=== PATIENT | male | born 1965 | race Caucasian/White ===

== ENCOUNTER 2016-11-06 09:36 | Inpatient (IN) | payer OTHER ==
[2016-11-06] MEDS ORDERED: SODIUM CHLORIDE 0.9% 1,000 ML IV STA ×2 (09:56)
--- NOTE | 2016-11-06 09:59 | ED ---
General Adult HPI - General Source: EMS, RN notes reviewed Mode of arrival: EMS Limitations: no limitations <Leandro Alvares - Last Filed: 11/06/16 10:04> <Hola Granda - Last Filed: 11/06/16 12:44> - General Chief complaint: Seizure Stated complaint: Chest Pain Time Seen by Provider: 11/06/16 09:50 - History of Present Illness Initial comments: Patient's a 21-year-old male significant past medical history for diabetes, hyperlipidemia, who presents emergency room today by EMS, the chief complaint of a seizure that occurred approximate one hour ago. Patient does admit that he was sitting watching TV. He states that he knows his was yelling at him staying over top of him. Per EMS she describes a tonic-clonic type seizure. EMS states he was somewhat postictal on arrival. Patient does admit that he remembers his standing over him asking him what happened and telling them that he had a seizure. Patient denies any other complaints at this time. Does admit to being a daily smoker of greater than pack per day. Patient denies any recent fever, chills, shortness of breath, chest pain, back pain, abdominal pain, nausea or vomiting, numbness or tingling, dysuria or hematuria, constipation or diarrhea, headaches or visual changes, or any other complaints. (Leandro Alvares) - Related Data Home Medications Medication Instructions Recorded Confirmed Aspirin EC [Ecotrin Low Dose] 81 mg PO DAILY 11/06/16 11/06/16 Atorvastatin [Lipitor] 20 mg PO HS 11/06/16 11/06/16 Ibuprofen [Motrin] 200 - 400 mg PO Q6HR PRN 11/06/16 11/06/16 metFORMIN HCL [Glucophage] 500 mg PO BID 11/06/16 11/06/16 Allergies Allergy/AdvReac Type Severity Reaction Status Date / Time No Known Allergies Allergy Verified 11/06/16 10:45 Review of Systems ROS Other: All systems not noted in ROS Statement are negative. <Leandro Alvares - Last Filed: 11/06/16 10:04> ROS Other: All systems not noted in ROS Statement are negative. <Hola Granda - Last Filed: 11/06/16 12:44> ROS Statement: Those systems with pertinent positive or pertinent negative responses have been documented in the HPI. Past Medical History Past Medical History: Coronary Artery Disease (CAD), Diabetes Mellitus, Hyperlipidemia History of Any Multi-Drug Resistant Organisms: None Reported Past Surgical History: Heart Catheterization With Stent Past Psychological History: No Psychological Hx Reported Smoking Status: Current every day smoker Past Alcohol Use History: None Reported Past Drug Use History: Marijuana <Leandro Alvares - Last Filed: 11/06/16 10:04> General Exam Limitations: no limitations <Leandro Alvares - Last Filed: 11/06/16 10:04> <Hola Granda - Last Filed: 11/06/16 12:44> - General Exam Comments Initial Comments: General: The patient is awake and alert, in no distress, and does not appear acutely ill. Eye: Pupils are equal, round and reactive to light, extra-ocular movements are intact. No nystagmus. There is normal conjunctiva bilaterally. No signs of icterus. Ears, nose, mouth and throat: There are moist mucous membranes and no oral lesions. Neck: The neck is supple, there is no tenderness or JVD. Cardiovascular: Tachycardic. No murmur, rub or gallop is appreciated. Respiratory: Lungs are clear to auscultation, respirations are non-labored, breath sounds are equal. No wheezes, stridor, rales, or rhonchi. Gastrointestinal: Soft, non-distended, non-tender abdomen without masses or organomegaly noted. There is no rebound or guarding present. No CVA tenderness. Bowel sounds are unremarkable. Musculoskeletal: Normal ROM, no tenderness. Strength 5/5. Sensation intact. Pulses equal bilaterally 2+. Neurological: A&O x 3. CN II-XII intact, There are no obvious motor or sensory deficits. Coordination appears grossly intact. Speech is normal. Skin: Skin is warm and dry and no rashes or lesions are noted. Psychiatric: Cooperative, appropriate mood & affect, normal judgment. (Leandro Alvares) EKG Findings - EKG Comments: EKG Findings:: EKG performed at 0939: Shows sinus tachycardia to 127 bpm. AR interval 142. QRS 86. QT/QTC 322/467. No acute ST changes. <Leandro Alvares - Last Filed: 11/06/16 10:04> Medical Decision Making <Leandro Alvares - Last Filed: 11/06/16 10:04> - Lab Data Result diagrams: 11/06/16 09:52 11/06/16 09:52 - Radiology Data Radiology results: report reviewed (Computed tomography scan the brain shows no acute intercranial hemorrhage. Evidence of multiple infarcts since previous CT. Computed tomography scan of the chest shows no evidence of pulmonary embolism. There is groundglass opacities, consider pulmonary edema.), image reviewed (Chest x-ray shows some vascular congestion.) <Hola Granda - Last Filed: 11/06/16 12:44> - Medical Decision Making Patient was reevaluated by myself, Dr. Granda. Patient is resting comfortably in bed and has no complaints. Heart rate and pulse ox have improved. Heart rate 88. Pulse ox 95%. Patient and family updated on results and plan. Case discussed in detail with Dr. Hudson, who will admit for Dr. mireles. Consult for pulmonary Dr. Barnett and neurology. Echo. No consult for cardiology at this time. (Hola Granda) - Lab Data Lab Results 11/06/16 11/06/16 11/06/16 Range/Units 09:52 09:52 09:52 WBC 13.7 H (3.8-10.6) k/uL RBC 5.55 (4.30-5.90) m/uL Hgb 16.7 (13.0-17.5) gm/dL Hct 51.7 (39.0-53.0) % MCV 93.2 (80.0-100.0) fL MCH 30.0 (25.0-35.0) pg MCHC 32.2 (31.0-37.0) g/dL RDW 13.3 (11.5-15.5) % Plt Count 261 (150-450) k/uL Neutrophils % 72 % Lymphocytes % 20 % Monocytes % 4 % Eosinophils % 2 % Basophils % 1 % Neutrophils # 10.0 H (1.3-7.7) k/uL Lymphocytes # 2.7 (1.0-4.8) k/uL Monocytes # 0.5 (0-1.0) k/uL Eosinophils # 0.2 (0-0.7) k/uL Basophils # 0.1 (0-0.2) k/uL PT (9.0-12.0) sec INR (<1.1) APTT (22.0-30.0) sec D-Dimer (<0.60) mg/L FEU Sodium 141 (137-145) mmol/L Potassium 4.0 (3.5-5.1) mmol/L Chloride 106 (98-107) mmol/L Carbon Dioxide 18 L (22-30) mmol/L Anion Gap 17 mmol/L BUN 9 (9-20) mg/dL Creatinine 0.76 (0.66-1.25) mg/dL Est GFR (MDRD) Af Amer >60 (>60 ml/min/1.73 sqM) Est GFR (MDRD) Non-Af >60 (>60 ml/min/1.73 sqM) Glucose 266 H (74-99) mg/dL Calcium 9.4 (8.4-10.2) mg/dL Magnesium 1.9 (1.6-2.3) mg/dL Total Bilirubin 0.5 (0.2-1.3) mg/dL AST 33 (17-59) U/L ALT 31 (21-72) U/L Alkaline Phosphatase 101 (38-126) U/L Total Creatine Kinase 114 (55-170) U/L CK-MB (CK-2) 1.6 (0.0-2.4) ng/mL CK-MB (CK-2) Rel Index 1.4 Troponin I 0.028 (0.000-0.034) ng/mL NT-Pro-B Natriuret Pep pg/mL Total Protein 7.8 (6.3-8.2) g/dL Albumin 4.2 (3.5-5.0) g/dL Urine Color Urine Appearance (Clear) Urine pH (5.0-8.0) Ur Specific [place] (1.001-1.035) Urine Protein (Negative) Urine Glucose (UA) (Negative) Urine Ketones (Negative) Urine Blood (Negative) Urine Nitrite (Negative) Urine Bilirubin (Negative) Urine Urobilinogen (<2.0) mg/dL Ur Leukocyte Esterase (Negative) Urine RBC (0-5) /hpf Urine WBC (0-5) /hpf Urine Mucus (None) /hpf 11/06/16 11/06/16 11/06/16 Range/Units 09:52 11:34 12:08 WBC (3.8-10.6) k/uL RBC (4.30-5.90) m/uL Hgb (13.0-17.5) gm/dL Hct (39.0-53.0) % MCV (80.0-100.0) fL MCH (25.0-35.0) pg MCHC (31.0-37.0) g/dL RDW (11.5-15.5) % Plt Count (150-450) k/uL Neutrophils % % Lymphocytes % % Monocytes % % Eosinophils % % Basophils % % Neutrophils # (1.3-7.7) k/uL Lymphocytes # (1.0-4.8) k/uL Monocytes # (0-1.0) k/uL Eosinophils # (0-0.7) k/uL Basophils # (0-0.2) k/uL PT 10.5 (9.0-12.0) sec INR 1.0 (<1.1) APTT 20.8 L (22.0-30.0) sec D-Dimer 15.04 H (<0.60) mg/L FEU Sodium (137-145) mmol/L Potassium (3.5-5.1) mmol/L Chloride (98-107) mmol/L Carbon Dioxide (22-30) mmol/L Anion Gap mmol/L BUN (9-20) mg/dL Creatinine (0.66-1.25) mg/dL Est GFR (MDRD) Af Amer (>60 ml/min/1.73 sqM) Est GFR (MDRD) Non-Af (>60 ml/min/1.73 sqM) Glucose (74-99) mg/dL Calcium (8.4-10.2) mg/dL Magnesium (1.6-2.3) mg/dL Total Bilirubin (0.2-1.3) mg/dL AST (17-59) U/L ALT (21-72) U/L Alkaline Phosphatase (38-126) U/L Total Creatine Kinase (55-170) U/L CK-MB (CK-2) (0.0-2.4) ng/mL CK-MB (CK-2) Rel Index Troponin I (0.000-0.034) ng/mL NT-Pro-B Natriuret Pep 71 pg/mL Total Protein (6.3-8.2) g/dL Albumin (3.5-5.0) g/dL Urine Color Yellow Urine Appearance Clear (Clear) Urine pH 5.5 (5.0-8.0) Ur Specific [place] 1.010 (1.001-1.035) Urine Protein 2+ H (Negative) Urine Glucose (UA) 2+ H (Negative) Urine Ketones Trace H (Negative) Urine Blood Trace H (Negative) Urine Nitrite Negative (Negative) Urine Bilirubin Negative (Negative) Urine Urobilinogen <2.0 (<2.0) mg/dL Ur Leukocyte Esterase Negative (Negative) Urine RBC 1 (0-5) /hpf Urine WBC 1 (0-5) /hpf Urine Mucus Rare H (None) /hpf Disposition <Leandro Alvares - Last Filed: 11/06/16 10:04> Time of Disposition: 12:22 <Hola Granda - Last Filed: 11/06/16 12:44> Clinical Impression: New onset seizure Disposition: ADMITTED IP TO THIS HOSP
[2016-11-06 10:52] LABS: Basophils # (A) 0.1 k/uL (0-0.2); Basophils % (A) 1 %; CH 30.5; CHCM 32.9; Eosinophils # (A) 0.2 k/uL (0-0.7); Eosinophils % (A) 2 %; HCT 51.7 % (39.0-53.0); HDW 2.34; HGB 16.7 gm/dL (13.0-17.5); Luc # (Auto) 0.19; Luc % (Auto) 1; Lymphocytes # (A) 2.7 k/uL (1.0-4.8); Lymphocytes % (A) 20 %; MCHC 32.2 g/dL (31.0-37.0); MCV 93.2 fL (80.0-100.0); Mean Platelet Volume 8.3; Monocytes # (A) 0.5 k/uL (0-1.0); Monocytes % (A) 4 %; Neutrophils % (A) 72 %; RBC 5.55 m/uL (4.30-5.90); RDW 13.3 % (11.5-15.5); WBC 13.7 k/uL (3.8-10.6); WBC (Perox) 13.11
--- NOTE | 2016-11-06 10:52 | CT ---
EXAMINATION TYPE: CT brain wo con DATE OF EXAM: 11/06/2016 10:34 AM COMPARISON: Prior head CT February HISTORY: Seizure activity CT DLP: 1047.10 mGycm Automated exposure control for dose reduction was used. FINDINGS: There is no acute intracranial hemorrhage, mass effect, or midline shift identified. The ventricles and sulci are within normal limits in size. Cerebral vascular calcifications are present. Cortical at rophy is present. There is evidence of interval encephalomalacia in the right occipital lobe, ex vacu o phenomenon present in the occipital horn of the right lateral ventricle. White matter demyelination changes are present. Right and left frontoparietal region show some questionable encephalomalacia is developed in the interval, right temporal lobe shows interval encephalomalacia. The globes are intac t and the visualized sinuses are remarkable for inflammatory change within the sphenoid, ethmoid air cells, bilateral maxillary sinus, mastoids are well aerated.. Cephalohematoma over the posterior jostin etal region. IMPRESSION: No acute intracranial hemorrhage, mass effect, or midline shift is seen. Evidence of chronic small ve ssel ischemia. Multiple infarcts have occurred in the interval from last head CT, correlate to exclud e an embolic phenomenon, MRI may be of benefit
--- NOTE | 2016-11-06 11:00 | XR ---
EXAMINATION TYPE: XR chest 2V DATE OF EXAM: 11/06/2016 10:39 AM COMPARISON: NONE HISTORY: Shortness of breath, heart attack TECHNIQUE: Frontal and lateral views of the chest are obtained on 3 images. FINDINGS: Interstitium is increased. Heart size is within normal limits. No pneumothorax or pleural effusion. Scattered areas of airspace disease present bilaterally. IMPRESSION: Findings may represent pulmonary edema, correlate. Follow-up recommended.
[2016-11-06 11:01] LABS: Prothrombin Time 10.5 sec (9.0-12.0)
[2016-11-06 11:02] LABS: ALT 31 U/L (21-72); AST 33 U/L (17-59); Alkaline Phosphatase 101 U/L (38-126); Anion Gap 17 mmol/L; Blood Urea Nitrogen 9 mg/dL (9-20); Calcium 9.4 mg/dL (8.4-10.2); Carbon Dioxide 18 mmol/L (22-30); Chloride 106 mmol/L (98-107); Glucose 266 mg/dL (74-99); Magnesium 1.9 mg/dL (1.6-2.3); Non-African American GFR(MDRD) >60 (>60 ml/min/1.73 sqM); Sodium 141 mmol/L (137-145); Total Bilirubin 0.5 mg/dL (0.2-1.3); Total Protein 7.8 g/dL (6.3-8.2)
[2016-11-06 11:23] LABS: Partial Thromboplastin Time 20.8 sec (22.0-30.0)
[2016-11-06] MEDS ORDERED: RX INFO: IV CONTRAST WAS GIVEN 1 EACH MISC MISCELLANE PRN (11:29)
[2016-11-06 11:48] LABS: Creatine Kinase MB 1.6 ng/mL (0.0-2.4); Troponin I 0.028 ng/mL (0.000-0.034)
--- NOTE | 2016-11-06 12:14 | CT ---
CT CHEST FOR PULMONARY EMBOLISM. EXAMINATION TYPE: CT angio chest DATE OF EXAM: 11/06/2016 12:06 PM INDICATION: Chest pain. PE. CT DLP: 375.30 mGycm, Automated exposure control for dose reduction was used. CONTRAST: Patient injected with 100 ml mL of Omnipaque 350. COMPARISON: NONE TECHNIQUE: CT of the chest is performed on a spiral scan at 2 mm thick sections. Study is performed with intravenous contrast timed for evaluation for pulmonary embolism. This will limit additional po rtions of the evaluation. 3-D MIP images reconstructed by the technologist are reviewed on the compu ter in the coronal and sagittal planes. FINDINGS: No persistent filling defects are evident to suggest an acute pulmonary embolism. No mediastinal or hilar adenopathy enlarged by CT criteria is evident. Some nonenlarged right hilar a nd subcarinal adenopathy is present. The ascending aorta diameter at the level of the main pulmonary artery is 4.3 cm. The main pulmonary artery diameter at the bifurcation is 3.3 cm. Groundglass opacities are in the upper lung diallo. Some pulmonary edema may be present. Infiltrates in the superior segment lower lobe suggestive for some pulmonary edema. Limited CT section through the upper abdomen are unremarkable. IMPRESSIONS: 1. Diffuse groundglass opacities suggestive for mild pulmonary edema. 2. No suspicious pulmonary emboli.
[2016-11-06 12:20] LABS: Appearance,Urine Clear (Clear); Bilirubin,Urine Negative (Negative); Glucose,Urine (UA) 2+ (Negative); Ketones,Urine Trace (Negative); Leukocyte Esterase,Urine Negative (Negative); Mucus,Urine Rare /hpf; Nitrite,Urine Negative (Negative); PH, Urine 5.5 (5.0-8.0); Particle Count 2113; Protein,Urine 2+ (Negative); RBC,Urine 1 /hpf (0-5); UA Billing (MACRO vs. MICRO) MICRO; Urobilinogen,Urine <2.0 mg/dL (<2.0); WBC,Urine 1 /hpf (0-5)
[2016-11-06] MEDS ORDERED: LORazepam 2 MG/ML SYRINGE IV PRN (12:23)
[2016-11-06] MEDS ORDERED: NALOXONE 0.4 MG/ML 1 ML VIAL IV PRN (12:23)
[2016-11-06] MEDS ORDERED: PHENYTOIN SODIUM INJ 1,000 MG in SODIUM CHLORIDE 0.9% 100 ML IVPB STA (12:31)
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
[2016-11-06 16:54] LABS: Glucose,Whole Blood 172 mg/dL (75-99)
[2016-11-06] MEDS: PHENYTOIN SODIUM EXTENDED 100 MG CAP PO SCH ×2 (17:20→20:57)
--- NOTE | 2016-11-06 17:41 | P.HPIM ---
History of Present Illness H&P Date: 11/06/16 Chief Complaint: New onset seizure John Da Silva is a 51 year old male who presented to [facility] after having a seizure at home. Patient's is at bedside and she states that he was laying on the couch when he started having significant stiffness in his extremities and repetitive movements of his head, this episode lasted 4-5 minutes, patient's called EMS, after 5 minutes he was able to open his eyes he was confused, he states that he never had any seizures before. Patient states that 12 years ago he had a stroke with left sided weakness his symptoms has resolved since then. He also states that he had a myocardial infarction in 2010 he had severe pain in the chest he called EMS and was brought in to [facility] he underwent angioplasty and stent placement of the LAD Patient continues to smoke, he has known history of diabetes mellitus and hyperlipidemia Past Medical History Past Medical History: Coronary Artery Disease (CAD), Diabetes Mellitus, Hyperlipidemia History of Any Multi-Drug Resistant Organisms: None Reported Past Surgical History: Heart Catheterization With Stent Date of Last Stent Placement:: 2003 Past Psychological History: No Psychological Hx Reported Smoking Status: Current every day smoker Past Alcohol Use History: None Reported Past Drug Use History: Marijuana Medications and Allergies Home Medications Medication Instructions Recorded Confirmed Type Aspirin EC [Ecotrin Low Dose] 81 mg PO DAILY 11/06/16 11/06/16 History Atorvastatin [Lipitor] 20 mg PO HS 11/06/16 11/06/16 History Ibuprofen [Motrin] 200 - 400 mg PO Q6HR PRN 11/06/16 11/06/16 History metFORMIN HCL [Glucophage] 500 mg PO BID 11/06/16 11/06/16 History Allergies Allergy/AdvReac Type Severity Reaction Status Date / Time No Known Allergies Allergy Verified 11/06/16 10:45 Physical Exam Vitals: Vital Signs Temp Pulse Pulse Resp BP BP Pulse Ox 11/06/16 16:00 90 16 107/67 92 L 11/06/16 13:40 98.1 F 92 16 108/70 11/06/16 12:55 98.5 F 93 18 104/62 95 Intake and Output 11/06/16 11/06/16 11/06/16 06:59 14:59 22:59 Intake Total 200 Balance 200 Intake: Intake, IV Titration 200 Amount Sodium Chloride 0.9% 1, 200 000 ml @ 100 mls/hr IV . Q10H STA Rx#:[id number] Other: Weight 86.183 kg Patient Weight 11/07/16 06:59 Weight 86.183 kg In general patient is alert and oriented 3 in no apparent distress HEENT head normocephalic and atraumatic Neck is supple no JVD no goiter no lymphadenopathy Chest exam reveals a few scattered crackles no wheezing Cardiac exam reveals regular heart sounds no gallops no murmurs Abdomen is soft nontender no organomegaly was normal bowel sounds Extremity exam reveals no edema no cyanosis or clubbing Neurological examination reveals no gross focal deficit Results CBC & Chem 7: 11/06/16 09:52 11/06/16 09:52 Labs: Abnormal Lab Results - Last 24 Hours (Table) 11/06/16 Range/Units 16:42 POC Glucose (mg/dL) 172 H (75-99) mg/dL Thrombosis Risk Factor Assmnt - Choose All That Apply Each Factor Represents 1 point: Age 41-60 years Thrombosis Risk Factor Assessment Total Risk Factor Score: 1 Thrombosis Risk Factor Assessment Level: Low Risk Assessment and Plan Plan: #1 new onset seizure, patient was started on IV Dilantin in the emergency room consultation for neurology was requested #2 previous history of stroke 12 years ago #3 previous history of coronary artery disease with myocardial infarction in 2010 #4 underlying history of diabetes mellitus type 2 with check hemoglobin A1c #5 underlying history of hyperlipidemia continue statin and check lipid profile #6 seizure precautions #7 for DVT prophylaxis patient will be given Lovenox for GI prophylaxis with give Protonix #8 tobacco abuse counseled in length in regards to smoking cessation counseling more than 10 minutes patient was started on nicotine patch Will follow closely
--- NOTE | 2016-11-06 17:49 | US ---
EXAMINATION TYPE: US carotid duplex BILAT DATE OF EXAM: 11/06/2016 4:34 PM COMPARISON: CT 2017 CLINICAL HISTORY: Multiple strokes. Confusion; abnormal ct EXAM MEASUREMENTS: RIGHT: Peak Systolic Velocity (PSV) cm/sec ----- Right CCA: 42.7 ----- Right ICA: 71.3 ----- Right ECA: 169.4 ICA/CCA ratio: 1.7 RIGHT: End Diastole cm/sec ----- Right CCA: 17.4 ----- Right ICA: 28.5 ----- Right ECA: 0.0 LEFT: Peak Systolic Velocity (PSV) cm/sec ----- Left CCA: 63.6 ----- Left ICA: 89.2 ----- Left ECA: 124.2 ICA/CCA ratio: 1.4 LEFT: End Diastole cm/sec ----- Left CCA: 24.1 ----- Left ICA: 40.0 ----- Left ECA: 33.8 VERTEBRALS (direction of flow): Right Vertebral: Antegrade Left Vertebral: occluded 1. Bilateral intimal thickening; irregular soft plaque within bilateral bulbs. 2. No elevated velocities in either ICA. 3. No significant stenosis. 4. Occluded left vertebral. There is some turbulent flow on the right. IMPRESSION: 1. No flow-limiting stenosis within the internal carotid arteries. 2. Coronary artery. 3. Bilateral atheromatous plaquing and intimal thickening. Criteria for Assigning % of Stenosis / Diameter reduction (Estimation based on the indirect measurements of the internal carotid artery velocities (ICA PSV). 1. Normal (no stenosis)=ICA PSV < 125 cm/s: ratio < 2.0: ICA EDV<40 cm/s. 2. Less than 50% stenosis=ICA PSV < 125 cm/s: ratio < 2.0: ICA EDV<40 cm/s. 3. 50 to 69% stenosis=ICA PSV of 125 to 230 cm/s: ration 2.0 ? 4.0: ICA EDV 40-100 cm/s. 4. Greater than 70% stenosis to near occlusion= ICA PSV > 230 cm/s: ratio > 4.0: ICA EDV > 100 cm/s. 5. Near occlusion= ICA PSV velocities may be low or undetectable: variable ratio and ICA EDV. 6. Total occlusion=unable to detect flow.
[2016-11-06 19:40] LABS: Creatine Kinase MB 5.4 ng/mL (0.0-2.4)
[2016-11-06 19:41] LABS: Troponin I 0.999 ng/mL (0.000-0.034)
[2016-11-06] MEDS: SODIUM CHLORIDE 0.9% 1,000 ML IV SCH (19:43)
[2016-11-06 21:11] LABS: Glucose,Whole Blood 143 mg/dL (75-99)
[2016-11-06] MEDS: NICOTINE 21MG/24HR PATCH TRANSDERM SCH (22:17)
[2016-11-07] MEDS: FUROSEMIDE 10 MG/ML 2 ML VIAL IV SCH ×3 (00:05→20:20)
[2016-11-07] MEDS: PIPERACILLIN-TAZOBACTAM 3.375 GM in DEXTROSE/WATER 1 50ML.BAG IVPB SCH ×2 (00:06→08:50)
[2016-11-07 00:51] LABS: Creatine Kinase MB 5.9 ng/mL (0.0-2.4); Troponin I 1.01 ng/mL (0.000-0.034)
[2016-11-07] MEDS: HYDROcodone/APAP 5-325MG 1 EACH TAB PO PRN ×3 (01:42→20:19)
[2016-11-07] MEDS: MELATONIN 5 MG TABLET PO SCH ×2 (02:15→22:11)
[2016-11-07 06:25] LABS: Glucose,Whole Blood 168 mg/dL (75-99)
[2016-11-07] MEDS: INSULIN LISPRO (humaLOG) 300 UNIT/3 ML VIAL SQ SCH ×4 (06:51→20:59)
[2016-11-07 07:17] LABS: Basophils # (A) 0.1 k/uL (0-0.2); Basophils % (A) 0 %; CH 30.8; CHCM 33.8; Eosinophils # (A) 0.2 k/uL (0-0.7); Eosinophils % (A) 1 %; HCT 45.2 % (39.0-53.0); HGB 14.9 gm/dL (13.0-17.5); Luc # (Auto) 0.32; Luc % (Auto) 2; Lymphocytes % (A) 25 %; MCH 30.2 pg (25.0-35.0); MCHC 32.9 g/dL (31.0-37.0); MCV 91.7 fL (80.0-100.0); Monocytes # (A) 1.1 k/uL (0-1.0); Monocytes % (A) 7 %; Neutrophils # (A) 10.4 k/uL (1.3-7.7); Neutrophils % (A) 65 %; RBC 4.94 m/uL (4.30-5.90); RDW 13.5 % (11.5-15.5); WBC (Perox) 16.91
[2016-11-07 07:35] LABS: ALT 36 U/L (21-72); AST 36 U/L (17-59); Alkaline Phosphatase 86 U/L (38-126); Anion Gap 12 mmol/L; Blood Urea Nitrogen 8 mg/dL (9-20); Calcium 9.5 mg/dL (8.4-10.2); Carbon Dioxide 23 mmol/L (22-30); Chloride 105 mmol/L (98-107); Cholesterol 133 mg/dL (<200); Glucose 164 mg/dL (74-99); HDL Cholesterol 48 mg/dL (40-60); Non-African American GFR(MDRD) >60 (>60 ml/min/1.73 sqM); Sodium 140 mmol/L (137-145); Total Bilirubin 0.9 mg/dL (0.2-1.3); Total Protein 7.2 g/dL (6.3-8.2); Triglycerides 110 mg/dL (<150)
--- NOTE | 2016-11-07 07:51 | XR ---
EXAMINATION TYPE: XR chest 1V portable DATE OF EXAM: 11/07/2016 7:21 AM COMPARISON: 11/06/2016 HISTORY: History of congestive heart failure with concern for aspiration pneumonia TECHNIQUE: Single frontal view of the chest is obtained. FINDINGS: There is no focal air space opacity, pleural effusion, or pneumothorax seen. The previousl y seen interstitial prominence has resolved. The cardiac silhouette size is within normal limits. T he osseous structures are intact. The right costophrenic angle is now deeper on this examination than the prior, likely an incidental finding although reevaluation is recommended. IMPRESSION: 1. Resolved interstitial prominence. 2. No focal consolidation to correspond to the patient's provided history of aspiration pneumonia. 3. Right costophrenic angle is now deeper than on the prior examinations, likely an incidental findin g, although expiratory chest radiograph could be performed if there is clinical suspicion for pneumot horax.
[2016-11-07] MEDS: PHENYTOIN SODIUM EXTENDED 100 MG CAP PO SCH ×3 (08:50→20:19)
[2016-11-07] MEDS: NICOTINE 21MG/24HR PATCH TRANSDERM SCH (08:50)
[2016-11-07] MEDS ORDERED: NITROGLYCERIN SL TABS 0.4 MG TAB SUBLINGUAL PRN ×2 (09:26→13:41)
[2016-11-07] MEDS ORDERED: HEPARIN SODIUM,PORCINE 5,000 UNIT/ML 1 ML VIAL IV ONE (09:27)
[2016-11-07] MEDS ORDERED: HEPARIN SODIUM,PORCINE 5,000 UNIT/ML 1 ML VIAL IV PRN (09:27)
[2016-11-07 09:47] LABS: Appearance,Urine Clear (Clear); Bilirubin,Urine Negative (Negative); Glucose,Urine (UA) Negative (Negative); Ketones,Urine Negative (Negative); Leukocyte Esterase,Urine Negative (Negative); Nitrite,Urine Negative (Negative); Protein,Urine Negative (Negative); Specific Gravity,Urine 1.007 (1.001-1.035); UA Billing (MACRO vs. MICRO) CHEM; Urobilinogen,Urine <2.0 mg/dL (<2.0)
--- NOTE | 2016-11-07 10:06 | P.CRDCN ---
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 The patient was at home with his when he suddenly lost his consciousness. He was brought to the emergency room by ambulance. In the ER he was in acute respiratory distress and he felt better after he was given Lasix IV. Earlier today he was experiencing upper back discomfort. The EKG showed sinus rhythm with ST elevation in aVR and diffuse ST segment depression finding consistent and concerning for proximal LAD disease. The cardiac enzymes were checked and came in to be abnormal and consistent with acute [place]. I am concerned about severe CAD. The patient was ruled in for acute non-STEMI. I recommended proceeding with heart catheterization. I would start the patient on aspirin, metoprolol, and statin. I will obtain an echocardiogram was Doppler. Past Medical History Past Medical History: Coronary Artery Disease (CAD), Diabetes Mellitus, Hyperlipidemia History of Any Multi-Drug Resistant Organisms: None Reported Past Surgical History: Heart Catheterization With Stent Date of Last Stent Placement:: 2003 Past Psychological History: No Psychological Hx Reported Smoking Status: Current every day smoker Past Alcohol Use History: None Reported Past Drug Use History: Marijuana Medications and Allergies Home Medications Medication Instructions Recorded Confirmed Type Aspirin EC [Ecotrin Low Dose] 81 mg PO DAILY 11/06/16 11/06/16 History Atorvastatin [Lipitor] 20 mg PO HS 11/06/16 11/06/16 History Ibuprofen [Motrin] 200 - 400 mg PO Q6HR PRN 11/06/16 11/06/16 History metFORMIN HCL [Glucophage] 500 mg PO BID 11/06/16 11/06/16 History Allergies Allergy/AdvReac Type Severity Reaction Status Date / Time No Known Allergies Allergy Verified 11/06/16 10:45 Physical Exam Vitals: Vital Signs Temp Pulse Pulse Resp BP BP Pulse Ox 11/07/16 08:00 98.7 F 85 16 133/78 94 L 11/07/16 04:00 97.8 F 87 17 132/82 93 L 11/07/16 00:00 98.9 F 97 16 119/76 96 05/06/17 20:00 99.3 F 93 17 102/59 94 L 11/06/16 16:00 90 16 107/67 92 L 11/06/16 13:40 98.1 F 92 16 108/70 11/06/16 12:55 98.5 F 93 18 104/62 95 Intake and Output 11/06/16 11/07/16 11/07/16 22:59 06:59 14:59 Intake Total 460 250 Output Total 820 400 Balance -360 -150 Intake: IV 250 Piperacillin-Tazobactam 3 50 .375 gm In Dextrose/Water 1 50ml.bag @ 12.5 mls/hr IVPB Q8HR ANJEL Rx#: [id number] Sodium Chloride 0.9% 1, 200 000 ml @ 20 mls/hr IV . Q24H ANJEL Rx#:[id number] Intake, IV Titration 200 Amount Sodium Chloride 0.9% 1, 200 000 ml @ 100 mls/hr IV . Q10H STA Rx#:[id number] Oral 260 Output: Urine 820 400 Other: Voiding Method Urinal Urinal # Voids 1 1 Weight 83.1 kg - Constitutional General appearance: no acute distress - Respiratory Respiratory: bilateral: CTA - Cardiovascular Rhythm: regular Heart sounds: normal: S1, S2 Results 11/07/16 06:20 11/07/16 06:20 Cardiac Enzymes 11/06/16 11/07/16 11/07/16 Range/Units 18:00 00:00 06:20 AST 36 (17-59) U/L CK-MB (CK-2) 5.4 H* 5.9 H* (0.0-2.4) ng/mL Troponin I 0.999 H* 1.010 H* (0.000-0.034) ng/mL Lipids 11/07/16 Range/Units 06:20 Triglycerides 110 (<150) mg/dL Cholesterol 133 (<200) mg/dL HDL Cholesterol 48 (40-60) mg/dL CBC 11/07/16 Range/Units 06:20 WBC 16.0 H (3.8-10.6) k/uL RBC 4.94 (4.30-5.90) m/uL Hgb 14.9 (13.0-17.5) gm/dL Hct 45.2 (39.0-53.0) % Plt Count 229 (150-450) k/uL Comprehensive Metabolic Panel 11/07/16 Range/Units 06:20 Sodium 140 (137-145) mmol/L Potassium 4.0 (3.5-5.1) mmol/L Chloride 105 (98-107) mmol/L Carbon Dioxide 23 (22-30) mmol/L BUN 8 L (9-20) mg/dL Creatinine 0.70 (0.66-1.25) mg/dL Glucose 164 H (74-99) mg/dL Calcium 9.5 (8.4-10.2) mg/dL AST 36 (17-59) U/L ALT 36 (21-72) U/L Alkaline Phosphatase 86 (38-126) U/L Total Protein 7.2 (6.3-8.2) g/dL Albumin 4.0 (3.5-5.0) g/dL Current Medications Generic Name Dose Route Start Last Admin Trade Name Freq PRN Reason Stop Dose Admin Hydrocodone Bitart/Acetaminophen 1 each 11/07/16 01:28 11/07/16 06:54 Brenham 5-325 PO 1 each Q6HR PRN Administration Pain Aspirin 325 mg 11/08/16 09:00 Aspirin PO DAILY [facility] Atorvastatin Calcium 80 mg 11/07/16 21:00 Lipitor PO HS ANJEL Furosemide 20 mg 11/06/16 22:30 11/07/16 08:50 Lasix IV 20 mg Q12HR ANJEL Administration Heparin Sodium (Porcine) 0 unit 11/07/16 09:27 Heparin IV PER PROTOCOL PRN Low PTT Protocol Sodium Chloride 1,000 mls @ 20 mls/hr 11/06/16 12:30 11/06/16 19:43 Saline 0.9% IV Not Given .Q24H ANJEL Heparin Sodium/Dextrose 25,000 500 mls @ 19.94 mls/hr 11/07/16 09:30 unit/ IV Solution IV .Q24H [facility] Protocol 12 UNITS/KG/HR Insulin Human Lispro 0 unit 11/07/16 07:30 11/07/16 06:51 Humalog SQ 2 unit ACHS ANJEL Administration Protocol Lorazepam 0.5 mg 11/06/16 12:23 11/07/16 08:57 Ativan IV 0.5 mg Q6HR PRN Administration Anxiety Melatonin 5 mg 11/07/16 02:00 11/07/16 02:15 Melatonin PO 5 mg HS ANJEL Administration Metoprolol Tartrate 12.5 mg 11/07/16 21:00 Lopressor PO BID ANJEL Miscellaneous Information 1 each 11/06/16 11:29 Rx Info: Iv Contrast Was Given MISCELLANE 11/08/16 11:29 DAILY PRN Per Protocol Naloxone HCl 0.2 mg 11/06/16 12:23 Narcan IV Q2M PRN Opioid Reversal Nicotine 1 patch 11/06/16 22:30 11/07/16 08:50 Habitrol 21mg/24hr Patch TRANSDERM 1 patch DAILY ANJEL Administration Nitroglycerin 0.4 mg 11/07/16 09:26 Nitrostat SUBLINGUAL Q5M PRN Chest Pain Phenytoin Sodium 100 mg 11/06/16 16:00 11/07/16 08:50 Dilantin PO 100 mg TID ANJEL Administration Intake and Output 11/06/16 11/07/16 11/07/16 22:59 06:59 14:59 Intake Total 460 250 Output Total 820 400 Balance -360 -150 Intake: IV 250 Piperacillin-Tazobactam 3 50 .375 gm In Dextrose/Water 1 50ml.bag @ 12.5 mls/hr IVPB Q8HR ANJEL Rx#: [id number] Sodium Chloride 0.9% 1, 200 000 ml @ 20 mls/hr IV . Q24H ANJEL Rx#:[id number] Intake, IV Titration 200 Amount Sodium Chloride 0.9% 1, 200 000 ml @ 100 mls/hr IV . Q10H STA Rx#:[id number] Oral 260 Output: Urine 820 400 Other: Voiding Method Urinal Urinal # Voids 1 1 Weight 83.1 kg 11/07/16 06:20 11/07/16 06:20 Assessment and Plan Plan: Assessment #1 acute non-ST #2 CAD and prior LAD stenting #3 significant history of smoking Plan #1 proceeding with heart catheterization #2 start aspirin, statin, and metoprolol #3 an echocardiogram was Doppler #4 follow-up with the patient
--- NOTE | 2016-11-07 10:31 | P.PN ---
Subjective Principal diagnosis: New onset seizure Patient is a 51-year-old male with previous history of coronary artery disease, acute [place] and stent placement 12 years ago also previous history of stroke or presented to [facility] emergency room with what appears to be a seizures that lasted 4-5 minutes per his 's description he was evaluated in emergency room and was started on IV Dilantin and was admitted to telemetry floor. Troponin was elevated on presentation patient was denying any history of chest pain. Cardiology consultation was requested troponin is slightly more elevated today and patient had some EKG changes patient is still denying any chest pain however due to EKG changes and elevated troponin level decision was made to proceed with cardiac catheterization today. On review of systems patient is alert and oriented 3 he denies any complaints at this time no new seizure activity since admission there is no fever or chills no headache no dizziness no chest pain or shortness of breath no cough no nausea or vomiting no abdominal pain no diarrhea or constipation and no urinary symptoms Objective - Vital Signs Vital signs: Vital Signs Temp 98.7 F 11/07/16 08:00 Pulse 85 11/07/16 08:00 Resp 16 11/07/16 08:00 BP 133/78 11/07/16 08:00 Pulse Ox 94 L 11/07/16 08:00 Intake & Output 11/06/16 11/07/16 11/07/16 18:59 06:59 18:59 Intake Total 460 250 Output Total 1220 Balance 460 -970 Weight 86.183 kg 83.1 kg Intake: IV 250 Piperacillin-Tazobactam 3 50 .375 gm In Dextrose/Water 1 50ml.bag @ 12.5 mls/hr IVPB Q8HR ANJEL Rx#: [id number] Sodium Chloride 0.9% 1, 200 000 ml @ 20 mls/hr IV . Q24H ANJEL Rx#:[id number] Intake, IV Titration 200 Amount Sodium Chloride 0.9% 1, 200 000 ml @ 100 mls/hr IV . Q10H STA Rx#:[id number] Oral 260 Output: Urine 1220 Other: Voiding Method Urinal # Voids 1 - Exam HEENT head normocephalic and atraumatic Neck is supple no JVD no goiter no lymphadenopathy Chest exam reveals clear respiratory sounds no crackles no wheezing Cardiac exam reveals regular heart sounds S1 and S2 no gallops no murmurs Abdomen is soft nontender no organomegaly with normal bowel sounds Extremity exam reveals no edema no cyanosis or clubbing - Labs CBC & Chem 7: 11/07/16 06:20 11/07/16 06:20 Labs: Abnormal Lab Results - Last 24 Hours (Table) 11/06/16 11/06/16 11/06/16 Range/Units 16:42 18:00 21:08 WBC (3.8-10.6) k/uL Neutrophils # (1.3-7.7) k/uL Monocytes # (0-1.0) k/uL BUN (9-20) mg/dL Glucose (74-99) mg/dL POC Glucose (mg/dL) 172 H 143 H (75-99) mg/dL Total Creatine Kinase 314 H (55-170) U/L CK-MB (CK-2) 5.4 H* (0.0-2.4) ng/mL Troponin I 0.999 H* (0.000-0.034) ng/mL 11/07/16 11/07/16 11/07/16 Range/Units 00:00 06:20 06:20 WBC 16.0 H (3.8-10.6) k/uL Neutrophils # 10.4 H (1.3-7.7) k/uL Monocytes # 1.1 H (0-1.0) k/uL BUN 8 L (9-20) mg/dL Glucose 164 H (74-99) mg/dL POC Glucose (mg/dL) (75-99) mg/dL Total Creatine Kinase 393 H (55-170) U/L CK-MB (CK-2) 5.9 H* (0.0-2.4) ng/mL Troponin I 1.010 H* (0.000-0.034) ng/mL 11/07/16 Range/Units 06:23 WBC (3.8-10.6) k/uL Neutrophils # (1.3-7.7) k/uL Monocytes # (0-1.0) k/uL BUN (9-20) mg/dL Glucose (74-99) mg/dL POC Glucose (mg/dL) 168 H (75-99) mg/dL Total Creatine Kinase (55-170) U/L CK-MB (CK-2) (0.0-2.4) ng/mL Troponin I (0.000-0.034) ng/mL Assessment and Plan Plan: #1 new onset seizure, patient was started on IV Dilantin in the emergency room consultation for neurology was requested #2 previous history of stroke 12 years ago #3 previous history of coronary artery disease with myocardial infarction in 2010 #4 underlying history of diabetes mellitus type 2 with check hemoglobin A1c #5 underlying history of hyperlipidemia continue statin and check lipid profile #6 EKG changes and elevated troponin levels patient was evaluated by cardiology and plan is to proceed was cardiac catheterization today #7 for DVT prophylaxis patient will be given Lovenox for GI prophylaxis with give Protonix #8 tobacco abuse counseled in length in regards to smoking cessation counseling more than 10 minutes patient was started on nicotine patch Will follow closely
[2016-11-07 10:33] LABS: Basophils # (A) 0.1 k/uL (0-0.2); Basophils % (A) 1 %; CH 30.8; CHCM 33.8; Eosinophils # (A) 0.2 k/uL (0-0.7); Eosinophils % (A) 2 %; HCT 44.8 % (39.0-53.0); Luc % (Auto) 2; Lymphocytes # (A) 3.5 k/uL (1.0-4.8); Lymphocytes % (A) 26 %; MCH 30.6 pg (25.0-35.0); MCHC 33.4 g/dL (31.0-37.0); MCV 91.6 fL (80.0-100.0); Mean Platelet Volume 7.9; Monocytes # (A) 0.7 k/uL (0-1.0); Monocytes % (A) 5 %; Neutrophils % (A) 66 %; RBC 4.89 m/uL (4.30-5.90); RDW 13.4 % (11.5-15.5); WBC 13.7 k/uL (3.8-10.6); WBC (Perox) 13.62
--- NOTE | 2016-11-07 10:38 | P.CNPUL ---
History of Present Illness Consult date: 11/07/16 Requesting physician: Wu Hudson Reason for consult: other (Abnormal chest x-ray suggestive of congestive heart failure) Chief complaint: Seizure episode. History of present illness: This is a 51-year-old white male with history of multiple medical problems including diabetes, hyperlipidemia, coronary artery disease and previous stent placement, patient was brought into the ER after an episode of tonic clonic contractions suggestive of a grand mal seizure. This was witnessed by his while he was sitting and watching television. Patient was brought into the ER, and he was post ictal on arrival. Chest x-ray on admission showed evidence of interstitial edema. No history to suggest aspiration. However that was definitely in the differential based on the chest x-ray. Last night I reviewed the chest x-ray, and I recommended diuretics, I also recommended empiric antibiotics in the form of Zosyn. Today's chest x-ray showed a significant and dramatic improvement over the last 12 hours. Hence I will go ahead and discontinue antibiotics, I recommended keeping diuretics on board, and I discussed his condition with the seismographer who was consulted mostly because of his abnormal troponin and his underlying history of coronary artery disease. At the time of my evaluation today, patient is relatively asymptomatic, he would like to be discharged home, denies any cough no wheezing no shortness of breath no chest pain. EKG showed sinus rhythm with ST elevation in aVR and diffuse ST segment depression suggestive of proximal LAD disease. And considering his abnormal troponin, patient is being considered for possible cardiac catheterization. In the meantime he was started on aspirin and metoprolol and statins. Echocardiogram is pending. Review of Systems 14 point review of systems were obtained, please refer to pertinent positives and negatives as per HPI. Presently, the patient denies any headaches, no blurred vision, no dizziness. No shortness of breath no cough no wheezing. No chest pain no palpitations. No nausea no vomiting no abdominal pain no melena no hematemesis no dysuria frequency or urgency. Patient has some vague back pain. Past Medical History Past Medical History: Coronary Artery Disease (CAD), Diabetes Mellitus, Hyperlipidemia History of Any Multi-Drug Resistant Organisms: None Reported Past Surgical History: Heart Catheterization With Stent Date of Last Stent Placement:: 2003 Past Psychological History: No Psychological Hx Reported Smoking Status: Current every day smoker Past Alcohol Use History: None Reported Past Drug Use History: Marijuana Medications and Allergies Home Medications Medication Instructions Recorded Confirmed Type Aspirin EC [Ecotrin Low Dose] 81 mg PO DAILY 11/06/16 11/06/16 History Atorvastatin [Lipitor] 20 mg PO HS 11/06/16 11/06/16 History Ibuprofen [Motrin] 200 - 400 mg PO Q6HR PRN 11/06/16 11/06/16 History metFORMIN HCL [Glucophage] 500 mg PO BID 11/06/16 11/06/16 History Allergies Allergy/AdvReac Type Severity Reaction Status Date / Time No Known Allergies Allergy Verified 11/06/16 10:45 Physical Exam Vitals: Vital Signs Temp Pulse Pulse Resp BP BP Pulse Ox 11/07/16 08:00 98.7 F 85 16 133/78 94 L 11/07/16 04:00 97.8 F 87 17 132/82 93 L 11/07/16 00:00 98.9 F 97 16 119/76 96 11/06/16 20:00 99.3 F 93 17 102/59 94 L 11/06/16 16:00 90 16 107/67 92 L 11/06/16 13:40 98.1 F 92 16 108/70 11/06/16 12:55 98.5 F 93 18 104/62 95 Intake and Output 11/06/16 11/07/16 11/07/16 22:59 06:59 14:59 Intake Total 460 250 Output Total 820 400 Balance -360 -150 Intake: IV 250 Piperacillin-Tazobactam 3 50 .375 gm In Dextrose/Water 1 50ml.bag @ 12.5 mls/hr IVPB Q8HR ANJEL Rx#: [id number] Sodium Chloride 0.9% 1, 200 000 ml @ 20 mls/hr IV . Q24H ANJEL Rx#:[id number] Intake, IV Titration 200 Amount Sodium Chloride 0.9% 1, 200 000 ml @ 100 mls/hr IV . Q10H STA Rx#:[id number] Oral 260 Output: Urine 820 400 Other: Voiding Method Urinal Urinal # Voids 1 1 Weight 83.1 kg Physical Exam: Revealed a 51-year-old white male in no distress. HEENT:[Neck is supple.] [No neck masses.] [No thyromegaly.] [No JVD.] Chest: [Clear throughout, no crackles, no rhonchi, no wheezes.] Cardiac Exam: [Normal S1 and S2, no S3 gallop, no murmur.] Abdomen: [Soft, nontender, no megaly, no rebound, no guarding, normal bowel sounds.] Extremities: [No clubbing, no edema, no cyanosis.] Neurological Exam: [No focal neurologic deficit.] Results - Laboratory Findings CBC and BMP: 11/07/16 06:20 11/07/16 06:20 PT/INR, D-dimer PT 10.5 sec (9.0-12.0) 11/06/16 09:52 INR 1.0 (<1.1) 11/06/16 09:52 D-Dimer 15.04 mg/L FEU (<0.60) H 11/06/16 09:52 Abnormal lab findings: Abnormal Labs 11/06/16 11/06/16 11/06/16 16:42 18:00 21:08 WBC Neutrophils # Monocytes # BUN Glucose POC Glucose (mg/dL) 172 H 143 H Total Creatine Kinase 314 H CK-MB (CK-2) 5.4 H* Troponin I 0.999 H* 11/07/16 11/07/16 11/07/16 00:00 06:20 06:20 WBC 16.0 H Neutrophils # 10.4 H Monocytes # 1.1 H BUN 8 L Glucose 164 H POC Glucose (mg/dL) Total Creatine Kinase 393 H CK-MB (CK-2) 5.9 H* Troponin I 1.010 H* 11/07/16 06:23 WBC Neutrophils # Monocytes # BUN Glucose POC Glucose (mg/dL) 168 H Total Creatine Kinase CK-MB (CK-2) Troponin I - Diagnostic Findings Chest x-ray: image reviewed (Significant improvement of his interstitial edema and pulmonary vasculature prominence overnight.) Assessment and Plan Plan: Impression: 1 acute non-ST elevation myocardial infarction 2 acute pulmonary edema, resolved 3 acute new onset grand mal seizure, remote history of head trauma as a child. But no history of documented seizures in the past. Patient was loaded with Dilantin in the ER, and a neurological consultation was initiated. 4 history of documented coronary artery disease and previous stent placement 5 history of type 2 diabetes 6 history of dyslipidemia. 7 history of tobacco dependence syndrome, counseled regarding smoking cessation. Recommendation: Continue present treatment plan, continue seizure precautions, GI and DVT prophylaxis, diuretics, patient is scheduled to have cardiac catheterization, and we'll continue to follow. Discussed the patient's condition with the seismographer on the case. Time with Patient: Greater than 30
[2016-11-07 10:48] LABS: INR 1.1 (<1.1)
[2016-11-07 10:49] LABS: Partial Thromboplastin Time 23.8 sec (22.0-30.0); Prothrombin Time 11.2 sec (9.0-12.0)
[2016-11-07] MEDS ORDERED: VERAPAMIL 2.5 MG/ML 2 ML AMP ONE (11:46)
[2016-11-07] MEDS ORDERED: ASPIRIN 325 MG TAB ONE (11:47)
[2016-11-07] MEDS ORDERED: LIDOCAINE 2% INJ 20 MG/ML (20 ML MDV) ONE (11:47)
[2016-11-07] MEDS ORDERED: HEPARIN SODIUM 1,000 UNIT/ML VIAL ONE (11:54)
[2016-11-07] MEDS ORDERED: MIDAZOLAM 2 MG/2 ML VIAL ONE ×2 (11:54→12:48)
[2016-11-07] MEDS ORDERED: ASPIRIN 325 MG TAB PO ONE (11:58)
[2016-11-07] MEDS ORDERED: SODIUM CHLORIDE 0.9% 250 ML IV ONE (11:59)
[2016-11-07] MEDS ORDERED: IV FLUID CONTINUATION 1,000 ML IV ONE (11:59)
[2016-11-07] MEDS ORDERED: LIDOCAINE 2% INJ 20 MG/ML SQ ONE ×2 (12:22→12:24)
[2016-11-07] MEDS ORDERED: METOPROLOL TARTRATE 5 MG/5 ML VIAL IVP ONE ×2 (12:23→12:25)
[2016-11-07] MEDS: MIDAZOLAM 2 MG/2 ML VIAL IV ONE ×5 (12:24→13:26)
[2016-11-07] MEDS ORDERED: VERAPAMIL SYRINGE (5 MG/10 ML) INTRAARTER ONE (12:24)
[2016-11-07] MEDS: VERAPAMIL SYRINGE (5 MG/10 ML) INTRAARTER ONE ×2 (12:25→13:34)
[2016-11-07] MEDS ORDERED: BIVALIRUDIN BOLUS 250 MG/50 ML IV ONE (12:35)
[2016-11-07] MEDS ORDERED: BIVALIRUDIN 250 MG in SODIUM CHLORIDE 0.9% 50 ML IV ONE (12:36)
[2016-11-07] MEDS ORDERED: IOHEXOL 350 MG/ML 125ML BOTTLE INJ ONE (13:31)
[2016-11-07] MEDS ORDERED: ATROPINE SULFATE 0.1 MG/ML 10ML SYRINGE IV PRN (13:41)
[2016-11-07] MEDS ORDERED: RX INFO: IV CONTRAST WAS GIVEN 1 EACH MISC MISCELLANE PRN (13:41)
[2016-11-07] MEDS ORDERED: MAG HYDROX/AL HYDROX/SIMETH 30 ML CUP PO PRN (13:41)
[2016-11-07] MEDS ORDERED: SODIUM CHLORIDE 0.9% 1,000 ML IV SCH (13:45)
--- NOTE | 2016-11-07 14:28 | CC ---
DATE OF SERVICE: November 07, 2016. Performing physician: Gurmeet Garcia, signal engineer. PROCEDURE PERFORMED: 1. Selective right and left coronary angiogram. 2. Left heart catheterization. 3. Left ventriculography. 4. Attempted balloon angioplasty of the LAD. INDICATION: This is a pleasant 51-year-old gentleman with a past medical history significant for coronary artery disease and prior stenting of the LAD in 2003 was admitted to the hospital with seizure episode. He was ruled in for acute [id number] myocardial infarction with significantly abnormal troponin and EKG changes consistent with ischemia. He was brought today to undergo a heart catheterization. Approach: Right radial artery. COMPLICATIONS: None. Level of sedation: Moderate with sedation length of 58 minutes. PROCEDURE DESCRIPTION: After obtaining an informed consent, the patient was brought to the cardiac slab conditioner supervisor. Right radial artery was cannulated using micropuncture technique. The micropuncture wire passed easily, then I placed a 6 Bengali sheath in the right radial artery. Subsequently I gave the patient 2 mg of verapamil IA. I did not give any heparin because I was planning to do an intervention. I did selective right and left coronary angiogram using JR4 catheter for the right coronary artery and JL 3.5 guiding catheter for the left coronary system. I did left heart catheterization and then LV gram using a 5 Bengali pigtail catheter. After that, I did attempt balloon angioplasty of the LAD. Please see separate paragraph for that. SELECTIVE CORONARY ANGIOGRAM: 1. The right coronary artery is a large-caliber vessel and it is a dominant vessel. The proximal RCA appeared to have mild disease only. The mid RCA appeared to have intermediate disease in the range of 50%. The RCA distally appeared to be diffusely diseased up to about 70% to 80%. It bifurcates into PDA and PLV branches. The PDA and PLV branches are angiographically normal. Left to right collaterals filling the distal LAD was seen during injecting the RCA. 2. The left main has mild disease only, it bifurcates into the left circumflex and left anterior descending artery. 3. The left circumflex is a large-caliber vessel and it is a nondominant vessel. The proximal circumflex appeared to have mild disease only. The mid circumflex is normal and gives rise into a large first OM branch, which has mild disease in the proximal portion. Then the circ continues after that as a small-caliber vessel in the AV groove. 4. The LAD, the ostial LAD appeared to have a lesion in the range of 70%. The very proximal LAD is occluded with in-stent occlusion. HEMODYNAMICS: The left ventricular end-diastolic pressure was 20 mmHg and no gradient was seen across the aortic valve. Left ventriculography was performed in the RIVERA projection and using a power injection. The left ventricular systolic function is severely impaired with an ejection fraction of about 20% to 25% with dilated LV and anterior, apical, and inferoapical hypokinesia. The only part of the heart roberto seems to be the basal inferior wall. PCI of the LAD: Anticoagulation was initiated using Angiomax. Subsequently, I did engage the LAD using JL 3.5 guiding catheter. I an attempted crossing the total occlusion of the proximal LAD using a whisper wire, choice PT wire, a run-through wire, filter XT wire, and ( ) wire and I was unable to cross that. Occlusion, seems to be chronic more than acute. At that point, the procedure was completed. CONCLUSION: 1. Severe two vessel coronary artery disease. 2. Severe disease involving the distal dominant right coronary artery. 3. 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 4. Mild disease involving the left circumflex coronary artery. 5. Severely impaired left ventricular function with an ejection fraction of 20% to 25%. POSTPROCEDURE MANAGEMENT: 1. At this point I would maximize medical treatment. 2. ( ) study as an outpatient using either MRI or thallium will be performed to assess the ( ) of the anterior wall. 3. Will continue following up with the patient.
[2016-11-07] MEDS ORDERED: PHENYTOIN SODIUM EXTENDED 100 MG CAP PO STA (15:23)
[2016-11-07 17:20] LABS: Glucose,Whole Blood 181 mg/dL (75-99)
[2016-11-07] MEDS: HEPARIN SODIUM,PORCINE/D5W PMX 25,000 UNIT in DEXTROSE/WATER 1 500ML.BAG IV SCH ×2 (17:23→21:31)
--- NOTE | 2016-11-07 17:32 | ECHOF ---
Referral Reason:r/o chf MEASUREMENTS -------- HEIGHT: 177.8 cm WEIGHT: 86.2 kg BP: 137/86 RVIDd: 3.3 cm (< 3.3) IVSd: 1.5 cm (0.6 - 1.1) LVIDd: 5.5 cm (3.9 - 5.3) LVPWd: 1.2 cm (0.6 - 1.1) IVSs: 1.7 cm LVIDs: 4.9 cm LVPWs: 1.2 cm LA Diam: 3.8 cm (2.7 - 3.8) LAESV Index (A-L): 25.40 ml/m Ao Diam: 3.7 cm (2.0 - 3.7) AV Cusp: 2.0 cm (1.5 - 2.6) MV EXCURSION: 20.477 mm (> 18.000) MV EF SLOPE: 145 mm/s (70 - 150) EPSS: 0.8 cm MV E Lupillo: 0.84 m/s MV DecT: 195 ms MV A Lpuillo: 0.69 m/s MV E/A Ratio: 1.23 RAP: 5.00 mmHg RVSP: 37.75 mmHg FINDINGS -------- This was a technically good study. The left ventricular size is normal. There is moderate concentric left ventricular hypertrophy. Overall left ventricular systolic function is severely impaired with, an EF between 25 - 30 %. The right ventricle is mildly enlarged. Normal LA size by volume 22+/-6 ml/m2. The right atrium is normal in size. Aortic valve is trileaflet and is mildly thickened. There is trace to mild mitral regurgitation. Mild tricuspid regurgitation present. There is mild pulmonary hypertension. Trace/mild (physiologic) pulmonic regurgitation. The aortic root is dilated measuring 3.7cm. Normal inferior vena cava with normal inspiratory collapse consistent with estimated right atrial pressure of 5 mmHg. The pericardium is normal. CONCLUSIONS -------- 1. This was a technically good study. 2. There is mild pulmonary hypertension. 3. Trace/mild (physiologic) pulmonic regurgitation. 4. The aortic root is dilated measuring 3.7cm. 5. The pericardium is normal. 6. The left ventricular size is normal. 7. There is moderate concentric left ventricular hypertrophy. 8. Overall left ventricular systolic function is severely impaired with, an EF between 25 - 30 %. 9. The right ventricle is mildly enlarged. 10. Normal LA size by volume 22+/-6 ml/m2. 11. Aortic valve is trileaflet and is mildly thickened. 12. There is trace to mild mitral regurgitation. 13. Mild tricuspid regurgitation present. MANAGER PRODUCTION: Ainsley Brennan RDCS
[2016-11-07] MEDS: SODIUM CHLORIDE 0.9% 1,000 ML IV SCH (19:27)
[2016-11-07] MEDS ORDERED: MAGNESIUM HYDROXIDE 2,400 MG/10 ML CUP PO PRN (19:46)
[2016-11-07] MEDS: METOPROLOL TARTRATE 12.5 MG TAB PO SCH (20:19)
[2016-11-07] MEDS: ATORVASTATIN 80 MG TAB PO SCH (20:20)
[2016-11-07] MEDS ORDERED: MELATONIN 5 MG TABLET PO SCH (21:00)
[2016-11-07 21:09] LABS: Glucose,Whole Blood 139 mg/dL (75-99)
[2016-11-07] MEDS: ZOLPIDEM 5 MG TAB PO PRN (22:11)
[2016-11-08 03:33] LABS: Basophils # (A) 0.1 k/uL (0-0.2); Basophils % (A) 1 %; CH 30.6; CHCM 33.5; Eosinophils # (A) 0.2 k/uL (0-0.7); Eosinophils % (A) 2 %; HCT 43.3 % (39.0-53.0); HDW 2.24; HGB 14.5 gm/dL (13.0-17.5); Luc % (Auto) 2; Lymphocytes # (A) 2.8 k/uL (1.0-4.8); Lymphocytes % (A) 21 %; MCH 30.7 pg (25.0-35.0); MCHC 33.5 g/dL (31.0-37.0); MCV 91.8 fL (80.0-100.0); Monocytes # (A) 0.9 k/uL (0-1.0); Monocytes % (A) 7 %; Neutrophils # (A) 8.6 k/uL (1.3-7.7); Neutrophils % (A) 67 %; RBC 4.72 m/uL (4.30-5.90); RDW 13.3 % (11.5-15.5); WBC 12.9 k/uL (3.8-10.6); WBC (Perox) 12.36
[2016-11-08 03:52] LABS: ALT 39 U/L (21-72); AST 55 U/L (17-59); Alkaline Phosphatase 86 U/L (38-126); Anion Gap 9 mmol/L; Blood Urea Nitrogen 10 mg/dL (9-20); Calcium 9.3 mg/dL (8.4-10.2); Carbon Dioxide 26 mmol/L (22-30); Chloride 103 mmol/L (98-107); Glucose 184 mg/dL (74-99); Non-African American GFR(MDRD) >60 (>60 ml/min/1.73 sqM); Sodium 138 mmol/L (137-145); Total Bilirubin 0.9 mg/dL (0.2-1.3)
[2016-11-08 06:50] LABS: Glucose,Whole Blood 192 mg/dL (75-99)
[2016-11-08] MEDS: INSULIN LISPRO (humaLOG) 300 UNIT/3 ML VIAL SQ SCH ×4 (06:52→20:58)
[2016-11-08] MEDS: NICOTINE 21MG/24HR PATCH TRANSDERM SCH (07:49)
[2016-11-08] MEDS: ASPIRIN 325 MG TAB PO SCH (07:49)
[2016-11-08] MEDS: METOPROLOL TARTRATE 12.5 MG TAB PO SCH ×3 (07:49→21:59)
[2016-11-08] MEDS: PHENYTOIN SODIUM EXTENDED 100 MG CAP PO SCH ×4 (07:50→21:58)
[2016-11-08] MEDS: FUROSEMIDE 10 MG/ML 2 ML VIAL IV SCH (07:57)
[2016-11-08 11:32] LABS: Glucose,Whole Blood 173 mg/dL (75-99)
--- NOTE | 2016-11-08 11:37 | MR ---
EXAMINATION TYPE: MR brain wo con DATE OF EXAM: 11/08/2016 11:17 AM COMPARISON: CT brain 11/06/2016 HISTORY: New onset seizure, hx multiple strokes T1-weighted sagittal, T2, FLAIR, and diffusion axial, and T2 coronal coronal views of the brain are s ubmitted. There are 2 areas of abnormal signal on diffusion imaging within the right temporal lobe with the lar gest measuring 9 mm. Suspect additional area within the right occipital lobe and additional punctate third area within the right temporal lobe on axial image 13. Mild to moderate generalized degenerative change. Abnormal signal seen within the basal ganglia and e xternal capsule on the right likely in the basis of remote ischemia. There are multiple areas of abno rmal signal seen scattered throughout the white matter bilaterally with findings suggestive of remote ischemic change. Area of encephalomalacia and remote ischemia involving the right occipital lobe. Craniocervical junction maintained. Sella turcica has a normal appearance. No cerebellopontine angle mass. Changes of chronic sinusitis noted. IMPRESSION: 1. Multiple small less than 1 cm areas of acute ischemia within the right temporal lobe and a single subcentimeter area within the right occipital lobe with no significant mass effect. Report called to the patient's nurse. 2. Degenerative and remote ischemic change.
[2016-11-08] MEDS: CLOPIDOGREL 75 MG TAB PO SCH (11:39)
[2016-11-08] MEDS: SODIUM CHLORIDE 0.9% 1,000 ML IV SCH (11:48)
--- NOTE | 2016-11-08 13:10 | P.PN ---
Subjective Patient is doing well today. He denies any chest pain. No seizure activity since admission. No events overnight. Objective - Vital Signs Vital signs: Vital Signs Temp 97.1 F L 11/08/16 07:47 Pulse 103 H 11/08/16 11:37 Resp 17 11/08/16 11:37 BP 121/93 11/08/16 11:37 Pulse Ox 95 11/08/16 11:37 Intake & Output 11/07/16 11/08/16 11/08/16 18:59 06:59 18:59 Intake Total 162.39 535.26 200 Output Total 400 Balance -237.61 535.26 200 Weight 81.7 kg Intake: IV 162.39 400 80 Heparin Sodium,Porcine/ 200 D5w Pmx 25,000 unit In Dextrose/Water 1 500ml. bag @ 12 UNITS/KG/HR 19. 94 mls/hr IV .Q24H ANJ[facility] Rx #:[id number] Sodium Chloride 0.9% 1, 200 80 000 ml @ 20 mls/hr IV . Q24H ANJEL Rx#:[id number] Intake, IV Titration 135.26 Amount Heparin Sodium,Porcine/ 135.26 D5w Pmx 25,000 unit In Dextrose/Water 1 500ml. bag @ 12 UNITS/KG/HR 19. 94 mls/hr IV .Q24H ANJEL Rx #:[id number] Oral 120 Output: Urine 400 Other: Voiding Method Urinal Toilet Toilet # Voids 1 1 - Exam General: The patient is awake and alert, in no distress Eye: there is normal conjunctiva bilaterally. Neck: The neck is supple, there is no JVD. Cardiovascular: Normal S1-S2, no S3-S4, no murmurs. Respiratory: Lungs clear to auscultation bilaterally Gastrointestinal: Abdomen is soft, nontender Musculoskeletal: There is no pedal edema. Neurological:. Speech is normal. Skin: Skin is warm and dry - Labs CBC & Chem 7: 11/08/16 03:04 11/08/16 03:04 Labs: Abnormal Lab Results - Last 24 Hours (Table) 11/07/16 11/07/16 11/07/16 Range/Units 15:46 16:52 20:53 WBC (3.8-10.6) k/uL Neutrophils # (1.3-7.7) k/uL APTT 34.3 H (22.0-30.0) sec Creatinine (0.66-1.25) mg/dL Glucose (74-99) mg/dL POC Glucose (mg/dL) 181 H 139 H (75-99) mg/dL 11/08/16 11/08/16 11/08/16 Range/Units 03:04 03:04 06:13 WBC 12.9 H (3.8-10.6) k/uL Neutrophils # 8.6 H (1.3-7.7) k/uL APTT (22.0-30.0) sec Creatinine 0.60 L (0.66-1.25) mg/dL Glucose 184 H (74-99) mg/dL POC Glucose (mg/dL) 192 H (75-99) mg/dL 11/08/16 Range/Units 11:30 WBC (3.8-10.6) k/uL Neutrophils # (1.3-7.7) k/uL APTT (22.0-30.0) sec Creatinine (0.66-1.25) mg/dL Glucose (74-99) mg/dL POC Glucose (mg/dL) 173 H (75-99) mg/dL Assessment and Plan Plan: 1. Non-ST elevation [place]: patient was seen and evaluated by cardiology. He underwent left heart catheterization Showing diffuse coronary artery disease. No intervention attempted. Plan to maximize medical management. Follow-up with cardiology as an outpatient. 2. New onset seizure: Started on Dilantin currently at 100 mg 3 times a day. Levels remained below therapeutic range. He was seen and evaluated by neurology. MRI of the brain showed questionable area of acute ischemia involving the right temporal lobe with chronic ischemic changes as noted in the report. Carotid Doppler showed no hemodynamically significant stenosis. Currently on aspirin and Plavix. Risk modification underlying medical condition discussed with the patient. 3. Type 2 diabetes mellitus: Relatively well-controlled. A1c 7.0. On metformin at home. 4. Hyperlipidemia 5. Tobacco abuse: Counseled to quit during this admission. Currently on nicotine patch. 6. Ischemic cardiomyopathy with impaired systolic dysfunction and ejection fraction of 25%: I would switch Lasix to oral We will continue supportive care otherwise. Telemetry monitoring. Repeat lab work in the morning. Patient will be updated about his clinical condition.
--- NOTE | 2016-11-08 13:25 | CDI ---
In responding to this query, please exercise your independent professional judgment. The [facility] Coding Staff and Clinical Documentation Specialists appreciate your assistance in clarifying documentation, maintaining compliance with coding guidelines, accurately documenting patients condition and capturing severity of illness. The fact that a question is asked does not imply that any particular answer is desired or expected. Communication forms are a method of clarifying documentation and are not made part of the Legal Health Record. Thank you in advance for your clarification. Last Revision, September 2016 Rose Jacobson [address] [facility] [place] [address] Documentation Clarification Form Date: 11/08/2016 12:52:00 PM From: Sharon Jiang RN, CCDS Admit Date: 11/06/2016 12:23:00 PM Patient Name: John Da Silva Visit Number: [id number] Dr. Ambrose History/Risk Factors: A Nstemi this admission, smoking, DM2, hyperlipidemia Clinical Indicators: VS/Pulse OX: Temp 98, hr RR 18, B/P 137/86, Spo2 87% ra BNP: 71 11/06/16 Echocardiogram Results: EF 25-30% 11/06 Chest X Ray: correlate for pulmonary edema Treatment: Consults: Cardiology Lasix 20mg IVP Q 12 hrs In your professional opinion, can you please clarify the acuity and type of CHF if known? Systolic Heart Failure: Acute Chronic Acute on Chronic Diastolic Heart Failure: Acute Chronic Acute on Chronic Systolic & Diastolic Heart Failure: Acute Chronic Acute on Chronic Unable to determine Other, please specify Please document in your progress notes and discharge summary in order to capture severity of illness and risk of mortality. Include clinical findings that support your diagnosis. FYI: Press F11 to launch patient chart. Place X here if this finding has no clinical significance, is not applicable or if you are not able to provide any additional documentation. MIGUELITO
[2016-11-08] MEDS: FUROSEMIDE 20 MG TAB PO SCH (15:48)
[2016-11-08 16:59] LABS: Glucose,Whole Blood 263 mg/dL (75-99)
--- NOTE | 2016-11-08 20:28 | PN ---
This is a patient who was seen by my partner yesterday for an acute ibs-UE-ybntgqv-elevation myocardial infarction and pulmonary edema, which has improved. He also has a history of new-onset seizure disorder. Anyway, the patient does have a history also of hyperlipidemia, diabetes, CAD with previous stent placement, and chronic tobacco use. He was seen by Dr. Barnett yesterday. He is doing reasonably well today. Vital signs are relatively stable. No major complaints today. His shortness of breath has improved. Temperature 97.1, heart rate 90, respiratory rate 17, blood pressure 121/88. Room-air saturation 95%. He appears in no acute distress. HEENT examination is grossly unremarkable. Mucous membranes are moist. No oral lesions. NECK: Supple. Full range of motion. No adenopathy or thyromegaly. Cardiovascular examination reveals regular rhythm and rate. S1, S2 normal. No S3, S4. No murmur. Lungs reveal a few scattered crackles. No wheezes or rhonchi. ABDOMEN: Soft. Bowel sounds are heard. Extremities are intact. No cyanosis, clubbing or edema. Skin is without rash. Neurological examination is nonfocal. Labs are reviewed. White count 12.9. Hemoglobin, hematocrit and platelet count are all normal. Electrolytes are pretty much normal. Chest x-ray from November 07 shows improved fluid overload. Medications are reviewed. ASSESSMENT: 1. Acute otf-VI-msxdhpa-elevation myocardial infarction. 2. Acute pulmonary edema/interstitial edema, resolved. 3. New-onset seizure. 4. Coronary artery disease with previous stent placement. 5. History of diabetes. 6. Hyperlipidemia. 7. History of tobacco dependence. PLAN: Will continue to follow. No additional recommendations are made. Prognosis is guarded.
[2016-11-08 20:42] LABS: Glucose,Whole Blood 279 mg/dL (75-99)
[2016-11-08] MEDS: MELATONIN 5 MG TABLET PO SCH ×2 (20:57→21:58)
[2016-11-08] MEDS: ATORVASTATIN 80 MG TAB PO SCH ×2 (20:58→21:58)
[2016-11-08] MEDS ORDERED: METOPROLOL TARTRATE 12.5 MG TAB PO SCH (21:45)
--- NOTE | 2016-11-08 21:49 | P.PN ---
Subjective Principal diagnosis: Acute coronary event This is a pleasant 51-year-old gentleman with a past medical history significant for CAD and prior stenting of the LAD according to him was performed in 2003 with unknown details at this point, and the patient doesn't follow up with any training administrator, as well as significant history of smoking, was brought to the hospital after he had seizure episode at home. The patient was at home with his when he suddenly lost his consciousness. He was brought to the emergency room by ambulance. In the ER he was in acute respiratory distress and he felt better after he was given Lasix IV. The EKG showed sinus rhythm with ST elevation in aVR and diffuse ST segment depression finding consistent and concerning for proximal LAD disease. The cardiac enzymes were checked and came in to be abnormal and consistent with acute CT. The patient underwent a heart catheterization which showed severe 2 vessel CAD. He was found to have severe disease involving the distal RCA as well as chronic total occlusion of the mid LAD which seems to be in-stent occlusion and the LAD fills by collateral from the right coronary artery. The echocardiogram showed impaired LV function with an ejection fraction of 20- 25%. At this point I recommended maximize medical treatment. The patient currently on metoprolol but he continues to be tachycardic and I would increase the dose to 25 mg by mouth twice a day. He is on dual antiplatelet therapy which we will continue. I am going to add small dose of lisinopril as well as Aldactone to the current medical treatment. I recommended keeping the patient for additional 24-hour to 48 hours and monitor him for any arrhythmia which could be responsible for his presentation. Objective - Vital Signs Vital signs: Vital Signs Temp 97.3 F L 11/08/16 20:52 Pulse 103 H 11/08/16 20:52 Resp 16 11/08/16 20:52 BP 124/73 11/08/16 20:52 Pulse Ox 95 11/08/16 20:52 Intake & Output 11/08/16 11/08/16 11/09/16 06:59 18:59 06:59 Intake Total 535.26 560 Balance 535.26 560 Weight 81.7 kg Intake: IV 400 80 Heparin Sodium,Porcine/ 200 D5w Pmx 25,000 unit In Dextrose/Water 1 500ml. bag @ 12 UNITS/KG/HR 19. 94 mls/hr IV .Q24H ANJEL Rx #:[id number] Sodium Chloride 0.9% 1, 200 80 000 ml @ 20 mls/hr IV . Q24H ANJEL Rx#:[id number] Intake, IV Titration 135.26 Amount Heparin Sodium,Porcine/ 135.26 D5w Pmx 25,000 unit In Dextrose/Water 1 500ml. bag @ 12 UNITS/KG/HR 19. 94 mls/hr IV .Q24H ANJEL Rx #:[id number] Oral 480 Other: Voiding Method Toilet Toilet # Voids 1 - Constitutional General appearance: Present: no acute distress - Respiratory Respiratory: bilateral: CTA - Cardiovascular Rhythm: regular Heart sounds: normal: S1, S2 - Labs CBC & Chem 7: 11/08/16 03:04 11/08/16 03:04 Labs: Abnormal Lab Results - Last 24 Hours (Table) 11/08/16 11/08/16 11/08/16 Range/Units 03:04 03:04 06:13 WBC 12.9 H (3.8-10.6) k/uL Neutrophils # 8.6 H (1.3-7.7) k/uL Creatinine 0.60 L (0.66-1.25) mg/dL Glucose 184 H (74-99) mg/dL POC Glucose (mg/dL) 192 H (75-99) mg/dL 11/08/16 11/08/16 11/08/16 Range/Units 11:30 16:48 20:33 WBC (3.8-10.6) k/uL Neutrophils # (1.3-7.7) k/uL Creatinine (0.66-1.25) mg/dL Glucose (74-99) mg/dL POC Glucose (mg/dL) 173 H 263 H 279 H (75-99) mg/dL Assessment and Plan Plan: Assessment #1 acute non-ST elevation myocardial infarction #2 severe underlying CAD as described above #3 severe ischemic cardiomyopathy #4 noncompliance with medication #5 significant history of smoking Plan #1 maximize medical treatment as described above #2 follow-up with the patient
[2016-11-08] MEDS: METOPROLOL TARTRATE 25 MG TAB PO SCH (21:58)
[2016-11-08] MEDS: ZOLPIDEM 5 MG TAB PO PRN (22:28)
[2016-11-09 06:29] LABS: Glucose,Whole Blood 204 mg/dL (75-99)
[2016-11-09] MEDS: INSULIN LISPRO (humaLOG) 300 UNIT/3 ML VIAL SQ SCH ×4 (06:38→22:11)
[2016-11-09 07:40] LABS: Basophils # (A) 0.1 k/uL (0-0.2); Basophils % (A) 0 %; CHCM 33.9; Eosinophils # (A) 0.2 k/uL (0-0.7); Eosinophils % (A) 2 %; HCT 43.6 % (39.0-53.0); HDW 2.17; HGB 14.2 gm/dL (13.0-17.5); Luc # (Auto) 0.24; Luc % (Auto) 2; Lymphocytes # (A) 2.1 k/uL (1.0-4.8); Lymphocytes % (A) 17 %; MCHC 32.6 g/dL (31.0-37.0); MCV 91.9 fL (80.0-100.0); Mean Platelet Volume 8.1; Monocytes # (A) 0.8 k/uL (0-1.0); Monocytes % (A) 6 %; Neutrophils # (A) 8.5 k/uL (1.3-7.7); Neutrophils % (A) 72 %; RBC 4.75 m/uL (4.30-5.90); RDW 13.3 % (11.5-15.5); WBC 11.8 k/uL (3.8-10.6); WBC (Perox) 12.31
[2016-11-09 07:47] LABS: Anion Gap 9 mmol/L; Blood Urea Nitrogen 15 mg/dL (9-20); Calcium 9.5 mg/dL (8.4-10.2); Carbon Dioxide 27 mmol/L (22-30); Chloride 104 mmol/L (98-107); Glucose 190 mg/dL (74-99); Non-African American GFR(MDRD) >60 (>60 ml/min/1.73 sqM); Potassium 4.1 mmol/L (3.5-5.1); Sodium 140 mmol/L (137-145)
[2016-11-09] MEDS: FUROSEMIDE 20 MG TAB PO SCH ×2 (09:59→16:44)
[2016-11-09] MEDS: NICOTINE 21MG/24HR PATCH TRANSDERM SCH (09:59)
[2016-11-09] MEDS: PHENYTOIN SODIUM EXTENDED 100 MG CAP PO SCH ×3 (09:59→22:11)
[2016-11-09] MEDS: METOPROLOL TARTRATE 25 MG TAB PO SCH ×2 (10:00→22:11)
[2016-11-09] MEDS: CLOPIDOGREL 75 MG TAB PO SCH (10:01)
[2016-11-09] MEDS: ASPIRIN 325 MG TAB PO SCH (10:01)
[2016-11-09] MEDS: SPIRONOLACTONE 25 MG TAB PO SCH (10:01)
[2016-11-09 11:49] LABS: Glucose,Whole Blood 193 mg/dL (75-99)
--- NOTE | 2016-11-09 11:59 | P.PN ---
Subjective Principal diagnosis: Acute coronary event This is a pleasant 51-year-old gentleman with a past medical history significant for CAD and prior stenting of the LAD according to him was performed in 2003 with unknown details at this point, and the patient doesn't follow up with any association executive, as well as significant history of smoking, was brought to the hospital after he had seizure episode at home. The patient was at home with his when he suddenly lost his consciousness. He was brought to the emergency room by ambulance. In the ER he was in acute respiratory distress and he felt better after he was given Lasix IV. The EKG showed sinus rhythm with ST elevation in aVR and diffuse ST segment depression finding consistent and concerning for proximal LAD disease. The cardiac enzymes were checked and came in to be abnormal and consistent with acute NC. The patient underwent a heart catheterization which showed severe 2 vessel CAD. He was found to have severe disease involving the distal RCA as well as chronic total occlusion of the mid LAD which seems to be in-stent occlusion and the LAD fills by collateral from the right coronary artery. The echocardiogram showed impaired LV function with an ejection fraction of 20- 25%. Currently the patient is on maximize medical treatment consistent of dual antiplatelet therapy, metoprolol, lisinopril, and Aldactone. I will repeat the echocardiogram tomorrow to see if there is any improvement in the LV function. The plan is to assess the viability of the anterior wall. Objective - Vital Signs Vital signs: Vital Signs Temp 96.8 F L 11/09/16 11:41 Pulse 80 11/09/16 11:41 Resp 16 11/09/16 11:41 BP 105/71 11/09/16 11:41 Pulse Ox 96 11/09/16 11:41 Intake & Output 11/08/16 11/09/16 11/09/16 18:59 06:59 18:59 Intake Total 560 0 Balance 560 0 Weight 81.1 kg Intake: IV 80 0 Sodium Chloride 0.9% 1, 80 0 000 ml @ 20 mls/hr IV . Q24H ANJEL Rx#:[id number] Oral 480 Other: Voiding Method Toilet Toilet Toilet # Voids 1 - Constitutional General appearance: Present: no acute distress - Respiratory Respiratory: bilateral: CTA - Cardiovascular Rhythm: regular Heart sounds: normal: S1, S2 - Labs CBC & Chem 7: 11/09/16 07:00 11/09/16 07:00 Labs: Abnormal Lab Results - Last 24 Hours (Table) 11/08/16 11/08/16 11/09/16 Range/Units 16:48 20:33 06:27 WBC (3.8-10.6) k/uL Neutrophils # (1.3-7.7) k/uL Glucose (74-99) mg/dL POC Glucose (mg/dL) 263 H 279 H 204 H (75-99) mg/dL 11/09/16 11/09/16 11/09/16 Range/Units 07:00 07:00 11:44 WBC 11.8 H (3.8-10.6) k/uL Neutrophils # 8.5 H (1.3-7.7) k/uL Glucose 190 H (74-99) mg/dL POC Glucose (mg/dL) 193 H (75-99) mg/dL Assessment and Plan Plan: Assessment #1 acute non-ST elevation myocardial infarction #2 severe underlying CAD as described above #3 severe ischemic cardiomyopathy #4 noncompliance with medication #5 significant history of smoking Plan #1 continue the current medical treatment #2 obtain an echocardiogram tomorrow to assess for improvement in the LV function #3 follow-up with the patient
[2016-11-09] MEDS: LISINOPRIL 2.5 MG TAB PO SCH (12:23)
--- NOTE | 2016-11-09 13:00 | P.PN ---
Subjective Principal diagnosis: New-onset seizures This is a 51-year-old white male with history of multiple medical problems including diabetes, hyperlipidemia, coronary artery disease and previous stent placement, patient was brought into the ER after an episode of tonic clonic contractions suggestive of a grand mal seizure. This was witnessed by his while he was sitting and watching television. Patient was brought into the ER, and he was post ictal on arrival. Chest x-ray on admission showed evidence of interstitial edema. No history to suggest aspiration. However that was definitely in the differential based on the chest x-ray. Last night I reviewed the chest x-ray, and I recommended diuretics, I also recommended empiric antibiotics in the form of Zosyn. Today's chest x-ray showed a significant and dramatic improvement over the last 12 hours. Hence I will go ahead and discontinue antibiotics, I recommended keeping diuretics on board, and I discussed his condition with the under sheriff who was consulted mostly because of his abnormal troponin and his underlying history of coronary artery disease. At the time of my evaluation today, patient is relatively asymptomatic, he would like to be discharged home, denies any cough no wheezing no shortness of breath no chest pain. EKG showed sinus rhythm with ST elevation in aVR and diffuse ST segment depression suggestive of proximal LAD disease. The patient is seen again today in follow-up 11/09/2016 on the selective care unit. Awake and alert in no acute distress. He is resting comfortably in bed. No oxygen required. Worsening shortness of breath, cough or congestion. He has not had any further seizure activity. MRI of the brain yesterday revealed multiple small less than 1 cm areas of acute ischemia within the right temporal lobe and a single subcentimeter area within the right occipital lobe with no significant mass effect. Neurology is on the case as well. Cardiac catheterization revealed severe two-vessel coronary artery disease involving the distal dominant right coronary artery and a chronic total occlusion in the proximal LAD with in-stent restenosis. He does have severely impaired left ventricular systolic function with estimated ejection fraction 20-25%. He was recommended maximum medical treatment. He may need a LifeVest. Objective - Vital Signs Vital signs: Vital Signs Temp 96.8 F L 11/09/16 11:41 Pulse 80 11/09/16 11:41 Resp 16 11/09/16 11:41 BP 105/71 11/09/16 11:41 Pulse Ox 96 11/09/16 11:41 Intake & Output 11/08/16 11/09/16 11/09/16 18:59 06:59 18:59 Intake Total 560 0 Balance 560 0 Weight 81.1 kg Intake: IV 80 0 Sodium Chloride 0.9% 1, 80 0 000 ml @ 20 mls/hr IV . Q24H ANJEL Rx#:[id number] Oral 480 Other: Voiding Method Toilet Toilet Toilet # Voids 1 - Exam GENERAL EXAM: Alert, active, comfortable in no apparent distress. HEAD: Normocephalic. EYES: Normal reaction of pupils, equal size. NOSE: Clear with pink turbinates. THROAT: No erythema or exudates. NECK: No masses, no JVD. CHEST: No chest wall deformity. LUNGS: Equal air entry with no crackles, wheeze, rhonchi or dullness. CVS: S1 and S2 normal with no audible mumurs, regular rhythm. ABDOMEN: No hepatosplenomegaly, normal bowel sounds, no guarding or rigidity. SPINE: No scoliosis or deformity SKIN: No rashes CENTRAL NERVOUS SYSTEM: No focal deficits, tone is normal in all 4 extremities. Extremities: There is no significant peripheral edema. No clubbing, no cyanosis. Peripheral pulses are intact. - Labs CBC & Chem 7: 11/09/16 07:00 11/09/16 07:00 Labs: Abnormal Lab Results - Last 24 Hours (Table) 11/08/16 11/08/16 11/09/16 Range/Units 16:48 20:33 06:27 WBC (3.8-10.6) k/uL Neutrophils # (1.3-7.7) k/uL Glucose (74-99) mg/dL POC Glucose (mg/dL) 263 H 279 H 204 H (75-99) mg/dL 11/09/16 11/09/16 11/09/16 Range/Units 07:00 07:00 11:44 WBC 11.8 H (3.8-10.6) k/uL Neutrophils # 8.5 H (1.3-7.7) k/uL Glucose 190 H (74-99) mg/dL POC Glucose (mg/dL) 193 H (75-99) mg/dL Assessment and Plan Plan: Impression: 1 acute non-ST elevation myocardial infarction status post cardiac catheterization revealing severe 2 vessel disease with plans for maximal medical therapy. 2 acute pulmonary edema, resolved. severely impaired left ventricular systolic function with estimated ejection fraction 20-25%. 3 acute new onset grand mal seizure, remote history of head trauma as a child. But no history of documented seizures in the past. Patient was loaded with Dilantin in the ER, and a neurological consultation was initiated. 4 history of documented coronary artery disease and previous stent placement 5 history of type 2 diabetes 6 history of dyslipidemia. 7 history of tobacco dependence syndrome, counseled regarding smoking cessation. Plan: The patient was seen and evaluated by Dr. Toscano. He is stable from the pulmonary and critical care standpoint. He has not had any further seizure activity. Cardiology is on the case regarding the coronary artery disease. Discharge planning is in place.
[2016-11-09] MEDS: HYDROcodone/APAP 5-325MG 1 EACH TAB PO PRN (14:21)
--- NOTE | 2016-11-09 15:38 | P.PN ---
Subjective Patient is doing well today. He denies any chest pain or shortness of breath. No events overnight. Objective - Vital Signs Vital signs: Vital Signs Temp 96.8 F L 11/09/16 11:41 Pulse 80 11/09/16 11:41 Resp 16 11/09/16 11:41 BP 105/71 11/09/16 11:41 Pulse Ox 96 11/09/16 11:41 Intake & Output 11/08/16 11/09/16 11/09/16 18:59 06:59 18:59 Intake Total 560 0 180 Balance 560 0 180 Weight 81.1 kg Intake: IV 80 0 Sodium Chloride 0.9% 1, 80 0 000 ml @ 20 mls/hr IV . Q24H ANJEL Rx#:[id number] Oral 480 180 Other: Voiding Method Toilet Toilet Toilet # Voids 1 3 # Bowel Movements 1 - Exam General: The patient is awake and alert, in no distress Eye: there is normal conjunctiva bilaterally. Neck: The neck is supple, there is no JVD. Cardiovascular: Normal S1-S2, no S3-S4, no murmurs. Respiratory: Lungs clear to auscultation bilaterally Gastrointestinal: Abdomen is soft, nontender Musculoskeletal: There is no pedal edema. Neurological:. Speech is normal. Skin: Skin is warm and dry - Labs CBC & Chem 7: 11/09/16 07:00 11/09/16 07:00 Labs: Abnormal Lab Results - Last 24 Hours (Table) 11/08/16 11/08/16 11/09/16 Range/Units 16:48 20:33 06:27 WBC (3.8-10.6) k/uL Neutrophils # (1.3-7.7) k/uL Glucose (74-99) mg/dL POC Glucose (mg/dL) 263 H 279 H 204 H (75-99) mg/dL 11/09/16 11/09/16 11/09/16 Range/Units 07:00 07:00 11:44 WBC 11.8 H (3.8-10.6) k/uL Neutrophils # 8.5 H (1.3-7.7) k/uL Glucose 190 H (74-99) mg/dL POC Glucose (mg/dL) 193 H (75-99) mg/dL Assessment and Plan Plan: 1. Non-ST elevation [place]: patient was seen and evaluated by cardiology. He underwent left heart catheterization Showing diffuse coronary artery disease. No intervention attempted. Plan to maximize medical management. Follow-up with cardiology as an outpatient. 2. New onset seizure: Started on Dilantin currently at 100 mg 3 times a day. Levels remained below therapeutic range. He was seen and evaluated by neurology. MRI of the brain showed questionable area of acute ischemia involving the right temporal lobe with chronic ischemic changes as noted in the report. Carotid Doppler showed no hemodynamically significant stenosis. Currently on aspirin and Plavix. Risk modification underlying medical condition discussed with the patient. Awaiting neurology follow-up 3. Type 2 diabetes mellitus: Relatively well-controlled. A1c 7.0. On metformin at home, currently on hold. Start glipizide 5 mg twice daily 4. Hyperlipidemia 5. Tobacco abuse: Counseled to quit during this admission. Currently on nicotine patch. 6. Ischemic cardiomyopathy with impaired systolic dysfunction and ejection fraction of 25%: Continue oral Lasix. Plan for LifeVest prior to discharge. Cardiology following. We will continue supportive care otherwise. Telemetry monitoring. Repeat lab work in the morning. Patient updated about his clinical condition.
[2016-11-09 16:46] LABS: Glucose,Whole Blood 183 mg/dL (75-99)
[2016-11-09] MEDS: glipiZIDE 5 MG TAB PO SCH (16:46)
--- NOTE | 2016-11-09 16:56 | CONS ---
DATE OF CONSULTATION: 11/09/2016 REASON FOR CONSULTATION: Left gluteal wound. HISTORY OF PRESENT ILLNESS: The patient is a 51-year-old male who was brought into the ER at [facility] on 11/06/2016 after apparently the patient did have a seizure activity while watching TV about an hour prior to presentation to hospital. Per EMS, the patient was noticed to have tonic-clonic type seizure. Subsequently, the patient has been admitted to the hospital and has been treated. The patient also noticed to her acute IL for which the pain did have a cardiac catheterization with evidence of diffuse disease and Cardiology recommending initiation of therapy. Also has been evaluated by Neurology. An MRI of the brain raised possibility possible CVA. The patient also has wound to his left gluteal area, which has been there for more than a few weeks now. The patient said it started like a small pimple that has been drained by the PCP and has been packing with iodoform for the last so many weeks. The patient said there were some cultures taken, although those there negative and currently not taking antibiotic therapy. The patient denies significant pain in that gluteal area. The patient denies having any chest pain or shortness of breath or cough. No high-grade fever. No abdominal pain and no diarrhea. RESPIRATORY SYSTEM: CONSTITUTIONAL: Positive for weakness and high-grade fever. EYES: No complaint. ENT: No complaint. RESPIRATORY: No complaint. CARDIOVASCULAR: As per HPI. GENITOURINARY: No complaint. GASTROINTESTINAL: No complaint. MUSCULOSKELETAL: No complaint. INTEGUMENTARY: As per HPI. PSYCHOLOGIC: No complaint. ENDOCRINE: No complaint. NEUROLOGICAL: As per HPI. PAST MEDICAL HISTORY: Hyperlipidemia, diabetes mellitus, coronary artery disease. PAST SURGICAL HISTORY: PTCA with stent placement. SOCIAL HISTORY: The patient is currently every day smoker. Often marijuana use. No drinking. FAMILY HISTORY: No pertinent findings were noticed. ALLERGIES: No known drug allergies. Medications currently include the patient is on [place], Maalox, aspirin, Lipitor, Plavix, Lasix, Humalog, Zestril, Ativan, Mylanta, Lopressor, Narcan, nicotine patch, Nitrostat, Dilantin, Aldactone and Ambien. On examination, blood pressure is 105/71 with a pulse of 80, temperature 96.8. He is 96% on room air. General description is a middle-age male lying in bed in no distress. No tachypnea or accessory muscle of respiration use. HEENT examination showed no pallor or scleral icterus. Oral mucous membrane is dry. NECK: Trachea central. There is no thyromegaly. LUNGS: Unlabored breathing. Clear to auscultation anteriorly. No wheeze or crackle. HEART: S1, S2. Regular rate and rhythm. ABDOMEN: Soft, no tenderness. EXTREMITIES: Examination of the left gluteal area where the patient did have wound. It is significantly deep, however, no slough tissue was noticed. No significant surrounding erythema or any duration and no drainage. NEUROLOGICAL: The patient is awake, alert, oriented x3. Mood and affect normal. LABS: Hemoglobin is 14.1, 11.8 with a BUN of 15, creatinine 0.68. DIAGNOSTIC IMPRESSION AND PLAN: Patient with left gluteal wound as well as possible surgical drainage of an abscess, clinically with no evidence of infection at this point and no evidence of any redness or swelling or drainage or foul smelling. PLAN: 1. Would recommend local wound care to be switched over to Aquacel Silver packing of the wound to be changed to q.48 hours. 2. If patient notices any new area of scab starts to come off, will elected to get the cultures done to see the type of infection as MRSA infection can be prevented with therapies. The patient instructed on personal hygiene. All his questions have been answered. Thank you for this consultation. We will follow this patient along with you. MIGUELITO
[2016-11-09] MEDS ORDERED: PHENYTOIN SODIUM INJ 700 MG in SODIUM CHLORIDE 0.9% 100 ML IVPB STA (19:40)
[2016-11-09] MEDS: SODIUM CHLORIDE 0.9% 1,000 ML IV SCH (19:56)
--- NOTE | 2016-11-09 19:57 | P.PN ---
Subjective This patient is a 51-year-old right-handed white male who has a history of multiple medical problems including history of diabetes mellitus, hyperlipidemia , severe coronary artery disease, and with stent placement, and new onset seizure. Patient was admitted to hospital after having what appeared to be a generalized seizure. He was at home sitting in a chair and suddenly became unresponsive and had shaking of his arms and legs. He was brought into the emergency room and subsequently transferred from [facility] to [facility] for further evaluation. He was loaded with Dilantin given the new onset of seizure activity. He underwent a computed tomography scan of the brain which did reveal some areas of possible ischemia. He was sent for MRI of the brain yesterday which reveals 2 areas of acute ischemia involving the right temporal and right occipital region. These both areas appeared to be possibly embolic in nature. We had recommended for cardiology to consider a WENDY procedure for this patient. He has undergone cardiac catheterization which revealed severe coronary artery disease. Cardiology is recommending medical management only. We reviewed the results of the MRI today with the patient. Patient is on Dilantin however his Dilantin level today subtherapeutic at 6.4. We have recommended to load him with IV bolus Dilantin and change his maintenance dose of Dilantin today to 200 mg by mouth twice a day. We will recheck a Dilantin level tomorrow morning. Patient once again advise of his need not to be driving for 6 months following a seizure. He apparently is in the process of deciding whether he will be able to return to work due to his general medical debility. Apparently he had a heart attack at age 39 and has a long history of severe coronary artery disease. He has not sought medical intervention until recently. We will continue close neurological follow-up for the patient. His overall prognosis at this time remains guarded. Objective - Vital Signs Vital signs: Vital Signs Temp 98.4 F 11/09/16 16:41 Pulse 89 11/09/16 16:41 Resp 20 11/09/16 16:41 BP 122/78 11/09/16 16:41 Pulse Ox 97 11/09/16 16:41 Intake & Output 11/09/16 11/09/16 11/10/16 06:59 18:59 06:59 Intake Total 0 402 Balance 0 402 Weight 81.1 kg Intake: IV 0 Sodium Chloride 0.9% 1, 0 000 ml @ 20 mls/hr IV . Q24H [facility] Rx#:[id number] Oral 402 Other: Voiding Method Toilet Toilet # Voids 1 3 # Bowel Movements 1 - Exam Physical examination: PHYSICAL EXAMINATION: Patient is resting comfortably in bed. VITAL SIGNS: Blood pressure is [122/78]. Heart rate is [89]. Respiration is [20] . Temperature is [98.4]. HEENT: Head is atraumatic, neck is supple, there were no carotid bruits. CHEST: Lungs are clear to auscultation and percussion. CARDIAC: S1, S2 normal rate and rhythm. There is no murmur. ABDOMEN: Soft and nontender. Bowel sounds are present. EXTREMITIES: There is no pedal edema. Peripheral pulses are present. Neurological examination: Patient has a nonfocal neurological examination today. - Labs CBC & Chem 7: 11/09/16 07:00 11/09/16 07:00 Labs: Abnormal Lab Results - Last 24 Hours (Table) 11/08/16 11/09/16 11/09/16 Range/Units 20:33 06:27 07:00 WBC 11.8 H (3.8-10.6) k/uL Neutrophils # 8.5 H (1.3-7.7) k/uL Glucose (74-99) mg/dL POC Glucose (mg/dL) 279 H 204 H (75-99) mg/dL 11/09/16 11/09/16 11/09/16 Range/Units 07:00 11:44 16:39 WBC (3.8-10.6) k/uL Neutrophils # (1.3-7.7) k/uL Glucose 190 H (74-99) mg/dL POC Glucose (mg/dL) 193 H 183 H (75-99) mg/dL Assessment and Plan (1) Acute right arterial ischemic stroke, MCA (middle cerebral artery) Status: Acute Code(s): I63.511 - CEREB INFRC D/T UNSP OCCLS OR STENOS OF RIGHT MID CEREB ART (2) New onset seizure Status: Acute Code(s): R56.9 - UNSPECIFIED CONVULSIONS Plan: This patient is a 51-year-old male admitted with new onset seizure and possible stroke. Patient underwent MRI of the brain yesterday which reveals 2 areas of acute ischemia involving the right temporal and right occipital lobe. The 2 areas appeared to be embolic in nature. We have recommended cardiology to consider possible WENDY procedure for this patient. He underwent cardiac catheterization which revealed severe coronary artery disease for which cardiology is recommending medical management. Patient is on Dilantin for seizure prophylaxis. His Dilantin level today is subtherapeutic at 6.4. We have made adjustments on his Dilantin level today and will recheck a level tomorrow morning. Patient is aware of the [place] driving law which states he cannot drive for 6 months following a seizure. His overall prognosis at this time remains very guarded. Nursing staff have been updated on all of his recent test results. They will notify cardiology tomorrow regarding possible WENDY procedure for the patient. His overall prognosis at this time remains guarded.
[2016-11-09 21:14] LABS: Glucose,Whole Blood 181 mg/dL (75-99)
[2016-11-09] MEDS: ATORVASTATIN 80 MG TAB PO SCH (22:11)
[2016-11-09] MEDS: MELATONIN 5 MG TABLET PO SCH (22:11)
[2016-11-10 06:34] LABS: Glucose,Whole Blood 218 mg/dL (75-99)
[2016-11-10] MEDS: glipiZIDE 5 MG TAB PO SCH ×2 (06:42→17:20)
[2016-11-10] MEDS: INSULIN LISPRO (humaLOG) 300 UNIT/3 ML VIAL SQ SCH ×4 (06:42→21:56)
[2016-11-10 06:43] LABS: Basophils # (A) 0.1 k/uL (0-0.2); Basophils % (A) 1 %; CH 30.9; CHCM 33.7; Eosinophils # (A) 0.3 k/uL (0-0.7); Eosinophils % (A) 3 %; HCT 44.5 % (39.0-53.0); HDW 2.17; HGB 14.5 gm/dL (13.0-17.5); Luc # (Auto) 0.36; Luc % (Auto) 3; Lymphocytes % (A) 24 %; MCHC 32.5 g/dL (31.0-37.0); MCV 92.3 fL (80.0-100.0); Mean Platelet Volume 8.3; Monocytes # (A) 0.9 k/uL (0-1.0); Monocytes % (A) 7 %; Neutrophils # (A) 7.9 k/uL (1.3-7.7); Neutrophils % (A) 63 %; RBC 4.82 m/uL (4.30-5.90); RDW 13.5 % (11.5-15.5); WBC 12.6 k/uL (3.8-10.6); WBC (Perox) 12.32
[2016-11-10 07:28] LABS: Anion Gap 10 mmol/L; Blood Urea Nitrogen 18 mg/dL (9-20); Calcium 9.5 mg/dL (8.4-10.2); Carbon Dioxide 25 mmol/L (22-30); Chloride 106 mmol/L (98-107); Glucose 168 mg/dL (74-99); Non-African American GFR(MDRD) >60 (>60 ml/min/1.73 sqM); Potassium 4.4 mmol/L (3.5-5.1); Sodium 141 mmol/L (137-145)
[2016-11-10] MEDS: CLOPIDOGREL 75 MG TAB PO SCH (07:58)
[2016-11-10] MEDS: NICOTINE 21MG/24HR PATCH TRANSDERM SCH (07:58)
[2016-11-10] MEDS: ASPIRIN 325 MG TAB PO SCH (07:58)
[2016-11-10] MEDS: PHENYTOIN SODIUM EXTENDED 100 MG CAP PO SCH ×2 (07:58→21:56)
[2016-11-10] MEDS: SPIRONOLACTONE 25 MG TAB PO SCH (07:59)
[2016-11-10] MEDS: METOPROLOL TARTRATE 25 MG TAB PO SCH ×2 (07:59→21:56)
[2016-11-10] MEDS: FUROSEMIDE 20 MG TAB PO SCH ×2 (07:59→16:29)
--- NOTE | 2016-11-10 08:57 | EEG ---
DATE OF SERVICE: 11/08/2016 INDICATIONS FOR EXAMINATION: This patient is a 51 -year-old male being evaluated for new onset seizures. AGE: 51Y EEG FINDINGS: A routine 21 channel awake digital EEG recording was accomplished utilizing the 10-20 international system was accomplished with bipolar and referential montages. The background activity in the most alert resting state consists of a low to medium amplitude, fairly well developed and well sustained 6-7 Hz activity over the posterior head regions. This posterior rhythm attenuates to eye opening. There is a small amount of low amplitude 18-20 Hz beta activity seen maximally over the anterior head regions. Muscle and movement artifact was observed on a few occasions during the tracing. Hyperventilation was not performed. Photic stimulation at flash frequencies of 2-30 Hz produced a minimal occipital driving response. No epileptiform discharges were seen. IMPRESSION: This EEG is moderately abnormal in a diffuse fashion due to slowing of the EEG background. The EEG failed to reveal any focal, lateralized or epileptiform abnormalities. If a seizure disorder remains a strong clinical suspicion that would consider a sleep deprived EEG for further evaluation. Clinical correlation is recommended.
--- NOTE | 2016-11-10 11:29 | ECHOF ---
Referral Reason:Cardiomyopathy MEASUREMENTS -------- HEIGHT: 177.8 cm WEIGHT: 80.7 kg BP: RVIDd: 2.5 cm (< 3.3) IVSd: 1.3 cm (0.6 - 1.1) LVIDd: 5.6 cm (3.9 - 5.3) LVPWd: 1.3 cm (0.6 - 1.1) IVSs: 1.5 cm LVIDs: 4.7 cm LVPWs: 1.6 cm FINDINGS -------- Sinus rhythm. This was a technically good study. Limited Study Overall left ventricular systolic function is moderately impaired with, an EF between 35 - 40 %. Apical anterior LV wall motion is hypokinetic. Apical inferior LV wall motion is akinetic. Apical septum LV wall motion is akinetic. CONCLUSIONS -------- 1. Sinus rhythm. 2. This was a technically good study. 3. Limited Study 4. Overall left ventricular systolic function is moderately impaired with, an EF between 35 - 40 %. 5. Apical anterior LV wall motion is hypokinetic. 6. Apical inferior LV wall motion is akinetic. 7. Apical septum LV wall motion is akinetic. [employer]ARTER: Jose Vitale RDCS
[2016-11-10] MEDS: HYDROcodone/APAP 5-325MG 1 EACH TAB PO PRN ×2 (11:40→21:57)
[2016-11-10 11:41] LABS: Glucose,Whole Blood 164 mg/dL (75-99)
[2016-11-10] MEDS: LISINOPRIL 2.5 MG TAB PO SCH (12:00)
[2016-11-10] MEDS: ALPRAZolam 0.5 MG TAB PO PRN ×2 (12:00→21:57)
--- NOTE | 2016-11-10 12:17 | P.PN ---
Subjective Patient was resting this morning. No events overnight. Objective - Vital Signs Vital signs: Vital Signs Temp 97.3 F L 11/10/16 11:42 Pulse 77 11/10/16 11:42 Resp 16 11/10/16 11:42 BP 117/68 11/10/16 11:42 Pulse Ox 97 11/10/16 11:42 Intake & Output 11/09/16 11/10/16 11/10/16 18:59 06:59 18:59 Intake Total 402 280 200 Balance 402 280 200 Weight 81.1 kg Intake: IV 280 Sodium Chloride 0.9% 1, 280 000 ml @ 20 mls/hr IV . Q24H [facility] Rx#:[id number] Oral 402 200 Other: Voiding Method Toilet Toilet # Voids 3 2 # Bowel Movements 1 - Exam General: The patient is awake and alert, in no distress Eye: there is normal conjunctiva bilaterally. Neck: The neck is supple, there is no JVD. Cardiovascular: Normal S1-S2, no S3-S4, no murmurs. Respiratory: Lungs clear to auscultation bilaterally Gastrointestinal: Abdomen is soft, nontender Musculoskeletal: There is no pedal edema. Neurological:. Speech is normal. Skin: Skin is warm and dry - Labs CBC & Chem 7: 11/10/16 05:52 11/10/16 05:52 Labs: Abnormal Lab Results - Last 24 Hours (Table) 11/09/16 11/09/16 11/10/16 Range/Units 16:39 21:12 05:52 WBC 12.6 H (3.8-10.6) k/uL Neutrophils # 7.9 H (1.3-7.7) k/uL Glucose (74-99) mg/dL POC Glucose (mg/dL) 183 H 181 H (75-99) mg/dL 11/10/16 11/10/16 11/10/16 Range/Units 05:52 06:33 11:39 WBC (3.8-10.6) k/uL Neutrophils # (1.3-7.7) k/uL Glucose 168 H (74-99) mg/dL POC Glucose (mg/dL) 218 H 164 H (75-99) mg/dL Assessment and Plan Plan: 1. Non-ST elevation CA: patient was seen and evaluated by cardiology. He underwent left heart catheterization Showing diffuse coronary artery disease. No intervention attempted. Plan to maximize medical management. Follow-up with cardiology as an outpatient for viability study. 2. New onset seizure: Currently on Dilantin managed by neurology. Repeat levels in the morning. Levels remained below therapeutic range. MRI of the brain showed questionable area of acute ischemia involving the right temporal lobe with chronic ischemic changes as noted in the report. Carotid Doppler showed no hemodynamically significant stenosis. Currently on aspirin and Plavix. Risk modification underlying medical condition discussed with the patient. Currently discussing possible WENDY 3. Type 2 diabetes mellitus: Relatively well-controlled. A1c 7.0. On metformin at home, currently on hold. Start glipizide 5 mg twice daily 4. Hyperlipidemia 5. Tobacco abuse: Counseled to quit during this admission. Currently on nicotine patch. 6. Ischemic cardiomyopathy with impaired systolic dysfunction and ejection fraction of 25%: Continue oral Lasix. Plan for LifeVest prior to discharge. Cardiology following. We will continue supportive care otherwise. Telemetry monitoring. Repeat lab work in the morning. Patient updated about his clinical condition.
--- NOTE | 2016-11-10 14:34 | P.PN ---
Subjective Principal diagnosis: New-onset seizures This is a 51-year-old white male with history of multiple medical problems including diabetes, hyperlipidemia, coronary artery disease and previous stent placement, patient was brought into the ER after an episode of tonic clonic contractions suggestive of a grand mal seizure. This was witnessed by his while he was sitting and watching television. Patient was brought into the ER, and he was post ictal on arrival. Chest x-ray on admission showed evidence of interstitial edema. No history to suggest aspiration. However that was definitely in the differential based on the chest x-ray. Last night I reviewed the chest x-ray, and I recommended diuretics, I also recommended empiric antibiotics in the form of Zosyn. Today's chest x-ray showed a significant and dramatic improvement over the last 12 hours. Hence I will go ahead and discontinue antibiotics, I recommended keeping diuretics on board, and I discussed his condition with the rn embedded who was consulted mostly because of his abnormal troponin and his underlying history of coronary artery disease. At the time of my evaluation today, patient is relatively asymptomatic, he would like to be discharged home, denies any cough no wheezing no shortness of breath no chest pain. EKG showed sinus rhythm with ST elevation in aVR and diffuse ST segment depression suggestive of proximal LAD disease. The patient is seen again today in follow-up 11/09/2016 on the selective care unit. Awake and alert in no acute distress. He is resting comfortably in bed. No oxygen required. Worsening shortness of breath, cough or congestion. He has not had any further seizure activity. MRI of the brain yesterday revealed multiple small less than 1 cm areas of acute ischemia within the right temporal lobe and a single subcentimeter area within the right occipital lobe with no significant mass effect. Neurology is on the case as well. Cardiac catheterization revealed severe two-vessel coronary artery disease involving the distal dominant right coronary artery and a chronic total occlusion in the proximal LAD with in-stent restenosis. He does have severely impaired left ventricular systolic function with estimated ejection fraction 20-25%. He was recommended maximum medical treatment. He may need a LifeVest. The patient is seen again today in follow-up 11/10/2016 on the selective care unit. He is awake and alert in no acute distress. He has not had any further seizure activity. He denies any shortness of breath, cough or congestion. He is maintaining good O2 saturations in the 90s on room air. Objective - Vital Signs Vital signs: Vital Signs Temp 97.3 F L 11/10/16 11:42 Pulse 77 11/10/16 11:42 Resp 16 11/10/16 11:42 BP 117/68 11/10/16 11:42 Pulse Ox 97 11/10/16 11:42 Intake & Output 11/09/16 11/10/16 11/10/16 18:59 06:59 18:59 Intake Total 402 280 516 Balance 402 280 516 Weight 81.1 kg Intake: IV 280 80 Sodium Chloride 0.9% 1, 280 80 000 ml @ 20 mls/hr IV . Q24H [facility] Rx#:[id number] Oral 402 436 Other: Voiding Method Toilet Toilet # Voids 3 2 # Bowel Movements 1 - Exam GENERAL EXAM: Alert, active, comfortable in no apparent distress. HEAD: Normocephalic. EYES: Normal reaction of pupils, equal size. NOSE: Clear with pink turbinates. THROAT: No erythema or exudates. NECK: No masses, no JVD. CHEST: No chest wall deformity. LUNGS: Equal air entry with no crackles, wheeze, rhonchi or dullness. CVS: S1 and S2 normal with no audible mumurs, regular rhythm. ABDOMEN: No hepatosplenomegaly, normal bowel sounds, no guarding or rigidity. SPINE: No scoliosis or deformity SKIN: No rashes CENTRAL NERVOUS SYSTEM: No focal deficits, tone is normal in all 4 extremities. Extremities: There is no significant peripheral edema. No clubbing, no cyanosis. Peripheral pulses are intact. - Labs CBC & Chem 7: 11/10/16 05:52 11/10/16 05:52 Labs: Abnormal Lab Results - Last 24 Hours (Table) 11/09/16 11/09/16 11/10/16 Range/Units 16:39 21:12 05:52 WBC 12.6 H (3.8-10.6) k/uL Neutrophils # 7.9 H (1.3-7.7) k/uL Glucose (74-99) mg/dL POC Glucose (mg/dL) 183 H 181 H (75-99) mg/dL 11/10/16 11/10/16 11/10/16 Range/Units 05:52 06:33 11:39 WBC (3.8-10.6) k/uL Neutrophils # (1.3-7.7) k/uL Glucose 168 H (74-99) mg/dL POC Glucose (mg/dL) 218 H 164 H (75-99) mg/dL Assessment and Plan Plan: Impression: 1 acute non-ST elevation myocardial infarction status post cardiac catheterization revealing severe 2 vessel disease with plans for maximal medical therapy. 2 acute pulmonary edema, resolved. severely impaired left ventricular systolic function with estimated ejection fraction 20-25%. 3 acute new onset grand mal seizure, remote history of head trauma as a child. But no history of documented seizures in the past. Patient was loaded with Dilantin in the ER, and a neurological consultation was initiated. 4 history of documented coronary artery disease and previous stent placement 5 history of type 2 diabetes 6 history of dyslipidemia. 7 history of tobacco dependence syndrome, counseled regarding smoking cessation. Plan: The patient was seen and evaluated by Dr. Toscano. He is cleared for discharge from the pulmonary standpoint. He has not had any further seizure activity. Cardiology is on the case regarding the coronary artery disease and ischemic cardiomyopathy.. Discharge planning is in place. We will see the patient on as -needed basis.
--- NOTE | 2016-11-10 15:14 | P.PN ---
Subjective Principal diagnosis: ACS This is a pleasant 51-year-old gentleman with a past medical history significant for CAD and prior stenting of the LAD according to him was performed in 2003 with unknown details at this point, and the patient doesn't follow up with any manager internal, as well as significant history of smoking, was brought to the hospital after he had seizure episode at home.The patient was at home with his when he suddenly lost his consciousness. He was brought to the emergency room by ambulance. In the ER he was in acute respiratory distress and he felt better after he was given Lasix IV.The EKG showed sinus rhythm with ST elevation in aVR and diffuse ST segment depression finding consistent and concerning for proximal LAD disease. The cardiac enzymes were checked and came in to be abnormal and consistent with acute VT.The patient underwent a heart catheterization which showed severe 2 vessel CAD. He was found to have severe disease involving the distal RCA as well as chronic total occlusion of the mid LAD which seems to be in-stent occlusion and the LAD fills by collateral from the right coronary artery.The echocardiogram showed impaired LV function with an ejection fraction of 20-25%.Currently the patient is on maximize medical treatment consistent of dual antiplatelet therapy, metoprolol, lisinopril, and Aldactone. MRI of the brain was performed which revealed multiple small been 1 cm areas of acute ischemia within the right temporal lobe and single subcentimeter area within the right subtotal lobe. Because of these findings neurology has requested cardiology to perform a WENDY. The risks and the benefits of the procedure were explained to the patient in detail and this will be performed tomorrow. Patient did have a repeat echocardiogram with Doppler study performed which revealed an ejection fraction of 35% Objective - Vital Signs Vital signs: Vital Signs Temp 97.3 F L 11/10/16 11:42 Pulse 77 11/10/16 11:42 Resp 16 11/10/16 11:42 BP 117/68 11/10/16 11:42 Pulse Ox 97 11/10/16 11:42 Intake & Output 11/09/16 11/10/16 11/10/16 18:59 06:59 18:59 Intake Total 402 280 516 Balance 402 280 516 Weight 81.1 kg Intake: IV 280 80 Sodium Chloride 0.9% 1, 280 80 000 ml @ 20 mls/hr IV . Q24H [facility] Rx#:[id number] Oral 402 436 Other: Voiding Method Toilet Toilet # Voids 3 2 # Bowel Movements 1 - Exam PHYSICAL EXAMINATION: HEENT: [Head is atraumatic, normocephalic. Pupils equal, round. Neck is supple. There is no elevated jugular venous pressure.] HEART EXAMINATION: [Heart S1, S2 normal. No murmur or gallop heard.] CHEST EXAMINATION:[ Lungs are clear to auscultation and precussion. No chest wall tenderness is noted on palpation or with deep breathing.] ABDOMEN: [ Soft, nontender. Bowel sounds are heard. No organomegaly noted]. EXTREMITIES:[ 2+ peripheral pulses with no evidence of peripheral edema and no calf tenderness noted]. NEUROLOGIC [patient is awake, alert and oriented -3.] . - Labs CBC & Chem 7: 11/10/16 05:52 11/10/16 05:52 Labs: Abnormal Lab Results - Last 24 Hours (Table) 11/09/16 11/09/16 11/10/16 Range/Units 16:39 21:12 05:52 WBC 12.6 H (3.8-10.6) k/uL Neutrophils # 7.9 H (1.3-7.7) k/uL Glucose (74-99) mg/dL POC Glucose (mg/dL) 183 H 181 H (75-99) mg/dL 11/10/16 11/10/16 11/10/16 Range/Units 05:52 06:33 11:39 WBC (3.8-10.6) k/uL Neutrophils # (1.3-7.7) k/uL Glucose 168 H (74-99) mg/dL POC Glucose (mg/dL) 218 H 164 H (75-99) mg/dL Assessment and Plan Plan: Assessment and Plan Assessment #1 acute non-ST elevation myocardial infarction #2 severe underlying CAD as described above #3 severe ischemic cardiomyopathy #4 noncompliance with medication #5 significant history of smoking #6 areas of acute ischemia on brain MRI Plan Patient will be scheduled tomorrow to undergo a transesophageal echocardiographic study. The risks and the benefits were explained to the patient in detail. Repeat echocardiogram with Doppler study was performed today , limited views, EF 35%. Prior to discharge home from the hospital patient will require placement of a LifeVest. This was also explained to the patient in detail. DNP note has been reviewed, I agree with a documented findings and plan of care. Patient was seen and examined.
[2016-11-10 16:38] LABS: Glucose,Whole Blood 129 mg/dL (75-99)
[2016-11-10] MEDS: SODIUM CHLORIDE 0.9% 1,000 ML IV SCH (19:44)
[2016-11-10 21:12] LABS: Glucose,Whole Blood 201 mg/dL (75-99)
[2016-11-10] MEDS: ATORVASTATIN 80 MG TAB PO SCH (21:56)
[2016-11-10] MEDS: MELATONIN 5 MG TABLET PO SCH (21:56)
--- NOTE | 2016-11-10 22:46 | PN ---
DATE OF SERVICE: 11/10/2016 REASON FOR FOLLOWUP: Left gluteal wound. INTERVAL HISTORY: The patient is afebrile. He has been breathing comfortably. Denies significant chest pain or cough. No abdominal pain or pain in his gluteal area. On examination, blood pressure is 124/71 with a pulse of 88, temperature 97.1. He is 97% on room air. General description is a middle-aged male up in the bed in no distress. RESPIRATORY SYSTEM: Unlabored breathing. Clear to auscultation anteriorly. HEART: S1, S2. Regular rate and rhythm. ABDOMEN: Soft. No tenderness. The gluteal wound is currently dressed; no obvious drainage. LABS: Hemoglobin is 14.5, white count 12.6. BUN of 18, creatinine 0.65. DIAGNOSTIC IMPRESSION AND PLAN: Patient with left gluteal wound, currently without slough or any cellulitis. I recommend local wound care with Aquacel Silver packing and reevaluate the wound tomorrow At the time of dressing changes. No need for systemic antibiotic therapy. Continue supportive care. MTDD
[2016-11-11 06:11] LABS: Glucose,Whole Blood 135 mg/dL (75-99)
[2016-11-11 06:35] LABS: Basophils # (A) 0.1 k/uL (0-0.2); Basophils % (A) 1 %; CH 31.1; CHCM 34.1; Eosinophils # (A) 0.4 k/uL (0-0.7); Eosinophils % (A) 4 %; HCT 40.8 % (39.0-53.0); HGB 13.7 gm/dL (13.0-17.5); Luc # (Auto) 0.29; Luc % (Auto) 3; Lymphocytes # (A) 2.3 k/uL (1.0-4.8); Lymphocytes % (A) 23 %; MCH 30.8 pg (25.0-35.0); MCHC 33.6 g/dL (31.0-37.0); MCV 91.5 fL (80.0-100.0); Monocytes # (A) 0.6 k/uL (0-1.0); Monocytes % (A) 6 %; Neutrophils # (A) 6.4 k/uL (1.3-7.7); Neutrophils % (A) 63 %; RBC 4.46 m/uL (4.30-5.90); RDW 13.2 % (11.5-15.5); WBC 10.2 k/uL (3.8-10.6); WBC (Perox) 10.12
[2016-11-11 06:41] LABS: Anion Gap 11 mmol/L; Blood Urea Nitrogen 19 mg/dL (9-20); Calcium 9.5 mg/dL (8.4-10.2); Carbon Dioxide 25 mmol/L (22-30); Chloride 105 mmol/L (98-107); Glucose 152 mg/dL (74-99); Non-African American GFR(MDRD) >60 (>60 ml/min/1.73 sqM); Potassium 4.3 mmol/L (3.5-5.1); Sodium 141 mmol/L (137-145)
[2016-11-11] MEDS: INSULIN LISPRO (humaLOG) 300 UNIT/3 ML VIAL SQ SCH ×4 (06:48→21:51)
[2016-11-11] MEDS ORDERED: fentaNYL (PF) 50 MCG/ML 2 ML AMP ONE (10:27)
[2016-11-11] MEDS ORDERED: MIDAZOLAM 2 MG/2 ML VIAL ONE (10:27)
[2016-11-11] MEDS ORDERED: SODIUM CHLORIDE 0.9% 500 ML IV ONE (11:36)
[2016-11-11] MEDS: BENZOCAINE SPRAY 100 APPLIC/CAN MUCOUS MEM ONE ×2 (11:43→11:48)
[2016-11-11] MEDS ORDERED: fentaNYL (PF) 50 MCG/ML 2 ML AMP IV ONE (11:49)
[2016-11-11] MEDS ORDERED: MIDAZOLAM 2 MG/2 ML VIAL IVP ONE (11:49)
[2016-11-11] MEDS: MIDAZOLAM 2 MG/2 ML VIAL IVP ONE ×2 (11:50→11:52)
[2016-11-11 12:33] LABS: Glucose,Whole Blood 137 mg/dL (75-99)
[2016-11-11] MEDS: ASPIRIN 325 MG TAB PO SCH (12:40)
[2016-11-11] MEDS: CLOPIDOGREL 75 MG TAB PO SCH (12:42)
[2016-11-11] MEDS: glipiZIDE 5 MG TAB PO SCH ×2 (12:43→17:29)
[2016-11-11] MEDS: FUROSEMIDE 20 MG TAB PO SCH ×2 (12:46→15:23)
[2016-11-11] MEDS: METOPROLOL TARTRATE 25 MG TAB PO SCH ×2 (12:47→20:47)
[2016-11-11] MEDS: LISINOPRIL 2.5 MG TAB PO SCH (12:48)
[2016-11-11] MEDS: PHENYTOIN SODIUM EXTENDED 100 MG CAP PO SCH ×2 (12:49→20:47)
--- NOTE | 2016-11-11 12:50 | ECHOT ---
DATE OF SERVICE: 11/11/2016 PERFORMING PHYSICIAN: Gurmeet Ambrose MD, Circuit Court Clerk. PROCEDURE PERFORMED: Transesophageal echocardiogram. INDICATION: This is a pleasant 51-year-old gentleman who was admitted to the hospital with a seizure and underwent an MRI of the brain which showed multiple areas consistent with a stroke. The WENDY is to rule out any cardiac source of embolization. COMPLICATIONS: None. LEVEL OF SEDATION: Moderate with a sedation length of 20 minutes. PROCEDURE DESCRIPTION: After obtaining an informed consent, explaining the procedure, benefits, risks, complications and alternatives, the patient was brought to the transesophageal echocardiogram suite. A pulse oximetry and heart rate monitors were attached to the patient prior to the procedure. The patient's throat was sprayed using lidocaine locally. Following that, the patient was turned into left lateral position. A bite guard was placed and the patient was then sedated with the above doses of Versed and fentanyl in divided doses. Following that, the transesophageal echocardiogram probe was advanced through the bite guard into the mid esophagus where 2-D echocardiogram images as well as color Doppler images of various cardiac structures were obtained. We evaluated the interatrial septum using 2-D echocardiogram, color Doppler, and contrast study. The procedure was completed. There were no complications. FINDINGS: The left ventricle appeared to be dilated. The left ventricular systolic function is impaired with an ejection fraction of 35% to 40% with anterior hypokinesia. The right ventricle appeared to be of normal size and function. The left atrium appeared to be mildly dilated. The aortic valve appeared to be thickened and calcified without stenosis or regurgitation. The mitral valve seems to be also thickened without significant MR. The left atrial appendage appeared to be free from any thrombus. The intra-atrial septum appeared to be intact without any evidence of shunt. CONCLUSION: 1. There is no evidence of cardiac source of embolization. 2. Intact intra-atrial septum without any evidence of shunt. 3. Normal left atrial appendage without any evidence of thrombus. 4. Impaired left ventricular function with an ejection fraction of 35 to 40% with anterior hypokinesia. 5. Aortic sclerosis without stenosis and without insufficiency. 6. Thickened mitral valve leaflets with mild mitral regurgitation. 7. Normal tricuspid valve and pulmonic valve. 8. Mild atherosclerotic plaque in the descending thoracic aorta.
[2016-11-11] MEDS: SPIRONOLACTONE 25 MG TAB PO SCH (12:51)
[2016-11-11] MEDS: NICOTINE 21MG/24HR PATCH TRANSDERM SCH (12:56)
--- NOTE | 2016-11-11 12:56 | P.PN ---
Subjective Patient is doing well today. No events overnight. He just returned from WENDY. Objective - Vital Signs Vital signs: Vital Signs Temp 97.6 F 11/11/16 08:00 Pulse 91 11/11/16 12:00 Resp 18 11/11/16 11:36 BP 154/86 11/11/16 12:00 Pulse Ox 95 11/11/16 12:00 Intake & Output 11/10/16 11/11/16 11/11/16 18:59 06:59 18:59 Intake Total 696 20 200 Output Total 800 Balance 696 -780 200 Weight 80.7 kg Intake: IV 80 20 200 Sodium Chloride 0.9% 1, 80 20 000 ml @ 20 mls/hr IV . Q24H ANJEL Rx#:[id number] Oral 616 Output: Urine 800 Other: Voiding Method Toilet # Voids 1 - Exam General: The patient is awake and alert, in no distress Eye: there is normal conjunctiva bilaterally. Neck: The neck is supple, there is no JVD. Cardiovascular: Normal S1-S2, no S3-S4, no murmurs. Respiratory: Lungs clear to auscultation bilaterally Gastrointestinal: Abdomen is soft, nontender Musculoskeletal: There is no pedal edema. Neurological:. Speech is normal. Skin: Skin is warm and dry - Labs CBC & Chem 7: 11/11/16 05:59 11/11/16 05:59 Labs: Abnormal Lab Results - Last 24 Hours (Table) 11/10/16 11/10/16 11/11/16 Range/Units 16:30 21:11 05:59 Glucose 152 H (74-99) mg/dL POC Glucose (mg/dL) 129 H 201 H (75-99) mg/dL 11/11/16 11/11/16 Range/Units 06:09 12:31 Glucose (74-99) mg/dL POC Glucose (mg/dL) 135 H 137 H (75-99) mg/dL Assessment and Plan Plan: 1. Non-ST elevation GA: patient was seen and evaluated by cardiology. He underwent left heart catheterization Showing diffuse coronary artery disease. No intervention attempted. Plan to maximize medical management. Follow-up with cardiology as an outpatient for viability study. 2. New onset seizure: Currently on Dilantin managed by neurology. Repeat levels in the morning. Levels remained below therapeutic range. MRI of the brain showed questionable area of acute ischemia involving the right temporal lobe with chronic ischemic changes as noted in the report. Carotid Doppler showed no hemodynamically significant stenosis. Currently on aspirin and Plavix. Risk modification underlying medical condition discussed with the patient. 3. Type 2 diabetes mellitus: Relatively well-controlled. A1c 7.0. On metformin at home, currently on hold. Start glipizide 5 mg twice daily 4. Hyperlipidemia 5. Tobacco abuse: Counseled to quit during this admission. Currently on nicotine patch. 6. Ischemic cardiomyopathy with impaired systolic dysfunction and ejection fraction of 35%: Continue oral Lasix. Plan for LifeVest prior to discharge. Cardiology following. Patient underwent a WENDY today awaiting report. We will continue supportive care otherwise. Telemetry monitoring. Repeat lab work in the morning. Patient updated about his clinical condition. Anticipate discharge home tomorrow.
[2016-11-11] MEDS: SODIUM CHLORIDE 0.9% 1,000 ML IV SCH (13:01)
[2016-11-11 16:52] LABS: Glucose,Whole Blood 256 mg/dL (75-99)
[2016-11-11] MEDS: ATORVASTATIN 80 MG TAB PO SCH (20:47)
[2016-11-11] MEDS: MELATONIN 5 MG TABLET PO SCH (20:47)
[2016-11-11 21:38] LABS: Glucose,Whole Blood 113 mg/dL (75-99)
[2016-11-11] MEDS: HYDROcodone/APAP 5-325MG 1 EACH TAB PO PRN (22:17)
[2016-11-11] MEDS: ALPRAZolam 0.5 MG TAB PO PRN (22:18)
[2016-11-12 06:01] LABS: Glucose,Whole Blood 142 mg/dL (75-99)
[2016-11-12 06:19] LABS: Basophils # (A) 0.1 k/uL (0-0.2); Basophils % (A) 1 %; CH 31.2; CHCM 34.5; Eosinophils # (A) 0.4 k/uL (0-0.7); Eosinophils % (A) 4 %; HCT 42.4 % (39.0-53.0); HDW 2.29; HGB 14.2 gm/dL (13.0-17.5); Luc # (Auto) 0.27; Luc % (Auto) 3; Lymphocytes # (A) 2.5 k/uL (1.0-4.8); Lymphocytes % (A) 26 %; MCH 30.3 pg (25.0-35.0); MCHC 33.4 g/dL (31.0-37.0); MCV 90.8 fL (80.0-100.0); Mean Platelet Volume 7.8; Monocytes # (A) 0.7 k/uL (0-1.0); Monocytes % (A) 7 %; Neutrophils # (A) 5.8 k/uL (1.3-7.7); Neutrophils % (A) 59 %; RBC 4.67 m/uL (4.30-5.90); RDW 13.1 % (11.5-15.5); WBC 9.8 k/uL (3.8-10.6); WBC (Perox) 9.81
[2016-11-12] MEDS: INSULIN LISPRO (humaLOG) 300 UNIT/3 ML VIAL SQ SCH ×2 (06:31→12:22)
[2016-11-12] MEDS: glipiZIDE 5 MG TAB PO SCH (06:31)
[2016-11-12 06:34] LABS: Anion Gap 11 mmol/L; Blood Urea Nitrogen 20 mg/dL (9-20); Calcium 9.4 mg/dL (8.4-10.2); Carbon Dioxide 24 mmol/L (22-30); Chloride 105 mmol/L (98-107); Glucose 151 mg/dL (74-99); Non-African American GFR(MDRD) >60 (>60 ml/min/1.73 sqM); Potassium 4.3 mmol/L (3.5-5.1); Sodium 140 mmol/L (137-145)
[2016-11-12] MEDS: LISINOPRIL 2.5 MG TAB PO SCH (09:52)
[2016-11-12] MEDS: ASPIRIN 325 MG TAB PO SCH (09:52)
[2016-11-12] MEDS: METOPROLOL TARTRATE 25 MG TAB PO SCH (09:52)
[2016-11-12] MEDS: CLOPIDOGREL 75 MG TAB PO SCH (09:52)
[2016-11-12] MEDS: FUROSEMIDE 20 MG TAB PO SCH (09:52)
[2016-11-12] MEDS: NICOTINE 21MG/24HR PATCH TRANSDERM SCH (09:53)
[2016-11-12] MEDS: SPIRONOLACTONE 25 MG TAB PO SCH (09:53)
[2016-11-12] MEDS: PHENYTOIN SODIUM EXTENDED 100 MG CAP PO SCH (09:53)
[2016-11-12 10:38] VITALS: BMI 25.4
--- NOTE | 2016-11-12 11:45 | P.DS ---
Providers Date of admission: 11/06/16 12:23 Attending physician: Wu Hudson Consults: 11/06/16 12:42 Consult Physician Urgent Consulting Provider: Anny Barnett Consult Reason/Comments: Hypoxia, Rule out pulmonary edema Do you want consulting provider notified?: Yes 11/06/16 13:31 Consult Physician Routine Consulting Provider: Gurmeet Ambrose Consult Reason/Comments: Low EF 25% Do you want consulting provider notified?: Yes, Notify in am 11/07/16 13:42 Consult Physician Routine Consulting Provider: [facility] Consult Reason/Comments: Post Interventional patient Do you want consulting provider notified?: Already Contacted 11/08/16 13:34 Consult Physician Routine Consulting Provider: Lauar Vu Consult Reason/Comments: Wound Do you want consulting provider notified?: Yes Primary care physician: Riana Carpenter [facility] Course: This is a 51-year-old gentleman who presented to the hospital initially with suspected seizure disorder and was found to have acute non-ST elevation NE. Patient was evaluated by cardiology and was found to have underlying ischemic cardiomyopathy with ejection fraction of 20%. This was new diagnosis for this patient. He underwent left heart catheterization showing diffuse coronary artery disease. Patient was managed medically with optimal medical management. He was also evaluated by neurology for underlying seizure and was found to have evidence of multiple area of ischemia involving the right temporal lobe concerning for a possible embolic event. He underwent a WENDY showing no intracardiac source for emboli. Patient was started on Dilantin for underlying seizure and his levels were therapeutic on the day of discharge. He will be discharged home in a stable condition. He will be provided with a LifeVest and follow-up with cardiology as directed. Below is a list of his medical problems addressed during this hospitalization. 1. Non-ST elevation NE: patient was seen and evaluated by cardiology. He underwent left heart catheterization Showing diffuse coronary artery disease. No intervention attempted. Plan to maximize medical management. Follow-up with cardiology as an outpatient for viability study. 2. New onset seizure: Currently on Dilantin managed by neurology. Repeat levels in the morning. Levels remained below therapeutic range. MRI of the brain showed questionable area of acute ischemia involving the right temporal lobe with chronic ischemic changes as noted in the report. Carotid Doppler showed no hemodynamically significant stenosis. Currently on aspirin and Plavix. Risk modification underlying medical condition discussed with the patient. 3. Type 2 diabetes mellitus: Relatively well-controlled. A1c 7.0. On metformin at home, currently on hold. Start glipizide 5 mg twice daily 4. Hyperlipidemia 5. Tobacco abuse: Counseled to quit during this admission. Currently on nicotine patch. 6. Ischemic cardiomyopathy with impaired systolic dysfunction and ejection fraction of 35% - Follow-up with cardiology as directed - Follow up with primary care physician - Obtain Dilantin level next week Patient Condition at Discharge: Fair Plan - Discharge Summary New Discharge Prescriptions: Atorvastatin [Lipitor] 80 mg PO HS #303 tab Clopidogrel [Plavix] 75 mg PO DAILY #30 tab Furosemide [Lasix] 20 mg PO BID@0900,1600 #60 tab Lisinopril [Zestril] 2.5 mg PO DAILY #30 tab Metoprolol Tartrate [Lopressor] 25 mg PO BID #60 tab Nicotine 21Mg/24Hr Patch [Habitrol] 1 patch TRANSDERM DAILY #30 patch Nitroglycerin Sl Tabs [Nitrostat] 0.4 mg SUBLINGUAL Q5M PRN #25 tab PRN Reason: Chest Pain Phenytoin Sodium Extended [Dilantin] 200 mg PO BID #60 cap Spironolactone [Aldactone] 25 mg PO DAILY #30 tab Discharge Medication List Aspirin EC [Ecotrin Low Dose] 81 mg PO DAILY 11/06/16 [History] metFORMIN HCL [Glucophage] 500 mg PO BID 11/06/16 [History] Atorvastatin [Lipitor] 80 mg PO HS #303 tab 11/11/16 [Rx] Clopidogrel [Plavix] 75 mg PO DAILY #30 tab 11/11/16 [Rx] Furosemide [Lasix] 20 mg PO BID@0900,1600 #60 tab 11/11/16 [Rx] Lisinopril [Zestril] 2.5 mg PO DAILY #30 tab 11/11/16 [Rx] Metoprolol Tartrate [Lopressor] 25 mg PO BID #60 tab 11/11/16 [Rx] Nicotine 21Mg/24Hr Patch [Habitrol] 1 patch TRANSDERM DAILY #30 patch 11/11/16 [ Rx] Nitroglycerin Sl Tabs [Nitrostat] 0.4 mg SUBLINGUAL Q5M PRN #25 tab 11/11/16 [Rx ] Spironolactone [Aldactone] 25 mg PO DAILY #30 tab 11/11/16 [Rx] Phenytoin Sodium Extended [Dilantin] 200 mg PO BID #60 cap 11/12/16 [Rx] Follow up Appointment(s)/Referral(s): Gurmeet Ambrose MD [STAFF PHYSICIAN] - [facility] [NON-STAFF] - 11/11/16 9:45 am Riana Carpenter MD [Primary Care Provider] - 3 Days Patient Instructions/Handouts: How to Stop Smoking (DC), After Radial Heart Catheterization (GEN) Activity/Diet/Wound Care/Special Instructions: PER NEUROLOGIST- NO DRIVING UNTIL SEIZURE FREE FOR 6 MONTHS WITH Discharge Disposition: HOME SELF-CARE
[2016-11-12 12:15] LABS: Glucose,Whole Blood 118 mg/dL (75-99)
[2016-11-12] MEDS: SODIUM CHLORIDE 0.9% 1,000 ML IV SCH (12:22)
--- NOTE | 2016-11-12 14:07 | P.PN ---
Subjective Principal diagnosis: ACS This is a pleasant 51-year-old gentleman with a past medical history significant for CAD and prior stenting of the LAD according to him was performed in 2003 with unknown details at this point, and the patient doesn't follow up with any water quality technician, as well as significant history of smoking, was brought to the hospital after he had seizure episode at home.The patient was at home with his when he suddenly lost his consciousness. He was brought to the emergency room by ambulance. In the ER he was in acute respiratory distress and he felt better after he was given Lasix IV.The EKG showed sinus rhythm with ST elevation in aVR and diffuse ST segment depression finding consistent and concerning for proximal LAD disease. The cardiac enzymes were checked and came in to be abnormal and consistent with acute MN.The patient underwent a heart catheterization which showed severe 2 vessel CAD. He was found to have severe disease involving the distal RCA as well as chronic total occlusion of the mid LAD which seems to be in-stent occlusion and the LAD fills by collateral from the right coronary artery.The echocardiogram showed impaired LV function with an ejection fraction of 20-25%.Currently the patient is on maximize medical treatment consistent of dual antiplatelet therapy, metoprolol, lisinopril, and Aldactone. MRI of the brain was performed which revealed multiple small been 1 cm areas of acute ischemia within the right temporal lobe and single subcentimeter area within the right subtotal lobe. underwent a WENDY by Dr. Ambrose yesterday which did not reveal any evidence of cardiac source of embolization. Intact intra-atrial septum without any evidence of shunt. Normal left atrial appendage without evidence of any thrombus. Impaired left ventricular systolic function with an ejection fraction of 35-40%. Patient was seen and examined today, feels well overall. Eager to be discharged home. We are waiting for the LifeVest arrived, once it is placed on the patient he may be able to be discharged home today. We will make him a follow-up appointment in the office post discharge. Objective - Vital Signs Vital signs: Vital Signs Temp 97.7 F 11/11/16 20:00 Pulse 73 11/12/16 04:00 Resp 16 11/12/16 04:00 BP 124/79 11/12/16 04:00 Pulse Ox 98 11/12/16 04:00 Intake & Output 11/11/16 11/12/16 11/12/16 18:59 06:59 18:59 Intake Total 200 222 480 Output Total 1600 Balance 200 -1378 480 Weight 80.6 kg 80.6 kg Intake: IV 200 Oral 222 480 Output: Urine 1600 Other: # Voids 2 2 # Bowel Movements 1 - Exam PHYSICAL EXAMINATION: HEENT: [Head is atraumatic, normocephalic. Pupils equal, round. Neck is supple. There is no elevated jugular venous pressure.] HEART EXAMINATION: [Heart S1, S2 normal. No murmur or gallop heard.] CHEST EXAMINATION:[ Lungs are clear to auscultation and precussion. No chest wall tenderness is noted on palpation or with deep breathing.] ABDOMEN: [ Soft, nontender. Bowel sounds are heard. No organomegaly noted]. EXTREMITIES:[ 2+ peripheral pulses with no evidence of peripheral edema and no calf tenderness noted]. NEUROLOGIC [patient is awake, alert and oriented -3.] . - Labs CBC & Chem 7: 11/12/16 05:56 11/12/16 05:54 Labs: Abnormal Lab Results - Last 24 Hours (Table) 11/11/16 11/11/16 11/12/16 Range/Units 16:50 21:37 05:54 Creatinine 0.65 L (0.66-1.25) mg/dL Glucose 151 H (74-99) mg/dL POC Glucose (mg/dL) 256 H 113 H (75-99) mg/dL 11/12/16 11/12/16 Range/Units 05:59 12:14 Creatinine (0.66-1.25) mg/dL Glucose (74-99) mg/dL POC Glucose (mg/dL) 142 H 118 H (75-99) mg/dL Assessment and Plan Plan: Assessment and Plan Assessment #1 acute non-ST elevation myocardial infarction #2 severe underlying CAD as described above #3 severe ischemic cardiomyopathy #4 noncompliance with medication #5 significant history of smoking #6 areas of acute ischemia on brain MRI, patient underwent a transesophageal echocardiographic study yesterday which did not reveal any evidence of cardiac source of embolization. Intact atrial septum without any evidence of shunts. Normal left atrial appendage without any evidence of thrombus. Impaired left ventricular systolic function with an ejection fraction of 35-40% with anterior hypokinesia. Plan Patient may be able to be discharged home today from cardiology's perspective. He will be discharged home with a LifeVest in place for prevention of sudden cardiac . Follow-up appointment will be made with Dr. Chapman in the office post discharge. DNP note has been reviewed, I agree with a documented findings and plan of care. Patient was seen and examined.
[2016-11-12 14:55] VITALS: RESP 18
[2016-11-12 14:59] VITALS: BP 102/56; PULSE 81; TEMP 97.8
--- NOTE | 2016-11-12 15:40 | PN ---
DATE OF SERVICE: 11/12/2016 REASON FOR FOLLOWUP: Left gluteal wound. INTERVAL HISTORY: The patient is afebrile. He is feeling better, breathing comfortably. Denies significant pain to the gluteal area. No drainage from it. Denies any chest pain, shortness of breath or cough. No abdominal pain or any diarrhea. On examination, blood pressure 124/79 with a pulse of 73, temperature 97.7. He is 98% on room air. General description is a middle-aged male up in the bed in no distress. Examination of the left gluteal wound shows no purulence; overall decreased in size; no surrounding induration or foul-smelling drainage. LABS: White count normal at 9.8. DIAGNOSTIC IMPRESSION AND PLAN: Patient with a left gluteal wound. Recommend local wound care with Aquacel Silver packing of the wound to be changed q.48 hours with outpatient followup. Instructions provided to the RN. Continue supportive care.
== END 2016-11-12 15:07 | disposition home or self-care (01) | DRG 280 ==
LOC: EC 09:36 → 6SEL 12:23
PROVIDERS: ADMIT Internal Medicine; ATTEND Internal Medicine
PROC: B211YZZ Fluoroscopy of Multiple Coronary Arteries using Other Contrast (ICD-10-PCS; 2016-11-07)
PROC: 4A023N7 Measurement of Cardiac Sampling and Pressure, Left Heart, Percutaneous Approach (ICD-10-PCS; principal; 2016-11-07 11:45)
PROC: B215YZZ Fluoroscopy of Left Heart using Other Contrast (ICD-10-PCS; 2016-11-07 11:45)
PROC: B24BZZ4 Ultrasonography of Heart with Aorta, Transesophageal (ICD-10-PCS; 2016-11-11)
DX: I21.4 Non-ST elevation (NSTEMI) myocardial infarction (principal); J81.0 Acute pulmonary edema; I63.411 Cerebral infarction due to embolism of right middle cerebral artery; T82.855A Stenosis of coronary artery stent, initial encounter; I25.82 Chronic total occlusion of coronary artery; E87.70 Fluid overload, unspecified; I25.5 Ischemic cardiomyopathy; G40.409 Other generalized epilepsy and epileptic syndromes, not intractable, without status epilepticus; E11.9 Type 2 diabetes mellitus without complications; I25.10 Atherosclerotic heart disease of native coronary artery without angina pectoris; Y83.1 Surgical operation with implant of artificial internal device as the cause of abnormal reaction of the patient, or of later complication, without mention of misadventure at the time of the procedure; E78.5 Hyperlipidemia, unspecified; F12.90 Cannabis use, unspecified, uncomplicated; S31.821A Laceration without foreign body of left buttock, initial encounter; F17.210 Nicotine dependence, cigarettes, uncomplicated; I10 Essential (primary) hypertension; I25.2 Old myocardial infarction; Z91.14 Patient's other noncompliance with medication regimen; Z87.828 Personal history of other (healed) physical injury and trauma; Z79.82 Long term (current) use of aspirin; Z79.84 Long term (current) use of oral hypoglycemic drugs; Z79.899 Other long term (current) drug therapy
CPT/HCPCS: 36415; 70450; 70551; 71010; 71020; 71275; 80048; 80053; 80061; 80185; 81001; 81003; 82550; 82553; 83036; 83735; 83880; 84484; 85025; 85379; 85610; 85730; 93005; 93306; 93308; 93312; 93320; 93325; 93458; 93880; 95819; 96361; 96365; 96375; 99285

== ENCOUNTER → 2017-01-31 | Outpatient (CLI) | payer OTHER ==
[2017-01-31 14:15] LABS: CH 31.5; CHCM 34.4; HCT 43.1 % (39.0-53.0); HDW 2.48; HGB 14.5 gm/dL (13.0-17.5); MCH 30.9 pg (25.0-35.0); MCHC 33.6 g/dL (31.0-37.0); Mean Platelet Volume 8.2; RBC 4.68 m/uL (4.30-5.90); RDW 14.1 % (11.5-15.5); WBC 11.7 k/uL (3.8-10.6)
[2017-01-31 14:26] LABS: Anion Gap 12 mmol/L; Blood Urea Nitrogen 15 mg/dL (9-20); Carbon Dioxide 29 mmol/L (22-30); Chloride 101 mmol/L (98-107); Non-African American GFR(MDRD) >60 (>60 ml/min/1.73 sqM); Potassium 4.2 mmol/L (3.5-5.1); Sodium 142 mmol/L (137-145)
== END | disposition home or self-care (01) ==
LOC: LABPAT 13:38
PROVIDERS: ATTEND Internal Medicine Interventional Cardiology
DX: Z01.812 Encounter for preprocedural laboratory examination (principal); I25.10 Atherosclerotic heart disease of native coronary artery without angina pectoris
CPT/HCPCS: 80051; 82565; 84520; 85027

== ENCOUNTER 2017-02-01 08:00 | Day surgery (SDC) | payer OTHER ==
[~2017-02-01 08:00] MED LIST: ALPRAZolam 0.25 MG TAB PO PRN; ALPRAZolam 0.5 MG TAB PO PRN; ASPIRIN 325 MG TAB PO STA; ATORVASTATIN 80 MG TAB PO STA; NITROGLYCERIN SL TABS 0.4 MG TAB SUBLINGUAL PRN; SODIUM CHLORIDE 0.9% 1,000 ML in EMPTY BAG 1 BAG IV ONE
[2017-02-01 08:45] LABS: Glucose,Whole Blood 215 mg/dL (75-99)
[2017-02-01 08:55] LABS: Basophils # (A) 0.1 k/uL (0-0.2); Basophils % (A) 1 %; CH 31.1; CHCM 34.7; Eosinophils # (A) 0.3 k/uL (0-0.7); Eosinophils % (A) 3 %; HCT 41.1 % (39.0-53.0); HDW 2.49; HGB 14.5 gm/dL (13.0-17.5); Luc # (Auto) 0.18; Luc % (Auto) 2; Lymphocytes # (A) 2.6 k/uL (1.0-4.8); Lymphocytes % (A) 27 %; MCH 31.7 pg (25.0-35.0); MCHC 35.3 g/dL (31.0-37.0); Mean Platelet Volume 7.5; Monocytes # (A) 0.7 k/uL (0-1.0); Monocytes % (A) 7 %; Neutrophils # (A) 5.8 k/uL (1.3-7.7); Neutrophils % (A) 61 %; RBC 4.57 m/uL (4.30-5.90); WBC 9.6 k/uL (3.8-10.6); WBC (Perox) 9.47
[2017-02-01] MEDS ORDERED: INSULIN LISPRO (humaLOG) 300 UNIT/3 ML VIAL SQ ONE (08:55)
[2017-02-01 09:01] LABS: Anion Gap 11 mmol/L; Blood Urea Nitrogen 11 mg/dL (9-20); Calcium 9.2 mg/dL (8.4-10.2); Carbon Dioxide 27 mmol/L (22-30); Chloride 103 mmol/L (98-107); Glucose 206 mg/dL (74-99); Non-African American GFR(MDRD) >60 (>60 ml/min/1.73 sqM); Potassium 3.9 mmol/L (3.5-5.1); Sodium 141 mmol/L (137-145)
[2017-02-01] MEDS ORDERED: LIDOCAINE 2% INJ 20 MG/ML (20 ML MDV) ONE (10:36)
[2017-02-01] MEDS ORDERED: MIDAZOLAM 2 MG/2 ML VIAL ONE (10:36)
[2017-02-01] MEDS ORDERED: VERAPAMIL 2.5 MG/ML 2 ML AMP ONE (10:41)
[2017-02-01] MEDS ORDERED: MIDAZOLAM 2 MG/2 ML VIAL IVP ONE (10:46)
[2017-02-01] MEDS ORDERED: niCARdipine 25 MG/10 ML VIAL ONE (10:47)
[2017-02-01] MEDS ORDERED: LIDOCAINE 2% INJ 20 MG/ML SQ ONE (10:49)
[2017-02-01] MEDS ORDERED: BIVALIRUDIN BOLUS 250 MG/50 ML IV ONE (10:54)
[2017-02-01] MEDS ORDERED: BIVALIRUDIN 250 MG in SODIUM CHLORIDE 0.9% 50 ML IV ONE (10:54)
[2017-02-01] MEDS ORDERED: NITROGLYCERIN 1000MCG/10ML SYRINGE INTRACORON ONE (11:00)
[2017-02-01] MEDS ORDERED: CLOPIDOGREL 75 MG TAB ONE (11:06)
[2017-02-01] MEDS ORDERED: CLOPIDOGREL 75 MG TAB PO ONE (11:08)
[2017-02-01] MEDS ORDERED: niCARdipine Syringe (1,000 mcg/10 mL) INTRACORON ONE (11:09)
[2017-02-01] MEDS ORDERED: IOHEXOL 350 MG/ML 125ML BOTTLE INJ ONE (11:14)
[2017-02-01] MEDS ORDERED: NITROGLYCERIN SL TABS 0.4 MG TAB SUBLINGUAL PRN ×2 (11:18→11:20)
[2017-02-01] MEDS ORDERED: ALPRAZolam 0.5 MG TAB PO PRN (11:18)
[2017-02-01] MEDS ORDERED: RX INFO: IV CONTRAST WAS GIVEN 1 EACH MISC MISCELLANE PRN (11:20)
[2017-02-01] MEDS ORDERED: ATROPINE SULFATE 0.1 MG/ML 10ML SYRINGE IV PRN (11:20)
[2017-02-01] MEDS ORDERED: MAG HYDROX/AL HYDROX/SIMETH 30 ML CUP PO PRN (11:20)
[2017-02-01] MEDS ORDERED: ZOLPIDEM 5 MG TAB PO PRN (11:20)
[2017-02-01] MEDS ORDERED: SODIUM CHLORIDE 0.9% 1,000 ML IV SCH (11:30)
--- NOTE | 2017-02-01 11:35 | P.PCN ---
Date of Procedure: 02/01/17 Preoperative Diagnosis: Postoperative Diagnosis: Procedure(s) Performed: Implants: Indications for Procedure: Operative Findings: PERCUTANEOUS CORONARY INTERVENTION Performing physician Gurmeet Ambrose M.D., shoe salesperson Procedure performed Selective right coronary angiogram Successful stenting of the distal RCA using 3.0 x 15 mm Xience ALIN with good angiographic results. Indication This is a pleasant 51-year-old gentleman who was admitted to the hospital a few months ago with acute non-STEMI. He underwent a heart catheterization and was found to have chronic total occlusion of the mid LAD with severe disease involving the RCA. Approach Right common femoral artery Complications None Level of sedation Moderate with sedation length of 25 minutes Procedure description After obtaining an informed consent the patient was brought to the cardiac laborer brooder farm. The right common femoral artery was cannulated and I inserted 6-Gambian sheath in the right common femoral artery. Anticoagulation was initiated using an Mc's was bolus and drip. The RCA was engaged using a JR4 guiding catheter and RCA angiogram was performed. After that I did wire the RCA using a whisper wire. Subsequently I did PTCA ballooning of the distal RCA using 2.5 x 12 mm balloon which was inflated under its nominal pressure. After that I did deploy 3.0 x 15 mm Xience ALIN after I positioned the stent under fluoroscopy guidance and under 16 nancy. I post acid using 3.25 NC balloon which was inflated under 18 nancy for 20 seconds. The following angiogram showed good angiographic results and the procedure was completed without any complications. Postprocedure management Dual antiplatelet therapy Risk factors indication Follow-up with the patient Description of Procedure:
[2017-02-01] MEDS ORDERED: HYDROmorphone 1 MG/ML 1 ML SYRINGE IVP STA ×2 (14:15→22:05)
[2017-02-01] MEDS: levETIRAcetam 500 MG TAB PO SCH ×2 (16:20→22:29)
[2017-02-01 16:42] VITALS: BMI 25.1
[2017-02-01 20:59] LABS: Glucose,Whole Blood 212 mg/dL (75-99)
[2017-02-01] MEDS ORDERED: ATORVASTATIN 80 MG TAB PO SCH (21:00)
[2017-02-01] MEDS: METOPROLOL TARTRATE 25 MG TAB PO SCH (22:28)
[2017-02-01] MEDS: FUROSEMIDE 20 MG TAB PO SCH (22:28)
[2017-02-01 23:38] VITALS: TEMP 98.2
[2017-02-01 23:41] VITALS: RESP 16
[2017-02-02 04:33] VITALS: BP 137/75; PULSE 82
[2017-02-02 06:17] LABS: Glucose,Whole Blood 179 mg/dL (75-99)
[2017-02-02 06:31] LABS: Basophils # (A) 0.1 k/uL (0-0.2); Basophils % (A) 1 %; CH 31.6; CHCM 34.5; Eosinophils # (A) 0.3 k/uL (0-0.7); Eosinophils % (A) 2 %; HCT 42.4 % (39.0-53.0); HDW 2.42; HGB 14.3 gm/dL (13.0-17.5); Luc # (Auto) 0.28; Luc % (Auto) 3; Lymphocytes % (A) 26 %; MCHC 33.7 g/dL (31.0-37.0); Mean Platelet Volume 8.3; Monocytes # (A) 0.9 k/uL (0-1.0); Monocytes % (A) 8 %; Neutrophils % (A) 61 %; RBC 4.61 m/uL (4.30-5.90); RDW 13.6 % (11.5-15.5); WBC 11.5 k/uL (3.8-10.6); WBC (Perox) 12.17
[2017-02-02 06:51] LABS: Anion Gap 10 mmol/L; Blood Urea Nitrogen 7 mg/dL (9-20); Calcium 9.4 mg/dL (8.4-10.2); Carbon Dioxide 26 mmol/L (22-30); Chloride 104 mmol/L (98-107); Glucose 165 mg/dL (74-99); Non-African American GFR(MDRD) >60 (>60 ml/min/1.73 sqM); Potassium 4.1 mmol/L (3.5-5.1); Sodium 140 mmol/L (137-145)
[2017-02-02] MEDS: levETIRAcetam 500 MG TAB PO SCH (08:31)
[2017-02-02] MEDS: METOPROLOL TARTRATE 25 MG TAB PO SCH (08:32)
[2017-02-02] MEDS: FUROSEMIDE 20 MG TAB PO SCH (08:32)
[2017-02-02] MEDS ORDERED: HYDROcodone/APAP 5-325MG 1 EACH TAB PO STA (08:39)
[2017-02-02] MEDS ORDERED: CLOPIDOGREL 75 MG TAB PO SCH (09:00)
[2017-02-02] MEDS ORDERED: NICOTINE 21MG/24HR PATCH TRANSDERM SCH (09:00)
[2017-02-02] MEDS ORDERED: ASPIRIN 81 MG CHEW PO SCH (09:00)
[2017-02-02] MEDS ORDERED: SPIRONOLACTONE 25 MG TAB PO SCH (09:00)
[2017-02-02] MEDS ORDERED: LISINOPRIL 2.5 MG TAB PO SCH (09:00)
--- NOTE | 2017-02-02 11:06 | P.DS ---
Providers Attending physician: Gurmeet Ambrose Consults: 02/01/17 11:20 Consult Physician Routine Consulting Provider: [facility] Consult Reason/Comments: Post Interventional patient Do you want consulting provider notified?: Already Contacted Primary care physician: Riana Carpenter [facility] Course: This is a pleasant 51-year-old gentleman who was admitted to the hospital yesterday and underwent successful stenting of the distal right coronary artery with a good angiographic results and without any complication. On following up with him today, he is doing good and he is asymptomatic. He denies having any chest pain or discomfort or difficulty breathing. The right groin is soft and nontender and without any bruises. The patient is going to be discharged home on dual antiplatelet as well as a statin and I will follow-up with him in a week in the office. Plan - Discharge Summary New Discharge Prescriptions: Continue metFORMIN HCL [Glucophage] 1,000 mg PO BID Aspirin EC [Ecotrin Low Dose] 81 mg PO DAILY Atorvastatin [Lipitor] 80 mg PO HS #303 tab Clopidogrel [Plavix] 75 mg PO DAILY #30 tab Lisinopril [Zestril] 2.5 mg PO DAILY #30 tab Metoprolol Tartrate [Lopressor] 25 mg PO BID #60 tab Nitroglycerin Sl Tabs [Nitrostat] 0.4 mg SUBLINGUAL Q5M PRN #25 tab PRN Reason: Chest Pain Spironolactone [Aldactone] 25 mg PO DAILY #30 tab levETIRAcetam [Keppra Xr] 750 mg PO BID Furosemide [Lasix] 20 mg PO BID Nicotine 21Mg/24Hr Patch [Habitrol] 21 mg TRANSDERM DAILY ALPRAZolam [Xanax] 0.5 mg PO TID PRN PRN Reason: Anxiety Discharge Medication List Aspirin EC [Ecotrin Low Dose] 81 mg PO DAILY 11/06/16 [History] metFORMIN HCL [Glucophage] 1,000 mg PO BID 11/06/16 [History] Atorvastatin [Lipitor] 80 mg PO HS #303 tab 11/11/16 [Rx] Clopidogrel [Plavix] 75 mg PO DAILY #30 tab 11/11/16 [Rx] Lisinopril [Zestril] 2.5 mg PO DAILY #30 tab 11/11/16 [Rx] Metoprolol Tartrate [Lopressor] 25 mg PO BID #60 tab 11/11/16 [Rx] Nitroglycerin Sl Tabs [Nitrostat] 0.4 mg SUBLINGUAL Q5M PRN #25 tab 11/11/16 [Rx ] Spironolactone [Aldactone] 25 mg PO DAILY #30 tab 11/11/16 [Rx] levETIRAcetam [Keppra Xr] 750 mg PO BID 12/09/16 [History] Furosemide [Lasix] 20 mg PO BID 01/28/17 [History] ALPRAZolam [Xanax] 0.5 mg PO TID PRN 02/01/17 [History] Nicotine 21Mg/24Hr Patch [Habitrol] 21 mg TRANSDERM DAILY 02/01/17 [History] Follow up Appointment(s)/Referral(s): Gurmeet Ambrose MD [STAFF PHYSICIAN] - 02/09/17 4:15 pm Patient Instructions/Handouts: *[facility] - After Heart Catheterization - Coffee Roaster Helper Instructions
== END 2017-02-02 11:36 | disposition home or self-care (01) ==
LOC: CATHCVL 08:00 → 6SEL 11:14 → CATHCVL 02-02 11:36
PROVIDERS: ATTEND Internal Medicine Interventional Cardiology
DX: I25.10 Atherosclerotic heart disease of native coronary artery without angina pectoris (principal); I25.82 Chronic total occlusion of coronary artery; R94.31 Abnormal electrocardiogram [ECG] [EKG]; I25.5 Ischemic cardiomyopathy; E78.2 Mixed hyperlipidemia; Z95.5 Presence of coronary angioplasty implant and graft; I10 Essential (primary) hypertension; E11.9 Type 2 diabetes mellitus without complications; I25.2 Old myocardial infarction; Z87.891 Personal history of nicotine dependence; Z79.84 Long term (current) use of oral hypoglycemic drugs; Z79.02 Long term (current) use of antithrombotics/antiplatelets; Z79.82 Long term (current) use of aspirin; Z79.899 Other long term (current) drug therapy
CPT/HCPCS: 80048 ×2; 85025 ×2; 99152; 99153; C9600; C1769 ×3; C1887; C1725 ×2; C1894; C1874; S4990; J2001; J2250; J1170; J0583; Q9967

== ENCOUNTER → 2017-03-28 | Outpatient (CLI) | payer OTHER | END | disposition home or self-care (01) | LOC: LABWHC1 09:49 | PROVIDERS: ATTEND Psychiatry & Neurology Neurology | DX: G40.309 Generalized idiopathic epilepsy and epileptic syndromes, not intractable, without status epilepticus (principal) | CPT/HCPCS: 36415; 80177 ==

== ENCOUNTER 2017-06-22 07:39 | Day surgery (SDC) | payer OTHER ==
[2017-06-21 10:48] VITALS: BMI 25.1
[~2017-06-22 07:39] MED LIST changes: -ALPRAZolam 0.5 MG TAB PO PRN; -ATORVASTATIN 80 MG TAB PO STA; -NITROGLYCERIN SL TABS 0.4 MG TAB SUBLINGUAL PRN
[2017-06-22 08:09] VITALS: TEMP 98.1
[2017-06-22 08:18] LABS: Glucose,Whole Blood 151 mg/dL (75-99)
[2017-06-22] MEDS ORDERED: MIDAZOLAM 2 MG/2 ML VIAL IVP ONE (08:56)
[2017-06-22] MEDS ORDERED: LIDOCAINE 2% INJ 20 MG/ML SQ ONE (09:02)
[2017-06-22] MEDS ORDERED: IODIXANOL 320 MG/ML 100 ML INTRAARTER ONE (09:24)
[2017-06-22] MEDS ORDERED: SODIUM CHLORIDE 0.9% 1,000 ML IV SCH (09:45)
[2017-06-22] MEDS ORDERED: HYDROmorphone 1 MG/ML 1 ML SYRINGE IVP PRN (09:50)
[2017-06-22] MEDS ORDERED: NICOTINE 21MG/24HR PATCH TRANSDERM STA (09:51)
--- NOTE | 2017-06-22 10:09 | LTR ---
DATE OF SERVICE: 06/22/2017 RE: John Da Silva Dear Dr. Carpenter; Mr. John Da Silva underwent a peripheral angiogram and that showed occluded left femoral artery. As you remember, he is a pleasant 52-year-old gentleman who was experiencing left leg intermittent claudication. I will schedule the patient to undergo a PODIATRIC AIDE of the left SFA in the next few weeks. I want to thank you for allowing me to participate in his care and please do not hesitate to call if you have any question or concern. Sincerely, MD LAYO Fleming / SHELBY: [id number] /
--- NOTE | 2017-06-22 10:15 | AN ---
ANGIOGRAPHY REPORT DATE OF SERVICE: 06/22/2017 PERFORMING PHYSICIAN: Gurmeet Ambrsoe MD, Legal Executive. PROCEDURE PERFORMED: 1. An abdominal aortogram. 2. Bilateral lower extremities runoff. 3. Selective left common femoral artery angiogram. 4. Selective right common femoral artery angiogram. INDICATION: This is a pleasant 52-year-old gentleman who is known to have CAD as well as ischemic cardiomyopathy, who was experiencing severe left leg intermittent claudication. He underwent an arterial duplex study and that revealed an occluded left SFA. He was brought today for an abdominal aortogram and bilateral lower extremity runoff. COMPLICATION: None. LEVEL OF SEDATION: Moderate sedation length of 23 minutes. PROCEDURE DESCRIPTION: After obtaining an informed consent, the patient was brought to Cardiac Crop Supervisor. The right common femoral artery was cannulated using micropuncture technique and a micropuncture wire passed easily. Then I placed a 5-Welsh sheath in the right common femoral artery. After that, I did an abdominal aortogram and bilateral lower extremities runoff using 5-Welsh pigtail catheter. The catheter was initially placed at the level of the renal arteries and it was pulled into above the bifurcation of the aorta to right and left common iliac artery. After that, I did select the left common femoral artery using 5-Welsh RIM catheter with 0.35 Advantage wire. Then I also did inject through the sheath in the right common femoral artery. The procedure was completed without any complication. PERIPHERAL ANGIOGRAM: 1. The abdominal aorta appeared to be calcified with mild disease only. 2. COMMON ILIAC ARTERIES: The right and left common iliac arteries appear to have mild disease only. 3. EXTERNAL ILIAC ARTERIES: The right and left external iliac arteries appear to have mild disease only. 4. INTERNAL ILIAC ARTERIES: The right internal iliac artery is patent and the left internal iliac artery is occluded. 5. COMMON FEMORAL ARTERIES: The right and left common femoral arteries are patent. 6. PROFUNDA: The right and left profunda are patent as well. 7. SFA: The right SFA is angiographically normal. The left SFA has an ostial lesion appears to be in the range of 70%. Then, the SFA is diffusely diseased up to about 100% occlusion in the midportion and reconstitution by the Anthony canal. 8. POPLITEAL: The right and left popliteal appeared to have mild disease only. 9. BELOW THE KNEE: On the right side, there is only one vessel runoff below the knee with PT. On the left side, AT, PT, and peroneal are occluded. CONCLUSION: 1. Mild to moderate aortoiliac disease. 2. Occluded mid left SFA and reconstitutes by the popliteal in the Anthony canal. 3. Severe [id number] disease, bilaterally. POSTPROCEDURE MANAGEMENT: The patient will be scheduled to undergo a COLLECTION COORDINATOR of the left SFA. LAYO / SKINNYN: [id number] /
[2017-06-22 14:12] VITALS: BP 95/60; PULSE 85; RESP 18
--- NOTE | 2017-06-23 12:16 | IR ---
EXAMINATION TYPE: IR angio abdominal w runoff DATE OF EXAM: 06/22/2017 CLINICAL HISTORY: Peripheral vascular disease TECHNIQUE: Fluoroscopy. COMPARISON: None. FINDINGS: Fluoroscopic guidance was provided during abdominal aorta angiogram with lower extremity p rocedure performed by Dr. Ambrose. A total of 4.7 minutes of fluoroscopic time was utilized during the procedure and 11 cine runs are acquired and sent to PACS. There is accessed via right groin. Please r efer to procedure note for further details as I was not present nor performed procedure. IMPRESSION: As Above.
== END 2017-06-22 16:00 | disposition home or self-care (01) ==
LOC: CATHCVL 07:39
PROVIDERS: ATTEND Internal Medicine Interventional Cardiology
DX: I70.212 Atherosclerosis of native arteries of extremities with intermittent claudication, left leg (principal); I25.10 Atherosclerotic heart disease of native coronary artery without angina pectoris; I10 Essential (primary) hypertension; F17.210 Nicotine dependence, cigarettes, uncomplicated; I25.5 Ischemic cardiomyopathy; E78.5 Hyperlipidemia, unspecified; Z95.5 Presence of coronary angioplasty implant and graft; I25.2 Old myocardial infarction; E11.9 Type 2 diabetes mellitus without complications; Z79.84 Long term (current) use of oral hypoglycemic drugs; Z79.02 Long term (current) use of antithrombotics/antiplatelets; Z79.82 Long term (current) use of aspirin; Z79.899 Other long term (current) drug therapy
CPT/HCPCS: 36246; 75625; 75716; C1894; C1769 ×4; S4990; J2001; J2250; Q9967; J1170

== ENCOUNTER 2017-07-27 11:56 | Day surgery (SDC) | payer OTHER ==
[2017-07-26 08:34] VITALS: BMI 24.8
[~2017-07-27 11:56] MED LIST changes: -ALPRAZolam 0.25 MG TAB PO PRN; -ASPIRIN 325 MG TAB PO STA
[2017-07-27] MEDS ORDERED: ALPRAZolam 0.25 MG TAB ONE (12:18)
[2017-07-27 12:46] LABS: Anion Gap 14 mmol/L; Blood Urea Nitrogen 11 mg/dL (9-20); Calcium 10.1 mg/dL (8.4-10.2); Carbon Dioxide 26 mmol/L (22-30); Chloride 104 mmol/L (98-107); Glucose 123 mg/dL (74-99); Potassium 4.1 mmol/L (3.5-5.1); Sodium 144 mmol/L (137-145)
[2017-07-27 12:48] LABS: Basophils # (A) 0.1 k/uL (0-0.2); Basophils % (A) 1 %; Eosinophils # (A) 0.3 k/uL (0-0.7); Eosinophils % (A) 3 %; HCT 43.9 % (39.0-53.0); HGB 14.9 gm/dL (13.0-17.5); Lymphocytes # (A) 3.3 k/uL (1.0-4.8); Lymphocytes % (A) 32 %; MCH 31.2 pg (25.0-35.0); MCHC 33.8 g/dL (31.0-37.0); MCV 92.1 fL (80.0-100.0); Mean Platelet Volume 7.3; Monocytes # (A) 0.5 k/uL (0-1.0); Monocytes % (A) 5 %; Neutrophils # (A) 5.9 k/uL (1.3-7.7); Neutrophils % (A) 58 %; Platelet Count 273 k/uL (150-450); RBC 4.77 m/uL (4.30-5.90); RDW 12.7 % (11.5-15.5); WBC 10.1 k/uL (3.8-10.6)
[2017-07-27 13:07] LABS: Glucose,Whole Blood 115 mg/dL (75-99)
[2017-07-27] MEDS ORDERED: LIDOCAINE 2% INJ 20 MG/ML SQ ONE (14:19)
[2017-07-27] MEDS ORDERED: MIDAZOLAM 2 MG/2 ML VIAL IV ONE (14:20)
[2017-07-27] MEDS: fentaNYL (PF) 50 MCG/ML 2 ML AMP IV ONE ×2 (14:24→14:55)
[2017-07-27] MEDS: HEPARIN SODIUM 1,000 UN/ML (10ML VL) IV ONE ×3 (14:32→15:41)
[2017-07-27] MEDS: HYDROmorphone 2 MG/ML 1 ML SYRINGE IV ONE ×2 (14:32→14:40)
[2017-07-27] MEDS: NITROGLYCERIN 1000MCG/10ML SYRINGE INTRAARTER ONE ×3 (15:48→15:56)
[2017-07-27] MEDS: niCARdipine Syringe (1,000 mcg/10 mL) INTRAARTER ONE ×2 (15:48→16:09)
[2017-07-27] MEDS ORDERED: CLOPIDOGREL 75 MG TAB PO ONE (16:03)
[2017-07-27] MEDS ORDERED: NITROGLYCERIN SL TABS 0.4 MG TAB SUBLINGUAL PRN (16:30)
[2017-07-27] MEDS ORDERED: SODIUM CHLORIDE 0.9% 1,000 ML IV SCH (16:30)
[2017-07-27] MEDS ORDERED: IODIXANOL 320 MG/ML 100 ML INTRAARTER ONE (16:34)
[2017-07-27] MEDS ORDERED: NICOTINE 21MG/24HR PATCH TRANSDERM STA (17:48)
[2017-07-27 17:53] LABS: Glucose,Whole Blood 183 mg/dL (75-99)
[2017-07-27 18:24] VITALS: TEMP 97.8
[2017-07-27 18:54] LABS: Basophils # (A) 0.1 k/uL (0-0.2); Basophils % (A) 1 %; Eosinophils # (A) 0.3 k/uL (0-0.7); Eosinophils % (A) 3 %; HGB 12.9 gm/dL (13.0-17.5); Lymphocytes # (A) 3.8 k/uL (1.0-4.8); Lymphocytes % (A) 35 %; MCHC 33.9 g/dL (31.0-37.0); MCV 91.4 fL (80.0-100.0); Mean Platelet Volume 8.2; Monocytes # (A) 0.6 k/uL (0-1.0); Monocytes % (A) 5 %; Neutrophils # (A) 5.9 k/uL (1.3-7.7); Neutrophils % (A) 54 %; Platelet Count 240 k/uL (150-450); RBC 4.16 m/uL (4.30-5.90); RDW 13.7 % (11.5-15.5); WBC 10.9 k/uL (3.8-10.6)
[2017-07-27 19:40] LABS: Anion Gap 9 mmol/L; Blood Urea Nitrogen 11 mg/dL (9-20); Calcium 9.1 mg/dL (8.4-10.2); Carbon Dioxide 30 mmol/L (22-30); Chloride 101 mmol/L (98-107); Glucose 180 mg/dL (74-99); Potassium 3.7 mmol/L (3.5-5.1); Sodium 140 mmol/L (137-145)
[2017-07-27] MEDS: METOPROLOL TARTRATE 25 MG TAB PO SCH (20:20)
[2017-07-27] MEDS: FUROSEMIDE 20 MG TAB PO SCH (20:37)
[2017-07-27] MEDS ORDERED: ATORVASTATIN 80 MG TAB PO SCH (21:00)
[2017-07-27] MEDS ORDERED: HYDROmorphone 2 MG/ML 1 ML SYRINGE IVP STA (21:01)
[2017-07-27 21:11] LABS: Glucose,Whole Blood 260 mg/dL (75-99)
[2017-07-27] MEDS ORDERED: ATROPINE SULFATE 0.1 MG/ML 10ML SYRINGE ONE (21:43)
--- NOTE | 2017-07-27 22:56 | LTR ---
DATE OF SURGERY: July 27, [address] Carpenter: Mr. John Da Silva underwent successful opening totally occluded left femoral artery with good angiographic results and without any complication. I will keep the patient overnight for discharge tomorrow morning. I want to thank you for allowing me to participate in his care and please do not hesitate to call if you have any question or concerns. Sincerely, LAYO / SHELBY: [id number] /
[2017-07-28] MEDS: HYDROcodone/APAP 5-325MG 1 EACH TAB PO PRN ×2 (04:24→09:25)
[2017-07-28 06:00] LABS: Glucose,Whole Blood 188 mg/dL (75-99)
[2017-07-28 06:44] VITALS: RESP 20
[2017-07-28] MEDS: FUROSEMIDE 20 MG TAB PO SCH (07:03)
[2017-07-28] MEDS ORDERED: INSULIN ASPART 100 UNIT/ML 1 ML 10 ML VIAL SQ SCH (07:30)
[2017-07-28] MEDS: METOPROLOL TARTRATE 25 MG TAB PO SCH (08:00)
[2017-07-28 08:07] VITALS: BP 130/82; PULSE 81
--- NOTE | 2017-07-28 08:39 | AN ---
ANGIOGRAPHY REPORT PERCUTANEOUS PERIPHERAL INTERVENTION DATE OF SERVICE: 07/27/2017 PERFORMING PHYSICIAN: Gurmeet Ambrose MD, clinical specialist vascular. PROCEDURE PERFORMED: 1. Selective left ragdj-vgn-kqfd angiogram. 2. Selective left popliteal angiogram. 3. Selective left SFA angiogram. 4. An atherectomy of the left SFA using the TurboHawk device with extraction of significant amount of plaque. 5. Balloon angioplasty of the left SFA. 6. Stenting of the left SFA using 6.0 x 120 and 6.0 x 60 Zilver PTX drug coated stents with good angiographic results. 7. Intravascular ultrasound IVUS of the left SFA. 8. Selective right common femoral artery angiogram. INDICATION: This is a pleasant 52-year-old gentleman who was experiencing left leg intermittent claudication and underwent a peripheral angiogram and that revealed an occluded left SFA. In view of that, he was brought today to undergo an intervention of the left SFA. APPROACH: Right common femoral artery. COMPLICATION: None. LEVEL OF SEDATION: Moderate with a sedation length of 1 hour and 50 minutes. PROCEDURE DESCRIPTION: After obtaining an informed consent, the patient was brought to the cardiac mechanical shop laborer. The right common femoral artery was cannulated using micropuncture technique, the micropuncture wire passed easily then I placed a 6-Cuban sheath in the right common femoral artery. After that, anticoagulation was initiated using heparin and the patient was given a weight-based heparin with continuous ACT monitoring during the procedure. Subsequently I did select the left SFA using an 0.035 Advantage wire with a 5-Cuban Rim catheter. After that, I did exchange my 11 cm 6-Cuban sheath into 55 cm 6-Cuban sheath using the Advantage wire. The tip of the sheath was parked at the level of the left common femoral artery. After that I was able to cross the chronic total occlusion of the left SFA using an 0.018 pope-tip Glidewire with the backup support of 0.018 CXI catheter. I was able to negotiate the chronic total occlusion and advance my catheter to the left popliteal. I did after that selective left popliteal angiogram to prove that I was in the true lumen. After that I did selective left romgl-hxn-jzve angiogram, selective left popliteal angiogram, selective left SFA angiogram as well. Subsequently I did atherectomy of the left SFA where I did atherectomy using the TurboHawk device and I was able to extract significant amount of plaque. After that, I did use 6 mm x 200 mm balloon and I did FRINGE WEAVER of the left SFA. The following angiogram showed inadequate angiographic results. The intravascular ultrasound showed significant dissection for the whole SFA. At that point, I decided to cover that with a stent. I deployed 2 Zilver PTX drug coated stents. The first one was 6.0 x 120 and the second one 6.0 x 60 mm. I did about 2 mm overlap between the 2 stents. After that I postdilated the stent using 5 mm balloon. Subsequently for the proximal left SFA I did drug coated balloon where I use 5.0 x 40 mm balloon and the following angiogram showed good angiographic results. There was an area distal to the stent in the left SFA and was by the left popliteal where it looks tight. I did balloon angioplasty using 4.0 40 mm drug coated balloon with the following angiogram showing adequate angiographic results. The procedure was completed without any complication. After that I did exchange my 55 cm 6-Cuban sheath into 11 cm 6-Cuban sheath using the Advantage wire. I did after that selective right common femoral artery angiogram. The procedure was completed without any complication. POSTPROCEDURE MANAGEMENT: 1. Dual anti-platelet therapy. 2. Risk factors modifications. 3. Follow up with the patient. MMODL / IJN: [id number] /
[2017-07-28] MEDS ORDERED: ASPIRIN 325 MG TAB PO SCH (09:00)
[2017-07-28] MEDS ORDERED: LISINOPRIL 2.5 MG TAB PO SCH (09:00)
[2017-07-28] MEDS ORDERED: SPIRONOLACTONE 25 MG TAB PO SCH (09:00)
[2017-07-28] MEDS ORDERED: ASPIRIN 81 MG PO SCH (09:00)
[2017-07-28] MEDS ORDERED: CLOPIDOGREL 75 MG TAB PO SCH ×2 (09:00)
--- NOTE | 2017-07-29 08:10 | DS ---
DISCHARGE SUMMARY DATE OF ADMISSION: 07/27/2017 DATE OF DISCHARGE: 07/28/2017 BRIEF HISTORY: This is a pleasant 52-year-old gentleman who was admitted to the hospital and underwent successful crossing chronic total occlusion of the left superficial femoral artery along with atherectomy and stenting of the left SFA with good angiographic results and without any complication. The procedure was performed from the right groin which is soft and nontender and without any bruises. The patient is going to be discharged home on dual anti-platelet therapy and I will follow up with the patient as an outpatient. LAYO / SKINNYN: [id number] /
--- NOTE | 2017-07-29 14:22 | IR ---
Fluoroscopy HISTORY: Peripheral vascular occlusive disease 41.5 minutes fluoroscopy time supplied to the referring clinician. 912 intraoperative C-arm images d ocument the procedure. See dictated report from cardiology.
== END 2017-07-28 10:28 | disposition home or self-care (01) ==
LOC: CATHCVL 11:56 → 6SEL 17:19 → CATHCVL 07-28 10:28
PROVIDERS: ATTEND Internal Medicine Interventional Cardiology
DX: I70.212 Atherosclerosis of native arteries of extremities with intermittent claudication, left leg (principal); I70.92 Chronic total occlusion of artery of the extremities; I25.10 Atherosclerotic heart disease of native coronary artery without angina pectoris; I10 Essential (primary) hypertension; F17.210 Nicotine dependence, cigarettes, uncomplicated; Z95.5 Presence of coronary angioplasty implant and graft; I25.5 Ischemic cardiomyopathy; I25.2 Old myocardial infarction; E78.2 Mixed hyperlipidemia; E11.9 Type 2 diabetes mellitus without complications; Z79.84 Long term (current) use of oral hypoglycemic drugs; Z79.02 Long term (current) use of antithrombotics/antiplatelets; Z79.82 Long term (current) use of aspirin; Z79.899 Other long term (current) drug therapy
CPT/HCPCS: 37227; 37252; 80048; 82565; 85025; C1894 ×2; C1725 ×4; C1769 ×6; C1887; C1714; C1753; C2623; C1874 ×2; S4990; J2001; J2250; J1170; Q9967; J3010; J1644 ×2

== ENCOUNTER 2018-12-13 23:42 | Emergency (ER) | payer OTHER ==
[2018-12-14] MEDS ORDERED: DIPH,PERTUS(ACELL)TETVAC-LF 0.5 ML VIAL IM ONE (00:33)
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
[2018-12-14 00:47] LABS: Basophils # (A) 0.1 k/uL (0-0.2); Basophils % (A) 1 %; Eosinophils # (A) 0.1 k/uL (0-0.7); Eosinophils % (A) 1 %; HCT 42.8 % (39.0-53.0); HGB 14.1 gm/dL (13.0-17.5); Lymphocytes # (A) 2.6 k/uL (1.0-4.8); Lymphocytes % (A) 26 %; Mean Platelet Volume 7.8; Monocytes # (A) 0.6 k/uL (0-1.0); Monocytes % (A) 6 %; Neutrophils # (A) 6.5 k/uL (1.3-7.7); Neutrophils % (A) 65 %; Partial Thromboplastin Time 24.4 sec (22.0-30.0); Platelet Count 267 k/uL (150-450); Prothrombin Time 10.3 sec (9.0-12.0); RBC 4.69 m/uL (4.30-5.90); RDW 12.9 % (11.5-15.5)
[2018-12-14 00:50] LABS: MCV 91.1 fL (80.0-100.0)
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
[2018-12-14 01:10] LABS: Creatine Kinase 246 U/L (55-170)
[2018-12-14] MEDS ORDERED: MORPHINE SULFATE 2 MG/ML SYRINGE IVP STA (01:20)
[2018-12-14 01:21] LABS: Creatine Kinase MB 1.3 ng/mL (0.0-2.4); Troponin I <0.012 ng/mL (0.000-0.034)
--- NOTE | 2018-12-14 01:39 | CT ---
EXAM: CT Head Without Intravenous Contrast CLINICAL HISTORY: trauma TECHNIQUE: Axial computed tomography images of the head/brain without intravenous contrast. CTDI is 0.085, 0.085, 45.2, 11.1, 8.9, 8.9 mGy and DLP is 2643. 7 mGy-cm. This CT exam was performed using one or more of the following dose reduction techniques: automated exposure control, adjustment of the mA and/or kV according to patient size, and/or use of iterative reconstruction technique. COMPARISON: MRI 11/08/2016, CT 11/06/2016 FINDINGS: Brain: No acute intracranial hemorrhage, mass, or significant mass effect. Nonspecific areas of hypoattenuation in the periventricular white matter likely represent the sequela of chronic small vessel ischemic disease. Encephalomalacia in the bilateral temporal lobes, the left frontal lobe, and the right occipital lobe. Ventricles: Ventricular and sulcal prominence commensurate with the patient's age. Bones/joints: Unremarkable. No acute fracture. Soft tissues: Unremarkable. Sinuses: Mucosal thickening in the paranasal sinuses. Mastoid air cells: Unremarkable. IMPRESSION: No acute intracranial hemorrhage or calvarial fracture. EXAM: CT Cervical Spine Without Intravenous Contrast CLINICAL HISTORY: trauma TECHNIQUE: Axial computed tomography images of the cervical spine without intravenous contrast. CTDI is 0.085, 0.085, 45.2, 11.1, 8.9, 8.9 mGy and DLP is 2643.7 mGy-cm. This CT exam was performed using one or more of the following dose reduction techniques: automated exposure control, adjustment of the mA and/or kV according to patient size, and/or use of iterative reconstruction technique. COMPARISON: No relevant prior studies available. FINDINGS: Vertebrae: No acute fracture or malalignment. Straightening of the normal cervical lordosis. Discs/spinal canal/neural foramina: Disc height loss, osteophytes, uncovertebral spurs, and facet arthropathy. Bilateral neural foraminal stenosis at C5-C6 and C6-C7. No significant osseous spinal stenosis. Soft tissues: Unremarkable. IMPRESSION: No acute fracture or malalignment.
--- NOTE | 2018-12-14 01:51 | CT ---
EXAM: CT Chest With Intravenous Contrast CLINICAL HISTORY: trauma TECHNIQUE: Axial computed tomography images of the chest with intravenous contrast. CTDI is 0.085, 0.085, 45.2, 11.1, 8.9, 8.9 mGy and DLP is 2643.7 mGy-cm. This CT exam was performed using one or more of the following dose reduction techniques: automated exposure control, adjustment of the mA and/or kV according to patient size, and/or use of iterative reconstruction technique. COMPARISON: No relevant prior studies available. FINDINGS: Lungs: Unremarkable. No mass. No consolidation. Pleural space: Unremarkable. No pneumothorax. No significant effusion. Heart: Calcification of the coronary arteries and thoracic aorta. No significant pericardial effusion. Mediastinum: Small hiatal hernia. Bones/joints: Unremarkable. No acute fracture. No dislocation. Soft tissues: Unremarkable. Vasculature: Stable aneurysmal dilatation of the root of the thoracic aorta, measuring 4 cm. No thoracic aortic dissection. Lymph nodes: Unremarkable. IMPRESSION: No CT evidence of acute traumatic thoracic injury. EXAM: CT Abdomen and Pelvis With Intravenous Contrast CLINICAL HISTORY: trauma TECHNIQUE: Axial computed tomography images of the abdomen and pelvis with intravenous contrast. CTDI is 0.085, 0.085, 45.2, 11.1, 8.9, 8.9 mGy and DLP is 2643.7 mGy-cm. This CT exam was performed using one or more of the following dose reduction techniques: automated exposure control, adjustment of the mA and/or kV according to patient size, and/or use of iterative reconstruction technique. COMPARISON: No relevant prior studies available. FINDINGS: ABDOMEN: Liver: Lobulated liver is upper limits of normal in size. No focal hepatic lesions. Gallbladder and bile ducts: Unremarkable. No calcified stones. Pancreas: Unremarkable. Spleen: Unremarkable. Adrenals: Thickened left adrenal gland. Kidneys and ureters: Bilateral renal cortical scar. Small hypoattenuating left renal lesions, possibly cysts. No hydronephrosis. Stomach and bowel: Unremarkable. Bowel is nondilated. PELVIS: Appendix: No findings to suggest acute appendicitis. Bladder: Unremarkable. Reproductive: Unremarkable as visualized. ABDOMEN and PELVIS: Intraperitoneal space: Unremarkable. No free air. Bones/joints: No acute osseous abnormality. Soft tissues: Unremarkable. Vasculature: Aortic atherosclerosis. No abdominal aortic aneurysm. Lymph nodes: Unremarkable. IMPRESSION: No radiographic evidence of acute traumatic injury in the abdomen or pelvis.
[2018-12-14 02:02] LABS: ALT 26 U/L (21-72); AST 28 U/L (17-59); African American GFR (CKD) >90 (>60 ml/min/1.73 sqM); Alcohol <10 mg/dL; Alkaline Phosphatase 66 U/L (38-126); Amylase 38 U/L (30-110); Anion Gap 6 mmol/L; Blood Urea Nitrogen 8 mg/dL (9-20); Calcium 9.4 mg/dL (8.4-10.2); Carbon Dioxide 27 mmol/L (22-30); Chloride 104 mmol/L (98-107); Glucose 109 mg/dL (74-99); Lipase 51 U/L (23-300); Potassium 3.8 mmol/L (3.5-5.1); Sodium 137 mmol/L (137-145); Total Bilirubin 0.5 mg/dL (0.2-1.3); Total Protein 6.7 g/dL (6.3-8.2)
--- NOTE | 2018-12-14 02:03 | XR ---
EXAM: XR Left Forearm, 2 Views CLINICAL HISTORY: Pain TECHNIQUE: Frontal and lateral views of the left forearm. COMPARISON: No relevant prior studies available. FINDINGS: Bones/joints: No acute fracture or malalignment. Soft tissues: Unremarkable. IMPRESSION: No acute fracture or malalignment.
--- NOTE | 2018-12-14 02:04 | XR ---
EXAM: XR Left Wrist Complete, 3 or More Views CLINICAL HISTORY: Pain TECHNIQUE: Frontal, lateral and oblique views of the left wrist. COMPARISON: No relevant prior studies available. FINDINGS: Bones/joints: No acute fracture. Lucent foci in the scaphoid are nonspecific and may be degenerative. Widening of the scapholunate interval. Soft tissues: Unremarkable. No radiopaque foreign body. IMPRESSION: No acute fracture. Widening of the scapholunate interval can be seen in the setting of ligamentous injury.
--- NOTE | 2018-12-14 02:05 | XR ---
EXAM: XR Left Elbow Complete, 3 or More Views CLINICAL HISTORY: Pain TECHNIQUE: Frontal, lateral and oblique views of the left elbow. COMPARISON: No relevant prior studies available. FINDINGS: Bones/joints: No acute fracture or malalignment. Mild degenerative changes. Soft tissues: Unremarkable. IMPRESSION: No acute fracture or malalignment.
[2018-12-14] MEDS ORDERED: MORPHINE SULFATE 4 MG/ML SYRINGE IVP STA (02:11)
[2018-12-14 02:39] LABS: Appearance,Urine Clear (Clear); Bilirubin,Urine Negative (Negative); Blood,Urine Negative (Negative); Color,Urine Light Yellow; Glucose,Urine (UA) Negative (Negative); Ketones,Urine Negative (Negative); Leukocyte Esterase,Urine Negative (Negative); Nitrite,Urine Negative (Negative); Protein,Urine Negative (Negative); Specific Gravity,Urine 1.017 (1.001-1.035); Urobilinogen,Urine <2.0 mg/dL (<2.0)
--- NOTE | 2018-12-14 02:42 | XR ---
EXAM: XR Left Hand Complete, 3 or More Views CLINICAL HISTORY: Pain TECHNIQUE: Frontal, lateral and oblique views of the left hand. COMPARISON: No relevant prior studies available. FINDINGS: Limitations: Evaluation of the proximal phalanx of the fourth fingers limited by a ring. Bones/joints: No acute fracture or malalignment. Soft tissues: Unremarkable. No radiopaque foreign body. IMPRESSION: No acute fracture or malalignment.
[2018-12-14 02:57] LABS: Amphetamine Screen,Urine Not Detected (NotDetected); Barbiturate Screen,Urine Not Detected (NotDetected); Benzodiazepines Screen,Urine Not Detected (NotDetected); Cocaine Screen,Urine Not Detected (NotDetected); Methadone Screen, Urine Not Detected (NotDetected); Opiate Screen,Urine Detected (NotDetected); Oxycodone Screen, Urine Not Detected (NotDetected); Phencyclidine Screen,Urine Not Detected (NotDetected); Tricyclic Antidepressant,Urine Not Detected (NotDetected); Urn Cannabinoid Scrn Detected (NotDetected)
[2018-12-14] MEDS ORDERED: LIDOCAINE 1% INJ 10MG/ML (20 ML MDV) SQ ONE (02:58)
[2018-12-14 04:49] VITALS: BP 117/85; PULSE 80; RESP 15; TEMP 97.5
== END 2018-12-14 03:47 | disposition home or self-care (01) ==
LOC: EC 23:42
DX: S63.502A Unspecified sprain of left wrist, initial encounter (principal); S61.213A Laceration without foreign body of left middle finger without damage to nail, initial encounter; R07.9 Chest pain, unspecified; I25.10 Atherosclerotic heart disease of native coronary artery without angina pectoris; E11.9 Type 2 diabetes mellitus without complications; E78.5 Hyperlipidemia, unspecified; I25.2 Old myocardial infarction; G40.909 Epilepsy, unspecified, not intractable, without status epilepticus; F17.200 Nicotine dependence, unspecified, uncomplicated; Z86.73 Personal history of transient ischemic attack (TIA), and cerebral infarction without residual deficits; Z95.818 Presence of other cardiac implants and grafts; Z79.82 Long term (current) use of aspirin; Z79.84 Long term (current) use of oral hypoglycemic drugs; Z79.899 Other long term (current) drug therapy; Z23 Encounter for immunization; V40.5XXA Car driver injured in collision with pedestrian or animal in traffic accident, initial encounter; Y92.410 Unspecified street and highway as the place of occurrence of the external cause
CPT/HCPCS: 36415; 86900; 86901; 80053; 82150; 82550; 82553; 83605; 83690; 84484; 85025; 85610; 85730; 86850; 81003; 80306; 72170; 73080; 73090; 73110; 73130; 71045; 72125; 70450; 71260; 74177; 90715; 99284; 29125; 12001; 96374; 96376; 90471; G0480; J2270 ×2; J2001; Q9967; 80320

== ENCOUNTER → 2020-08-05 | Outpatient (CLI) | payer OTHER ==
--- NOTE | 2020-08-06 13:38 | MM ---
Reason for exam: clinical finding. Physical Findings: Nurse Summary: 2cm nodule in the right breast at nipple (nurse dw). MG Diagnostic Mammo w CAD MARY ANN Bilateral CC and MLO view(s) were taken. There are scattered fibroglandular densities. Bilateral retroareolar densities may reflect gynecomastia, greater in the right breast. These results were verbally communicated with the patient and result sheet given to the patient on 08/05/20. ASSESSMENT: Incomplete: need additional imaging evaluation, BI-RAD 0 RECOMMENDATION: Ultrasound of both breasts.
--- NOTE | 2020-08-06 13:39 | USB ---
Reason for exam: additional evaluation requested from abnormal screening. US Breast Workup Limited MARY ANN Technologist: Felecia Mays Right limited breast ultrasound including focal area of concern, retroareolar and axilla demonstrates a 2.1 x 2.4 x 1.0cm hypoechoic lesion at the posterior nipple. Left limited breast ultrasound including focal area of concern, retroareolar and axilla demonstrates a 0.6 x 0.8 x 0.5cm hypoechoic lesion at the posterior nipple. Probable gynecomastia. These results were verbally communicated with the patient and result sheet given to the patient on 08/05/20. ASSESSMENT: Benign, BI-RAD 2 RECOMMENDATION: Clinical management of both breasts. Manage patient on a clinical basis.
== END | disposition home or self-care (01) ==
LOC: RADMAMWWP 14:18
PROVIDERS: ATTEND Family Medicine
DX: N63.10 Unspecified lump in the right breast, unspecified quadrant (principal); N63.20 Unspecified lump in the left breast, unspecified quadrant; R92.8 Other abnormal and inconclusive findings on diagnostic imaging of breast
CPT/HCPCS: 77066

== ENCOUNTER 2020-09-04 06:51 | Day surgery (SDC) | payer OTHER ==
[2020-09-01 13:37] VITALS: BMI 25.8
[2020-09-04] MEDS ORDERED: LIDOCAINE 1% (10MG/ML) FOR IV START INTRADERMA PRN (07:00)
[2020-09-04] MEDS: LACTATED RINGERS 1,000 ML IV SCH ×2 (07:28→07:50)
[2020-09-04 07:42] VITALS: TEMP 97.8
[2020-09-04 08:04] LABS: Glucose,Whole Blood 145 mg/dL (75-99)
[2020-09-04] MEDS ORDERED: PROPOFOL 10 MG/ML 20 ML VIAL IV ONE (08:06)
[2020-09-04] MEDS ORDERED: LACTATED RINGERS 1,000 ML IV ONE (08:56)
--- NOTE | 2020-09-04 09:22 | P.PCN ---
Date of Procedure: 09/04/20 Description of Procedure: BRIEF HISTORY: Patient is a 55-year-old male presenting for outpatient colonoscopy for positive Cologard. No prior colonoscopy. No family history as patient was adopted. No change in bowel habits. PROCEDURE PERFORMED: Colonoscopy with polypectomy. PREOPERATIVE DIAGNOSIS: Positive Cologard, no prior colonoscopy. ESTIMATED BLOOD LOSS: Minimal. IV sedation per Anesthesia. PROCEDURE: After informed consent was obtained, the patient, was brought into the endoscopy unit. IV sedation was administered by Anesthesia under continuous monitoring. Digital rectal examination was normal. Initially the Olympus CF-190 flexible video colonoscope was then inserted in the rectum, gradually advanced into the cecum without any difficulty. Careful examination was performed as the scope was gradually being withdrawn. Ileocecal valve and the appendiceal orifice were vi sualized and appeared normal. Prep was fair, with a large amount of liquid stool throughout the colon with some solid component. Mucosa of the cecum, ascending colon, transverse colon, descending colon, sigmoid colon, and rectum appeared normal. A few scattered diverticula noted in the sigmoid colon. 5 mm ascending polyp removed with cold snare polypectomy. 2 transverse colon polyps measuring 3 and 4 mm in size removed with cold snare polypectomy. Large flat 2 cm transverse colon polyp removed in piecemeal fashion with cold snare polypectomy, with 2 mL of ink injected just distal to the polyp. Pedunculated 13 mm sigmoid colon polyp removed with hot snare polypectomy. Retroflexion was performed in the rectum and no lesions were seen. The patient tolerated the procedure well. IMPRESSION: Large flat transverse colon polyp removed in piecemeal fashion with cold snare polypectomy. Tattoo placed just distal to the polyp. Pedunculated sigmoid colon polyp removed with hot snare polypectomy. Procedure polypectomy of polyps from the ascending colon and transverse colon 2. Mild sigmoid diverticulosis. RECOMMENDATIONS: Findings of this examination were discussed with the patient and his family. Okay to resume diet. Okay to resume medications except for Plavix which should be held for an additional 72 hours. Only pathology from polypectomies. Recommend repeat colonoscopy in 3-6 months due to piecemeal resection of a large polyp.
[2020-09-04 09:39] VITALS: BP 124/75; PULSE 61; RESP 16
== END 2020-09-04 10:09 | disposition home or self-care (01) ==
LOC: ORWHC2ENDO 06:51
PROVIDERS: ATTEND Internal Medicine
DX: D12.2 Benign neoplasm of ascending colon (principal); D12.3 Benign neoplasm of transverse colon; D12.5 Benign neoplasm of sigmoid colon; K57.30 Diverticulosis of large intestine without perforation or abscess without bleeding; I25.10 Atherosclerotic heart disease of native coronary artery without angina pectoris; I10 Essential (primary) hypertension; Z98.890 Other specified postprocedural states; Z86.718 Personal history of other venous thrombosis and embolism; Z95.5 Presence of coronary angioplasty implant and graft; F17.210 Nicotine dependence, cigarettes, uncomplicated; E11.9 Type 2 diabetes mellitus without complications; F41.9 Anxiety disorder, unspecified; Z86.73 Personal history of transient ischemic attack (TIA), and cerebral infarction without residual deficits; Z79.02 Long term (current) use of antithrombotics/antiplatelets; Z79.84 Long term (current) use of oral hypoglycemic drugs; Z79.82 Long term (current) use of aspirin; Z79.899 Other long term (current) drug therapy
CPT/HCPCS: 45381; 45385; 88305; J2704; 44404; 45380

== ENCOUNTER → 2020-09-19 | Outpatient (CLI) | payer OTHER ==
[2020-09-19 14:40] VITALS: BP 124/75; PULSE 62; RESP 18; TEMP 98.4
--- NOTE | 2020-09-19 15:10 | P.GSHP ---
History of Present Illness H&P Date: 09/19/20 Chief Complaint: right bresat mass John is a 55 year old with a lump in his right breast. It has been present for about three months. It is painful if bumped. He has nothing of concern in the other breast. It has not changed in size. The patient and 2to21 had a bilateral mammogram after which it was recommended that he have ultrasound of both breasts. He had a bilateral ultrasound performed and 2to21. This revealed a 2.1 x 2.4 cm hypoechoic lesion posterior to the right nipple complex. In the left breast there was a 0.6 x 0.8 cm hypoechoic lesion at the posterior nipple complex. The feeling was probable gynecomastia clinical management of both breasts. He has not noted any lumps or masses in his testicles. He uses marijuana daily. He has been using it for many years. 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 left femoral artery/ occluded stint in LAD occluded; 2 0r 3 other stints placed Medical History: 2 IA 3CVA 1 seizure diabetes vascular disease Social History: smoke: 1 1/2 PPD alcohol: none drugs: Marijuana daily - Constitutional Constitutional: Denies chills, Denies fever - EENT Eyes: denies blurred vision, denies pain Ears: deny: decreased hearing, tinnitus Ears, nose, mouth and throat: Denies headache, Denies sore throat - Breasts Breasts: bilateral: as per HPI - Cardiovascular Comment: multiple stints, IA several times Cardiovascular: Denies chest pain, Denies shortness of breath - Respiratory Respiratory: Denies cough, Denies 7 - Gastrointestinal Gastrointestinal: Denies abdominal pain, Denies diarrhea, Denies nausea, Denies vomiting - Genitourinary (Male) Genitourinary: Denies dysuria, Denies hematuria - Musculoskeletal Musculoskeletal: Denies myalgias - Integumentary Integumentary: Denies pruritus, Denies rash - Neurological Comment: CVA Neurological: Denies numbness, Denies weakness - Psychiatric Psychiatric: Reports anxiety, Reports depression - Endocrine Endocrine: Reports fatigue, Denies weight change - Hematologic/Lymphatic Comment: none - Allergic/Immunologic Allergic/Immunologic: Reports as per HPI Past Medical History Past Medical History: Coronary Artery Disease (CAD), CVA/TIA, Diabetes Mellitus, Hyperlipidemia, Hypertension, Myocardial Infarction (IA), Seizure Disorder, Vascular Disorder Additional Past Medical History / Comment(s): had one seizure only, 2009 TIA, 2017 "CVA/IA/SEIZURE COMBINATION." "FOUND LT LEG BLOCKAGE." states had left femoral artery stent and now is blocked, states 2 heart stents, one in LAD is blocked, "75 % of heart muscle is -low ejection fraction" Last Myocardial Infarction Date:: 11-06-16 History of Any Multi-Drug Resistant Organisms: None Reported Past Surgical History: Heart Catheterization With Stent Additional Past Surgical History / Comment(s): pilonidal cyst excised x2, aortogram, left femoral artery stent Past Anesthesia/Blood Transfusion Reactions: No Reported Reaction Additional Past Anesthesia/Blood Transfusion Reaction / Comment(s): ADOPTED, NO FAMILY HX., pt states after past cvl procedure had large bruises accross groin area and severe back pain. Date of Last Stent Placement:: 2016 Past Psychological History: Anxiety Smoking Status: Current every day smoker Past Alcohol Use History: Rare Additional Past Alcohol Use History / Comment(s): 1 and 1/2 ppd, started smoking age 15 Past Drug Use History: Marijuana Additional Drug Use History / Comment(s): daily use, instructed to hold 24 hrs the day before procedure - Past Family History Father Family Medical History: Unable to Obtain Additional Family Medical History / Comment(s): adopted Mother Family Medical History: Unable to Obtain Additional Family Medical History / Comment(s): adopted Medications and Allergies Home Medications Medication Instructions Recorded Confirmed Type Aspirin EC [Ecotrin Low Dose] 81 mg PO DAILY 11/06/16 09/19/20 History Clopidogrel [Plavix] 75 mg PO DAILY #30 tab 11/11/16 09/19/20 Rx Metoprolol Tartrate [Lopressor] 25 mg PO BID #60 tab 11/11/16 09/19/20 Rx Nitroglycerin Sl Tabs [Nitrostat] 0.4 mg SUBLINGUAL Q5M PRN #25 tab 11/11/16 09/19/20 Rx Spironolactone [Aldactone] 25 mg PO DAILY #30 tab 05/11/17 03/19/21 Rx lisinopriL [Zestril] 2.5 mg PO DAILY #30 tab 11/11/16 09/19/20 Rx levETIRAcetam [Keppra Xr] 750 mg PO BID 12/09/16 09/19/20 History Furosemide [Lasix] 20 mg PO DAILY 01/28/17 09/19/20 History metFORMIN HCL [Glucophage] 1,000 mg PO BID 07/12/17 09/19/20 History ALPRAZolam [Xanax] 0.5 mg PO DIRECTED PRN 10/12/18 09/19/20 History Atorvastatin [Lipitor] 80 mg PO DAILY 12/08/18 09/19/20 History Allergies Allergy/AdvReac Type Severity Reaction Status Date / Time No Known Allergies Allergy Verified 09/19/20 14:33 Surgical - Exam Vital Signs Temp Pulse Resp BP Pulse Ox 98.4 F 62 18 124/75 97 09/19/20 14:34 09/19/20 14:34 09/19/20 14:34 09/19/20 14:34 09/19/20 14:34 BMI 25.1 - General no distress - Eyes normal ocular movement - ENT poor dentition - Neck no masses, trachea midline - Respiratory normal expansion, normal respiratory effort - Cardiovascular Heart Sounds: normal: S1, S2 - Abdomen Abdomen: soft, non tender, no guarding, no rigid, no rebound - Genitourinary no masses in testicles testicles present - Musculoskeletal normal gait - Psychiatric oriented to time Examination: Right breast: multipositional exam aproximally 2 cm tender lesion behind nipple areolar complex consistent with gynecomastia Right axilla: No adenopathy of concern Left breast: Multiple positional exam no discrete dominant masses or nodules of concern Left axilla: No adenopathy of concern Results Ultrasound results reviewed Assessment and Plan Assessment: Impression: 1. Right breast Mass/believed to be gynecomastia 2. Abnormal ultrasound bilateral breast 3. Recent mammogram and ultrasound consistent with gynecomastia 4.patient uses marijunia daily 5. no testicular masses 6. nicotine dependance 7. caffeine daily Plan: 1. Patient has opted not to have any interventional biopsy of the breast mass at this time, he does not want any surgical intervention at this time we'll follow conservatively 2. Bilateral ultrasound in 6 months with physician exam at that time 3. We discussed that the marijuana, nicotine, and caffeine and lifestyle modification CC: Dr. Carpenter Encounter 35 minutes time spent physical exam, review records, and counselling.
== END ==
LOC: WWCWWP 13:37
PROVIDERS: ATTEND Surgery
DX: N63.10 Unspecified lump in the right breast, unspecified quadrant (principal); F12.90 Cannabis use, unspecified, uncomplicated; F17.210 Nicotine dependence, cigarettes, uncomplicated; I25.10 Atherosclerotic heart disease of native coronary artery without angina pectoris; I63.9 Cerebral infarction, unspecified; E11.9 Type 2 diabetes mellitus without complications; E78.5 Hyperlipidemia, unspecified; I10 Essential (primary) hypertension; I25.2 Old myocardial infarction; G40.909 Epilepsy, unspecified, not intractable, without status epilepticus; Z79.84 Long term (current) use of oral hypoglycemic drugs

== ENCOUNTER 2020-12-08 06:47 | Day surgery (SDC) | payer OTHER ==
[2020-12-04 15:22] VITALS: BMI 25.1
[~2020-12-08 06:47] MED LIST changes: +LACTATED RINGERS 1,000 ML IV SCH; +LIDOCAINE 1% (10MG/ML) FOR IV START INTRADERMA PRN; -SODIUM CHLORIDE 0.9% 1,000 ML in EMPTY BAG 1 BAG IV ONE
[2020-12-08 07:28] VITALS: TEMP 97.6
[2020-12-08 07:31] LABS: Glucose,Whole Blood 135 mg/dL (75-99)
[2020-12-08] MEDS ORDERED: PROPOFOL 10 MG/ML 20 ML VIAL IV ONE (07:42)
[2020-12-08 08:29] VITALS: RESP 16
--- NOTE | 2020-12-08 08:31 | P.PCN ---
Date of Procedure: 12/08/20 Description of Procedure: BRIEF HISTORY: Patient is a 55-year-old male who presents for outpatient colonoscopy for colon polyps. The patient had a colonoscopy 3 months ago with multiple polyps removed including a large transverse colon polyp removed in piecemeal fashion. No family history is a patient was adopted. PROCEDURE PERFORMED: Colonoscopy with polypectomy. PREOPERATIVE DIAGNOSIS: Colon polyps, personal history of colon polyps removed in piecemeal fashion, family history unknown. ESTIMATED BLOOD LOSS: Minimal. IV sedation per Anesthesia. PROCEDURE: After informed consent was obtained, the patient, was brought into the endoscopy unit. IV sedation was administered by Anesthesia under continuous monitoring. Digital rectal examination was normal. Initially the Olympus CF-190 flexible video colonoscope was then inserted in the rectum, gradually advanced into the cecum without any difficulty. Careful examination was performed as the scope was gradually being withdrawn. Ileocecal valve and the appendiceal orifice were visualized and appeared normal. Prep was excellent. Mucosa of the cecum, ascending colon, transverse colon, descending colon, sigmoid colon, and rectum appeared normal. 2 polyps measuring 3 mm and 4 mm in size removed from the ascending colon splenic flexure with cold snare polypectomy. Multiple pieces of tissue taken with cold forcep polypectomy from the site of prior transverse colon polypectomy to remove what appears to be remaining tissue from prior polypectomy. A few scattered polyps noted in left colon. Retroflexion was performed in the rectum and no lesions were seen, low-grade internal hemorrhoids. The patient tolerated the procedure well. IMPRESSION: 2 flat polyps removed with cold snare polypectomy from the ascending colon and splenic flexure. Evidence of some remaining polypoid tissue at the site of prior transverse colon polypectomy removed with cold forcep polypectomy. Mild left colonic diverticulosis. RECOMMENDATIONS: Findings of this examination were discussed with the patient and his family. Ok ay to resume diet. Okay to resume medications. Await pathology from polypectomy. Recommend repeat colonoscopy in one year for history of colon polyps. Follow up in primary care physician's office as previously scheduled..
[2020-12-08 08:42] VITALS: BP 109/73; PULSE 70
== END 2020-12-08 09:10 | disposition home or self-care (01) ==
LOC: ORWHC2ENDO 06:47
PROVIDERS: ATTEND Internal Medicine
DX: Z12.11 Encounter for screening for malignant neoplasm of colon (principal); D12.2 Benign neoplasm of ascending colon; D12.3 Benign neoplasm of transverse colon; F17.210 Nicotine dependence, cigarettes, uncomplicated; E78.5 Hyperlipidemia, unspecified; I25.10 Atherosclerotic heart disease of native coronary artery without angina pectoris; E11.9 Type 2 diabetes mellitus without complications; Z86.73 Personal history of transient ischemic attack (TIA), and cerebral infarction without residual deficits; R56.9 Unspecified convulsions; I10 Essential (primary) hypertension; I25.2 Old myocardial infarction; Z95.5 Presence of coronary angioplasty implant and graft; Z79.899 Other long term (current) drug therapy
CPT/HCPCS: 88305; 45380; 45385; J2704

== ENCOUNTER → 2022-08-04 | Outpatient (CLI) | payer OTHER ==
--- NOTE | 2022-08-04 15:45 | USB ---
Reason for Exam: Clinical finding. Technique: Method: Whole Breast Handheld. Prior Study Comparison: 08/05/2020 Bilateral Diagnostic Mammogram, [facility]. 08/05/2020 Bilateral Diagnostic Ultrasound, [facility]. Findings: The whole breast of the left breast, the axilla of the left breast and the retroareolar of both breasts were scanned. There is a new solid mass within the retroareolar left breast measuring 2.3 x 1.5 cm. Tissue diagnosis is recommended. Overall Assessment: Suspicious, BI-RAD 4 Management: Ultrasound Core Biopsy of both breasts. A clinical breast exam by your physician is recommended on an annual basis and results should be correlated with mammographic findings. This exam should not preclude additional follow-up of suspicious palpable abnormalities. Results were given to the patient verbally at the time of exam. Electronically signed and approved by: Kendrick Charles M.D. Radiologis
--- NOTE | 2022-08-04 16:12 | US ---
EXAMINATION TYPE: US thyroid st tissue head/neck DATE OF EXAM: 08/04/2022 COMPARISON: 12/04/2018 CLINICAL HISTORY: SWELLING,MASS AND LUMP R22.1. Patient states having a palpable 1.5 months posterior left neck. TECHNIQUE: Grayscale ultrasound imaging of the left neck. FINDINGS: Area of concern scanned. Hyperechoic nonvascular oval lesion seen= 2.0 x 1.7 x 0.6 cm. IMPRESSION: Somewhat hypoechoic oval nonvascular lesion seen within the area of concern in the poste rior left neck. Finding is felt to correlate with a lesion on prior CTs dating back to 2010, etiology is uncertain but given stability over time is felt to be benign. If there remains concern consider t issue sampling.
== END | disposition home or self-care (01) ==
LOC: RADUSWWP 14:55
PROVIDERS: ATTEND Family Medicine
DX: N63.42 Unspecified lump in left breast, subareolar (principal); R22.1 Localized swelling, mass and lump, neck
CPT/HCPCS: 76536

== ENCOUNTER → 2022-09-16 | Outpatient (CLI) | payer OTHER ==
[2022-09-16 12:46] VITALS: BP 128/64; PULSE 67; RESP 18; TEMP 98.5
--- NOTE | 2022-09-16 13:09 | P.PN ---
Subjective Progress Note Date: 09/16/22 John is a 57 year old male who underwent an ultrasound-guided core biopsy of his left breast on . Pathology revealed fragments of keratin material with abscess, histiocytes, fibrosis/scar, and inflammation suggestive of ruptured epidermal inclusion cyst. 2122 underwent a left breast ultrasound. Revealed a solid mass 2.3 x 1.5 cm. Tissue diagnosis was recommended. This was done on . Approximately 2 years ago he complained of pain in his right breast and at that time a right breast mammogram and ultrasound were consistent with gynecomastia. He also had a left breast ultrasound at that time no biopsy was performed. John was doing well until approximately a month prior to the biopsy when he began to feel some nodularity in the left breast. The right breast was no longer bothering him. This led to the radiographic workup and biopsy. The patient states after the biopsy he had an infection and was treated with antibiotics. It was very painful after the biopsy. It is still hurting. The swelling has decreased. He has not had any fever or chills. 09-16-22 This time John is not complaining of any fever or chills. He states the area of nodularity has largely resolved. He is not complaining of any drainage from either breast. He continues to have drainage from his buttock. Cultures from 09-02-22 were (+) for gm - anerobes. These were from both the buttock and axilla. We treated him with Bactirm and he had resolution of his symptoms. 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/ occluded stint in LAD occluded; 2 0r 3 other stints placed bilateral buttock abscesses drained Medical History: 2 CT 3CVA 1 seizure diabetes vascular disease Social History: smoke: 1 1/2 PPD alcohol: none drugs: Marijuana daily - Constitutional Constitutional: Denies chills, Denies fever - EENT Eyes: denies blurred vision, denies pain Ears: deny: decreased hearing, tinnitus Ears, nose, mouth and throat: Denies headache, Denies sore throat - Breasts Breasts: bilateral: as per HPI - Cardiovascular Comment: multiple stints, CT several times Cardiovascular: Denies chest pain, Denies shortness of breath - Respiratory Respiratory: Denies cough - Gastrointestinal Gastrointestinal: Denies abdominal pain, Denies diarrhea, Denies nausea, Denies vomiting - Genitourinary (Male) Genitourinary: Denies dysuria, Denies hematuria - Musculoskeletal Musculoskeletal: Denies myalgias - Integumentary Integumentary: Denies pruritus, Denies rash - Neurological Comment: CVA Neurological: Denies numbness, Denies weakness - Psychiatric Psychiatric: Reports anxiety, Reports depression - Endocrine Endocrine: Reports fatigue, Denies weight change - Hematologic/Lymphatic Comment: none - Allergic/Immunologic Allergic/Immunologic: Reports as per HPI Past Medical History Past Medical History: Coronary Artery Disease (CAD), CVA/TIA, Diabetes Mellitus, Hyperlipidemia, Hypertension, Myocardial Infarction (CT), Seizure Disorder, Vascular Disorder Additional Past Medical History / Comment(s): had one seizure only, 2009 TIA, 2017 "CVA/CT/SEIZURE COMBINATION." "FOUND LT LEG BLOCKAGE." states had left femoral artery stent and now is blocked, states 2 heart stents, one in LAD is blocked, "75 % of heart muscle is -low ejection fraction" Last Myocardial Infarction Date:: 11-06-16 History of Any Multi-Drug Resistant Organisms: None Reported Past Surgical History: Heart Catheterization With Stent Additional Past Surgical History / Comment(s): pilonidal cyst excised x2, aortogram, left femoral artery stent Past Anesthesia/Blood Transfusion Reactions: No Reported Reaction Additional Past Anesthesia/Blood Transfusion Reaction / Comment(s): ADOPTED, NO FAMILY HX., pt states after past cvl procedure had large bruises accross groin area and severe back pain. Date of Last Stent Placement:: 2016 Past Psychological History: Anxiety Smoking Status: Current every day smoker Past Alcohol Use History: Rare Additional Past Alcohol Use History / Comment(s): 1 and 1/2 ppd, started smoking age 15 Past Drug Use History: Marijuana Additional Drug Use History / Comment(s): daily use, instructed to hold 24 hrs the day before procedure - Past Family History Father Family Medical History: Unable to Obtain Additional Family Medical History / Comment(s): adopted Mother Family Medical History: Unable to Obtain Additional Family Medical History / Comment(s): adopted Medications and Allergies Home Medications Medication Instructions Recorded Confirmed Type Aspirin EC [Ecotrin Low Dose] 81 mg PO DAILY 11/06/16 09/19/20 History Clopidogrel [Plavix] 75 mg PO DAILY #30 tab 11/11/16 09/19/20 Rx Metoprolol Tartrate [Lopressor] 25 mg PO BID #60 tab 11/11/16 09/19/20 Rx Nitroglycerin Sl Tabs [Nitrostat] 0.4 mg SUBLINGUAL Q5M PRN #25 tab 11/11/16 09/19/20 Rx Spironolactone [Aldactone] 25 mg PO DAILY #30 tab 11/11/16 09/19/20 Rx lisinopriL [Zestril] 2.5 mg PO DAILY #30 tab 11/11/16 09/19/20 Rx levETIRAcetam [Keppra Xr] 750 mg PO BID 12/09/16 09/19/20 History Furosemide [Lasix] 20 mg PO DAILY 01/28/17 09/19/20 History metFORMIN HCL [Glucophage] 1,000 mg PO BID 07/12/17 09/19/20 History ALPRAZolam [Xanax] 0.5 mg PO DIRECTED PRN 10/12/18 09/19/20 History Atorvastatin [Lipitor] 80 mg PO DAILY 12/08/18 09/19/20 History Allergies Allergy/AdvReac Type Severity Reaction Status Date / Time No Known Allergies Allergy Verified 09/19/20 14:33 Objective - Vital Signs Vital signs: Vital Signs Temp 98.3 F 09/02/22 13:59 Pulse 71 09/02/22 13:59 Resp 16 09/02/22 13:59 BP 128/72 09/02/22 13:59 Pulse Ox 97 09/02/22 13:59 FiO2 Intake & Output 09/01/22 09/02/22 09/02/22 18:59 06:59 18:59 Weight 80.739 kg - Objective - Vital Signs Vital signs: Vital Signs Temp 98.5 F 09/16/22 12:43 Pulse 67 09/16/22 12:43 Resp 18 09/16/22 12:43 BP 128/64 09/16/22 12:43 Pulse Ox 97 09/16/22 12:43 FiO2 Intake & Output 09/15/22 09/16/22 09/16/22 18:59 06:59 18:59 Weight 80.286 kg - Constitutional General appearance: Present: cooperative - EENT Eyes: Present: EOMI ENT: Present: hearing grossly normal - Neck Neck: Present: normal ROM - Respiratory Respiratory: bilateral: CTA - Cardiovascular Heart sounds: normal: S1, S2 - Integumentary Integumentary Comment(s): nodule lateral aspect of left breast with some drainage Abscess draining right axilla draining of area bilateral buttock has had pilonidal cyst drained Integumentary: Present: normal turgor - Musculoskeletal Musculoskeletal: Present: gait normal - Psychiatric Psychiatric: Present: A&O x's 3, appropriate affect, intact judgment & insight - Additional findings Additional findings: Breast Exam: Area of drainage lateral to the nipple areolar aspect on the left Right breast: Multiple positional exam no dominant masses or nodules of concern Right axilla: Patient does have what appears to be a abscess in the right axilla anteriorly which is no longer draining, no other adenopathy of concern Left breast: Firmness near the area of drainage lateral to the nipple areolar complex firmness extending behind the areolar this is persistant Left axilla: No adenopathy of concern, shoddy adenoapthy Assessment and Plan Assessment: Impression: 2 CT 3CVA 1 seizure diabetes vascular disease infected sebaceous cyst area left breast, cyst right axilla no longer draining Plan: Is recommended that the patient have resection of the previously infected sebaceous cyst in his left breast at this time he is considering if he would like to do that. I strongly recommended that he stop smoking he understands that we'll consider that as well I've also suggested that he see a records analysis manager related to the chronic buttock infection CC: Dr. Carpenter Additional CC's: Riana Carpenter
== END ==
LOC: WWCWWP 12:23
PROVIDERS: ATTEND Surgery
DX: I21.9 Acute myocardial infarction, unspecified (principal); G40.909 Epilepsy, unspecified, not intractable, without status epilepticus; I63.9 Cerebral infarction, unspecified; E11.9 Type 2 diabetes mellitus without complications; I73.9 Peripheral vascular disease, unspecified; N60.02 Solitary cyst of left breast; L02.411 Cutaneous abscess of right axilla; F17.210 Nicotine dependence, cigarettes, uncomplicated

== ENCOUNTER → 2024-08-03 | Outpatient (CLI) | payer OTHER ==
--- NOTE | 2024-08-03 13:23 | CTL ---
EXAMINATION TYPE: CT Low Dose Lung DATE OF EXAM: 08/03/2024 1:11 PM COMPARISON: None. SCREENING VISIT: Initial CT DIAGNOSTIC QUALITY: Satisfactory CLINICAL INDICATION: Male, 59 years old with history of Z12.2 SCREENING LUNG CA F17.210 CURRENT SMOKE R, Personal hx nicotine dependence current smoker, 1.5 ppd x 43 years Hx CAD, PVD, Lung cancer screen ing, History of tobacco use. TECHNIQUE: Low dose computed tomography scan was performed through the chest at 1 mm thick sections a nd reconstructed images in the coronal plane at 1 mm thick sections. Contrast used: mL of , (none if empty) Oral contrast used: (none if empty) CT DLP: 133.30 mGycm, Automated exposure control for dose reduction was used. CT CTDI: 3.6 mGy, Automated exposure control for dose reduction was used. FINDINGS: LUNG NODULES: None. LUNGS: COPD: Severity: Minimal Fibrosis: Severity: None Lymph nodes: Small shoddy lymphadenopathies within the mediastinum. No enlarged mediastinal, hilar or upper abdominal adenopathy evident. Other findings: None RIGHT PLEURAL SPACE: Effusion: None Calcification: None Thickening: None Pneumothorax: None LEFT PLEURAL SPACE: Effusion: None Calcification: None Thickening: None Pneumothorax: None HEART: Other: Ascending thoracic aorta at the level the main pulmonary artery measures 4.4 cm. The main pul monary artery at the bifurcation measures3.0 cm. Heart Size: Normal Coronary calcification: Moderate Pericardial effusion: None OTHER FINDINGS: Upper abdomen: Normal Bony thorax: Normal Supraclavicular region: Normal IMPRESSION: 1. No suspicious changes to suggest primary or metastatic neoplasm. 2. Ascending thoracic aortic aneurysm 4.[address] CHEST RECOMMENDATION: Follow-up low-dose CT chest one year CT LUNG RAD: Lung-Rad 1 Negative [facility], , 08/03/2024 1:20 PM
== END | disposition home or self-care (01) ==
LOC: RADCTMAIN 12:43
PROVIDERS: ATTEND Family Medicine
DX: Z12.2 Encounter for screening for malignant neoplasm of respiratory organs (principal); J44.9 Chronic obstructive pulmonary disease, unspecified; F17.210 Nicotine dependence, cigarettes, uncomplicated; I71.21 Aneurysm of the ascending aorta, without rupture
CPT/HCPCS: 71271